=== PATIENT | female | born 1940 | race Caucasian/White ===

== ENCOUNTER → 2016-10-22 | Outpatient (CLI) | payer OTHER ==
[~2016-10-22] MED LIST: AMLO10TA2 PO; ASPI-231 PO; CALC600T10 OR; CIPR-173 PO; CLON0.5T PO; CYAN500T25 PO; DICY10CA55 PO; EST0625T PO; FLUO40CA PO; FLUT250A IN; LACT10CA2 OR; LANS15CA21 PO; LEVO75TA50 PO; LOP2C PO; MELO-61 PO; MES400T PO; METO-462 PO; MULTTAB OR; NOR10T PO; OXCA600T3 PO; POTATAB17 PO; PRA1C PO; SIMV40TA96 PO; TRAZ50T PO; [UNRECOGNIZED DRUG - CODE] OR
[2016-10-22 13:17] LABS: Basophils # (auto) 0 uL; Basophils % (auto) 0.4 % (0.0-2.0); Eosinophils # (auto) 0 uL; Eosinophils % (auto) 0.1 % (0.0-7.0); Hematocrit 35.9 % (36.0-46.0); Hemoglobin 12.1 g/dL (12.2-16.2); Lymphocytes # (auto) 0.8 uL; Lymphocytes % (auto) 16.1 % (10.0-50.0); Mean Corpuscular Hemoglobin 30.2 pg (28.0-32.0); Mean Corpuscular Hgb Conc. 33.8 g/dL (32.0-36.0); Mean Corpuscular Volume 89.6 fL (80.0-100.0); Mean Platelet Volume 7.8 fL (7.4-10.4); Monocytes # (auto) 0.4 uL; Monocytes % (auto) 7.9 % (0.0-12.0); Neutrophils # (auto) 3.8 uL; Neutrophils % (auto) 75.5 % (37.0-80.0); Platelet Count (auto) 224 10^3/uL (140-450); Red Cell Distribution Width 14.5 % (11.6-16.0)
[2016-10-22 14:04] LABS: Urine Bilirubin Negative (Negative); Urine Blood Negative /uL (Negative); Urine Color Yellow (Yellow); Urine Glucose Normal (Normal); Urine Ketone Negative (Negative); Urine Mucus FEW (None Seen); Urine RBC 1 /hpf (0 - 4); Urine Squamous Epithelial Cell FEW /hpf (<5); Urine Urobilinogen Normal (Negative); Urine pH 6.5 (5.0-8.0)
[2016-10-22 14:05] LABS: Urine Nitrite POSITIVE (Negative)
[2016-10-22 15:24] LABS: Albumin 3.8 g/dL (3.4-5.0); BUN/Creatinine Ratio 25.6; Bilirubin, Total 0.5 mg/dL (0.2-1.0); Calcium 9.3 mg/dL (8.5-10.1); Potassium 4.4 mmol/L (3.5-5.1); Total Protein 7.3 g/dL (6.4-8.2)
== END | disposition home or self-care (01) ==
LOC: LAB 11:29
PROVIDERS: ATTEND Family Medicine
DX: E03.9 Hypothyroidism, unspecified (principal); I10 Essential (primary) hypertension; M12.9 Arthropathy, unspecified
CPT/HCPCS: 36415; 80053; 80061; 81001; 82306; 82607; 84443; 85025

== ENCOUNTER 2017-06-29 10:42 | Emergency (ER) | payer OTHER ==
[~2017-06-29] VITALS: Ht 165.1 cm; Wt 61.2 kg
[2017-06-29 13:17] VITALS: BP 113/65
== END 2017-06-29 13:20 | disposition home or self-care (01) ==
LOC: ER 10:42
DX: M79.604 Pain in right leg (principal); E78.5 Hyperlipidemia, unspecified; I10 Essential (primary) hypertension; E07.89 Other specified disorders of thyroid; Z90.710 Acquired absence of both cervix and uterus; Z90.89 Acquired absence of other organs; Z79.899 Other long term (current) drug therapy; Z88.6 Allergy status to analgesic agent; Z88.2 Allergy status to sulfonamides
CPT/HCPCS: 93971

== ENCOUNTER 2017-10-29 16:15 | Emergency (ER) | payer OTHER ==
[~2017-10-29] VITALS: Ht 152.4 cm; Wt 59.0 kg
[2017-10-29 16:44] VITALS: BP 106/56
[2017-10-29] MEDS ORDERED: KETOROLAC TROMETH 60MG/2ML VIAL IM ONE (20:00)
[2017-10-29] MEDS ORDERED: TRIAMCINOLONE 40MG/ML 1ML VIAL IM ONE (20:15)
== END 2017-10-29 20:33 | disposition home or self-care (01) ==
LOC: ER 16:23
DX: S39.92XA Unspecified injury of lower back, initial encounter (principal); M62.838 Other muscle spasm; I10 Essential (primary) hypertension; E07.89 Other specified disorders of thyroid; E78.5 Hyperlipidemia, unspecified; Z90.710 Acquired absence of both cervix and uterus; Z90.89 Acquired absence of other organs; Z79.899 Other long term (current) drug therapy; Z88.2 Allergy status to sulfonamides; Z88.6 Allergy status to analgesic agent; Z88.8 Allergy status to other drugs, medicaments and biological substances; W19.XXXA Unspecified fall, initial encounter; Y93.89 Activity, other specified; Y99.8 Other external cause status; Y92.89 Other specified places as the place of occurrence of the external cause
CPT/HCPCS: 70486; 72131; 73120; 96372; 99284; J1885; J3301

== ENCOUNTER → 2017-11-17 | Outpatient (CLI) | payer OTHER ==
[2017-11-17 12:38] LABS: Basophils # (auto) 0.1 uL; Basophils % (auto) 1.1 % (0.0-2.0); Eosinophils # (auto) 0 uL; Hematocrit 38.2 % (36.0-46.0); Hemoglobin 12.8 g/dL (12.2-16.2); Lymphocytes # (auto) 0.9 uL; Lymphocytes % (auto) 18.7 % (10.0-50.0); Mean Corpuscular Hemoglobin 30.1 pg (28.0-32.0); Mean Corpuscular Hgb Conc. 33.4 g/dL (32.0-36.0); Mean Corpuscular Volume 90.1 fL (80.0-100.0); Monocytes # (auto) 0.3 uL; Monocytes % (auto) 6.3 % (0.0-12.0); Neutrophils # (auto) 3.7 uL; Neutrophils % (auto) 72.9 % (37.0-80.0); Nucleated Red Blood Cells % 0.2 %; Platelet Count (auto) 215 10^3/uL (140-450); Red Blood Cells 4.24 10^6/uL (4.0-5.20); Red Cell Distribution Width 14.7 % (11.8-14.3); White Blood Cell 5.1 10^3/uL (4.4-10.8)
[2017-11-17 12:49] LABS: INR 0.92 (0.9-1.15); Partial Thromboplastin Time 23.5 sec (22.64-33.71)
[2017-11-17 12:53] LABS: Urine Bacteria MOD /hpf (None Seen); Urine Blood Negative /uL (Negative); Urine Hyaline Cast FEW /lpf (0 - 2); Urine Mucus FEW (None Seen); Urine Specific Gravity 1.034 (1.001-1.035); Urine WBC 24 /hpf (0 - 5)
[2017-11-17 13:30] LABS: Bilirubin, Total 0.5 mg/dL (0.2-1.0); Calcium 9.1 mg/dL (8.5-10.1); Potassium 3.8 mmol/L (3.5-5.1); Total Protein 7.4 g/dL (6.4-8.2)
== END | disposition home or self-care (01) ==
LOC: LAB 12:20
PROVIDERS: ATTEND Family Medicine
DX: Z01.811 Encounter for preprocedural respiratory examination (principal); H33.20 Serous retinal detachment, unspecified eye; I10 Essential (primary) hypertension; E78.5 Hyperlipidemia, unspecified; Z79.899 Other long term (current) drug therapy
CPT/HCPCS: 36415; 80053; 81001; 85025; 85610; 85730

== ENCOUNTER 2018-03-10 09:11 | Inpatient (IN) | payer OTHER ==
[~2018-03-10] VITALS: Ht 152.4 cm; Wt 62.0 kg
[2018-03-10 09:57] LABS: Basophils # (auto) 0.1 uL; Basophils % (auto) 0.8 % (0.0-2.0); Eosinophils # (auto) 0 uL; Eosinophils % (auto) 0.4 % (0.0-7.0); Hematocrit 35.3 % (36.0-46.0); Hemoglobin 12.5 g/dL (12.2-16.2); Lymphocytes # (auto) 1.2 uL; Lymphocytes % (auto) 19.7 % (10.0-50.0); Mean Corpuscular Hemoglobin 31.4 pg (28.0-32.0); Mean Corpuscular Hgb Conc. 35.3 g/dL (32.0-36.0); Mean Corpuscular Volume 88.9 fL (80.0-100.0); Monocytes # (auto) 0.4 uL; Neutrophils # (auto) 4.6 uL; Neutrophils % (auto) 73.1 % (37.0-80.0); Nucleated Red Blood Cells % 0.3 %; Platelet Count (auto) 222 10^3/uL (140-450); Red Blood Cells 3.98 10^6/uL (4.0-5.20); Red Cell Distribution Width 14.7 % (11.8-14.3); White Blood Cell 6.3 10^3/uL (4.4-10.8)
[2018-03-10 10:14] LABS: Albumin 3.8 g/dL (3.4-5.0); BUN/Creatinine Ratio 14.5; Bilirubin, Total 0.6 mg/dL (0.2-1.0); Calcium 8.8 mg/dL (8.5-10.1); Potassium 3.7 mmol/L (3.5-5.1); Total Protein 6.9 g/dL (6.4-8.2)
[2018-03-10] MEDS ORDERED: SODIUM CHLORIDE 0.9% 1,000 ML IVB ONE (11:11)
[2018-03-10] MEDS ORDERED: NALBUPHINE HCL 10 MG/1ml INJECTION IV ONE (11:15)
[2018-03-10] MEDS ORDERED: PROMETHAZINE HCL 25 MG/ML 1ML IV PRN (11:15)
[2018-03-10 11:50] LABS: Magnesium 1.8 mg/dL (1.6-2.6)
[2018-03-10 14:12] LABS: Urine Bacteria NONE SEEN /hpf (None Seen); Urine Blood Negative /uL (Negative); Urine Specific Gravity 1.021 (1.001-1.035); Urine WBC 1 /hpf (0 - 5)
[2018-03-10] MEDS ORDERED: NITROGLYCERIN 0.4 MG SL TAB SL PRN (15:15)
[2018-03-10] MEDS ORDERED: MORPHINE SULF INJ 2 MG/ML SYRINGE 1ML IV PRN (15:15)
[2018-03-10] MEDS ORDERED: ACETAMINOPHEN 500 MG TAB PO PRN (15:15)
[2018-03-10] MEDS: SODIUM CHLORIDE 0.9% 1,000 ML IV SCH ×2 (15:19→15:26)
[2018-03-10] MEDS: PANTOPRAZOLE 40 MG/10 ML VIAL IV ONE ×2 (15:19→15:27)
[2018-03-10] MEDS ORDERED: GASTROGRAFIN 30 ML SOL ONE (15:24)
[2018-03-10] MEDS: PROMETHAZINE HCL 25 MG/ML 1ML IV PRN (15:32)
[2018-03-10 15:41] LABS: CRP High Sensitivity 0.3 mg/dL (< 0.3)
[2018-03-10] MEDS ORDERED: IOHEXOL 300 MG/ML 100ML BOTTLE IJ ONE (17:58)
[2018-03-10] MEDS: prednisoLONE ACETATE 1% OPTH SUSP 5ML RIGHTEYE SCH ×2 (18:15→22:00)
[2018-03-10 18:28] VITALS: BP 119/66
[2018-03-10 20:00] VITALS: BP 119/66
[2018-03-10 20:55] VITALS: BP 119/66
[2018-03-10] MEDS: PANTOPRAZOLE 40 MG/10 ML VIAL IV SCH (23:00)
[2018-03-10] MEDS ORDERED: FLUO20CA19 PO (23:15)
[2018-03-10] MEDS ORDERED: TEMAZEPAM 15 MG CAP PO ONE (23:15)
[2018-03-10] MEDS ORDERED: DICY10CA55 PO (23:15)
[2018-03-10] MEDS ORDERED: ASPI81TA27 PO (23:15)
[2018-03-10] MEDS ORDERED: METO-158 PO (23:15)
[2018-03-10] MEDS ORDERED: MELO-61 PO (23:15)
[2018-03-10] MEDS ORDERED: SIMV40TA96 PO (23:15)
[2018-03-10] MEDS ORDERED: TRAZ150T79 PO (23:15)
[2018-03-10] MEDS ORDERED: LEVO75TA50 PO (23:15)
[2018-03-10] MEDS ORDERED: TRAM50TA2 PO (23:19)
[2018-03-10] MEDS ORDERED: MULT-228 PO (23:19)
[2018-03-10] MEDS ORDERED: CHOL400C12 PO (23:19)
[2018-03-10] MEDS ORDERED: PRA1C PO (23:19)
[2018-03-10] MEDS ORDERED: OXCA150T3 PO (23:19)
[2018-03-10] MEDS: MORPHINE SULFATE 4 MG/ML SYR/VIAL IV PRN (23:40)
[2018-03-11] MEDS: SODIUM CHLORIDE 0.9% 1,000 ML IV SCH ×2 (01:15→11:31)
[2018-03-11] MEDS: prednisoLONE ACETATE 1% OPTH SUSP 5ML RIGHTEYE SCH ×6 (02:00→21:27)
[2018-03-11 05:00] VITALS: BP 132/94
[2018-03-11 07:33] LABS: BUN/Creatinine Ratio 11.3; Bilirubin, Total 0.6 mg/dL (0.2-1.0); Calcium 7.9 mg/dL (8.5-10.1); Potassium 4.7 mmol/L (3.5-5.1); Total Protein 5.6 g/dL (6.4-8.2)
[2018-03-11 08:22] VITALS: BP 132/65
[2018-03-11] MEDS ORDERED: PANTOPRAZOLE 40 MG/10 ML VIAL IV SCH (10:00)
[2018-03-11] MEDS: MORPHINE SULFATE 4 MG/ML SYR/VIAL IV PRN ×4 (10:15→23:58)
[2018-03-11] MEDS: ASPirin-EC 81 mg tab PO SCH (10:39)
[2018-03-11] MEDS: PANTOPRAZOLE 40 MG/10 ML VIAL IV SCH ×2 (10:39→21:27)
[2018-03-11] MEDS: LACTULOSE 20Gm/30ML SOLN PO PRN (11:31)
[2018-03-11 12:56] VITALS: BP 128/71
[2018-03-11] MEDS: PROMETHAZINE HCL 25 MG/ML 1ML IV PRN ×2 (14:22→19:32)
[2018-03-11 22:17] VITALS: BP 132/62
[2018-03-12] MEDS: prednisoLONE ACETATE 1% OPTH SUSP 5ML RIGHTEYE SCH ×6 (02:16→21:20)
[2018-03-12] MEDS: SODIUM CHLORIDE 0.9% 1,000 ML IV SCH ×3 (02:16→17:15)
[2018-03-12 05:20] VITALS: BP 160/82
[2018-03-12 06:09] LABS: Basophils # (auto) 0.1 uL; Basophils % (auto) 1.1 % (0.0-2.0); Eosinophils # (auto) 0.1 uL; Eosinophils % (auto) 2.1 % (0.0-7.0); Hematocrit 30.2 % (36.0-46.0); Hemoglobin 10.8 g/dL (12.2-16.2); Lymphocytes # (auto) 1.7 uL; Lymphocytes % (auto) 33.9 % (10.0-50.0); Mean Corpuscular Hemoglobin 32.1 pg (28.0-32.0); Mean Corpuscular Hgb Conc. 35.7 g/dL (32.0-36.0); Mean Corpuscular Volume 89.9 fL (80.0-100.0); Monocytes # (auto) 0.4 uL; Monocytes % (auto) 8.1 % (0.0-12.0); Neutrophils # (auto) 2.7 uL; Neutrophils % (auto) 54.8 % (37.0-80.0); Nucleated Red Blood Cells % 0.1 %; Platelet Count (auto) 172 10^3/uL (140-450); Red Blood Cells 3.36 10^6/uL (4.0-5.20); Red Cell Distribution Width 14.2 % (11.8-14.3); White Blood Cell 4.9 10^3/uL (4.4-10.8)
[2018-03-12 06:38] LABS: BUN/Creatinine Ratio 5.6; Calcium 8.3 mg/dL (8.5-10.1); Potassium 4.2 mmol/L (3.5-5.1)
[2018-03-12 08:46] VITALS: BP 140/75
[2018-03-12] MEDS: LACTULOSE 20Gm/30ML SOLN PO PRN (09:00)
[2018-03-12] MEDS: PANTOPRAZOLE 40 MG/10 ML VIAL IV SCH ×2 (11:46→21:20)
[2018-03-12] MEDS: ASPirin-EC 81 mg tab PO SCH (11:47)
[2018-03-12] MEDS ORDERED: hydrALAZINE HCL 20 MG/ML VL IV PRN (12:00)
[2018-03-12 13:00] VITALS: BP 150/81
[2018-03-12] MEDS: MORPHINE SULFATE 4 MG/ML SYR/VIAL IV PRN ×4 (13:26→23:23)
[2018-03-12] MEDS: PROMETHAZINE HCL 25 MG/ML 1ML IV PRN ×2 (13:26→18:14)
[2018-03-12 17:04] VITALS: BP 152/101
[2018-03-12 21:59] VITALS: BP 135/70
[2018-03-13] MEDS: prednisoLONE ACETATE 1% OPTH SUSP 5ML RIGHTEYE SCH ×6 (01:57→21:09)
[2018-03-13] MEDS: SODIUM CHLORIDE 0.9% 1,000 ML IV SCH ×3 (04:27→17:18)
[2018-03-13 05:00] VITALS: BP 128/74
[2018-03-13 07:03] LABS: Basophils # (auto) 0.1 uL; Basophils % (auto) 1.2 % (0.0-2.0); Eosinophils # (auto) 0.1 uL; Eosinophils % (auto) 1.7 % (0.0-7.0); Hematocrit 35.5 % (36.0-46.0); Hemoglobin 12.4 g/dL (12.2-16.2); Lymphocytes # (auto) 1.4 uL; Lymphocytes % (auto) 24.5 % (10.0-50.0); Mean Corpuscular Hemoglobin 31.8 pg (28.0-32.0); Mean Corpuscular Hgb Conc. 34.9 g/dL (32.0-36.0); Mean Corpuscular Volume 91.1 fL (80.0-100.0); Monocytes # (auto) 0.5 uL; Monocytes % (auto) 7.8 % (0.0-12.0); Neutrophils # (auto) 3.7 uL; Neutrophils % (auto) 64.8 % (37.0-80.0); Nucleated Red Blood Cells % 0.2 %; Platelet Count (auto) 205 10^3/uL (140-450); Red Cell Distribution Width 14.1 % (11.8-14.3); White Blood Cell 5.8 10^3/uL (4.4-10.8)
[2018-03-13 07:23] LABS: BUN/Creatinine Ratio 3.4; Calcium 8.6 mg/dL (8.5-10.1)
[2018-03-13 09:25] VITALS: BP 138/85
[2018-03-13] MEDS: PANTOPRAZOLE 40 MG/10 ML VIAL IV SCH ×2 (10:22→21:09)
[2018-03-13] MEDS: ASPirin-EC 81 mg tab PO SCH (10:23)
[2018-03-13] MEDS: MORPHINE SULFATE 4 MG/ML SYR/VIAL IV PRN (12:18)
[2018-03-13 13:00] VITALS: BP 140/72
[2018-03-13 17:03] VITALS: BP 127/86
[2018-03-13] MEDS: ENSURE CLEAR Mixed Berry 8oz Carton PO SCH (18:00)
[2018-03-13] MEDS: MORPHINE SULF INJ 2 MG/ML SYRINGE 1ML IV PRN (21:09)
[2018-03-13 22:00] VITALS: BP 135/78
[2018-03-13] MEDS: LORazepam 0.5 MG TAB PO PRN (22:14)
[2018-03-14] MEDS: prednisoLONE ACETATE 1% OPTH SUSP 5ML RIGHTEYE SCH ×6 (01:57→22:43)
[2018-03-14 05:00] VITALS: BP 135/73
[2018-03-14 06:10] LABS: Basophils # (auto) 0.1 uL; Basophils % (auto) 1.2 % (0.0-2.0); Eosinophils # (auto) 0.1 uL; Eosinophils % (auto) 3.1 % (0.0-7.0); Hematocrit 31.9 % (36.0-46.0); Hemoglobin 11.4 g/dL (12.2-16.2); Lymphocytes # (auto) 1.2 uL; Lymphocytes % (auto) 26.4 % (10.0-50.0); Mean Corpuscular Hemoglobin 32.5 pg (28.0-32.0); Mean Corpuscular Hgb Conc. 35.7 g/dL (32.0-36.0); Mean Corpuscular Volume 91.1 fL (80.0-100.0); Monocytes # (auto) 0.4 uL; Monocytes % (auto) 8.2 % (0.0-12.0); Neutrophils # (auto) 2.8 uL; Neutrophils % (auto) 61.1 % (37.0-80.0); Nucleated Red Blood Cells % 0.1 %; Platelet Count (auto) 173 10^3/uL (140-450); Red Cell Distribution Width 14.1 % (11.8-14.3); White Blood Cell 4.5 10^3/uL (4.4-10.8)
[2018-03-14 06:30] LABS: Calcium 8.6 mg/dL (8.5-10.1)
[2018-03-14 06:32] LABS: BUN/Creatinine Ratio 3.9
[2018-03-14 09:00] VITALS: BP 128/77
[2018-03-14] MEDS: ASPirin-EC 81 mg tab PO SCH (09:37)
[2018-03-14] MEDS: PANTOPRAZOLE 40 MG/10 ML VIAL IV SCH ×2 (09:37→21:20)
[2018-03-14] MEDS: ENSURE CLEAR Mixed Berry 8oz Carton PO SCH ×2 (09:37→17:40)
[2018-03-14] MEDS: SODIUM CHLORIDE 0.9% 1,000 ML IV SCH (09:37)
[2018-03-14 10:44] LABS: INR 0.96 (0.9-1.15); Partial Thromboplastin Time 24.2 sec (23.78-33.04); Prothrombin Time 10.3 sec (9.27-12.13)
[2018-03-14] MEDS ORDERED: GOLYTELY 4L KIT PO ONE (12:00)
[2018-03-14] MEDS: MORPHINE SULF INJ 2 MG/ML SYRINGE 1ML IV PRN (12:26)
[2018-03-14 13:00] VITALS: BP 127/75
[2018-03-14] MEDS: LORazepam 0.5 MG TAB PO PRN ×2 (15:22→23:31)
[2018-03-14 17:00] VITALS: BP 144/61
[2018-03-14] MEDS ORDERED: MORPHINE SULF INJ 2 MG/ML SYRINGE 1ML IV PRN (17:45)
[2018-03-14] MEDS: MORPHINE SULFATE 4 MG/ML SYR/VIAL IV PRN (21:20)
[2018-03-14 22:00] VITALS: BP 171/97
[2018-03-15] MEDS ORDERED: METOPROLOL TARTRATE 1MG/1ML-5ML VIAL IV ONE (01:45)
[2018-03-15] MEDS: prednisoLONE ACETATE 1% OPTH SUSP 5ML RIGHTEYE SCH ×6 (01:48→22:11)
[2018-03-15] MEDS: TEMAZEPAM 15 MG CAP PO PRN ×2 (02:11→22:12)
[2018-03-15] MEDS: SODIUM CHLORIDE 0.9% 1,000 ML IV SCH ×2 (02:20→19:00)
[2018-03-15] MEDS ORDERED: GOLYTELY 4L KIT PO ONE (05:00)
[2018-03-15 05:41] VITALS: BP 117/53
[2018-03-15 07:38] LABS: Basophils # (auto) 0.1 uL; Basophils % (auto) 1.4 % (0.0-2.0); Eosinophils # (auto) 0.2 uL; Eosinophils % (auto) 3.2 % (0.0-7.0); Hematocrit 28.8 % (36.0-46.0); Hemoglobin 9.9 g/dL (12.2-16.2); Lymphocytes # (auto) 1.7 uL; Lymphocytes % (auto) 34.7 % (10.0-50.0); Mean Corpuscular Hemoglobin 31.4 pg (28.0-32.0); Mean Corpuscular Hgb Conc. 34.4 g/dL (32.0-36.0); Mean Corpuscular Volume 91.3 fL (80.0-100.0); Monocytes # (auto) 0.4 uL; Monocytes % (auto) 7.3 % (0.0-12.0); Neutrophils # (auto) 2.6 uL; Neutrophils % (auto) 53.4 % (37.0-80.0); Nucleated Red Blood Cells % 0.1 %; Platelet Count (auto) 158 10^3/uL (140-450); Red Blood Cells 3.16 10^6/uL (4.0-5.20); Red Cell Distribution Width 14.5 % (11.8-14.3); White Blood Cell 4.9 10^3/uL (4.4-10.8)
[2018-03-15 07:56] LABS: BUN/Creatinine Ratio 2.9; Calcium 8.2 mg/dL (8.5-10.1); Potassium 3.7 mmol/L (3.5-5.1)
[2018-03-15] MEDS: ENSURE CLEAR Mixed Berry 8oz Carton PO SCH ×2 (08:00→18:00)
[2018-03-15] MEDS ORDERED: SODIUM CHLORIDE LOCK 10 ML ONE (08:11)
[2018-03-15] MEDS ORDERED: LIDOCAINE VISCOUS 2% 15ML UD ONE (08:12)
[2018-03-15] MEDS ORDERED: diphenhdrAMINE HCL 50 MG/1 ML VL ONE (08:12)
[2018-03-15 08:15] VITALS: BP 140/66
[2018-03-15] MEDS: MORPHINE SULFATE 4 MG/ML SYR/VIAL IV PRN ×3 (09:28→20:35)
[2018-03-15] MEDS ORDERED: D5W/SOD CHL 0.45%/KCL 40MEQ 1,000 ML IV ONE (09:45)
[2018-03-15] MEDS: MIDAZOLAM HCL 5 MG/ML-1ML VIAL ONE ×2 (10:09→10:12)
[2018-03-15] MEDS: fentaNYL CITRATE 100 MCG/2 ML VL ONE ×2 (10:09→10:12)
[2018-03-15] MEDS: ASPirin-EC 81 mg tab PO SCH (12:59)
[2018-03-15] MEDS: METOPROLOL TARTRATE 50 MG TAB PO SCH ×2 (13:00→22:10)
[2018-03-15 17:00] VITALS: BP 137/61
[2018-03-15 22:00] VITALS: BP 133/71
[2018-03-15] MEDS: PANTOPRAZOLE 40 MG TAB PO SCH (22:11)
[2018-03-16] MEDS: prednisoLONE ACETATE 1% OPTH SUSP 5ML RIGHTEYE SCH ×6 (02:00→22:13)
[2018-03-16 05:39] VITALS: BP 139/79
[2018-03-16 06:24] LABS: Basophils # (auto) 0.1 uL; Basophils % (auto) 1.2 % (0.0-2.0); Eosinophils # (auto) 0.2 uL; Eosinophils % (auto) 3.2 % (0.0-7.0); Hematocrit 30.2 % (36.0-46.0); Hemoglobin 10.6 g/dL (12.2-16.2); Lymphocytes # (auto) 1.5 uL; Lymphocytes % (auto) 28.7 % (10.0-50.0); Mean Corpuscular Hemoglobin 32.2 pg (28.0-32.0); Mean Corpuscular Hgb Conc. 35.1 g/dL (32.0-36.0); Mean Corpuscular Volume 91.7 fL (80.0-100.0); Monocytes # (auto) 0.4 uL; Monocytes % (auto) 7.9 % (0.0-12.0); Nucleated Red Blood Cells % 0.1 %; Platelet Count (auto) 159 10^3/uL (140-450); Red Cell Distribution Width 14.4 % (11.8-14.3); White Blood Cell 5.2 10^3/uL (4.4-10.8)
[2018-03-16 06:43] LABS: Potassium 4.3 mmol/L (3.5-5.1)
[2018-03-16 06:47] LABS: BUN/Creatinine Ratio 7.8; Calcium 8.3 mg/dL (8.5-10.1)
[2018-03-16 08:00] VITALS: BP 143/86
[2018-03-16] MEDS: ENSURE CLEAR Mixed Berry 8oz Carton PO SCH ×2 (08:00→18:00)
[2018-03-16 08:55] VITALS: BP 143/86
[2018-03-16] MEDS ORDERED: GOLYTELY 4L KIT PO ONE (10:30)
[2018-03-16] MEDS: PANTOPRAZOLE 40 MG TAB PO SCH ×2 (11:45→22:13)
[2018-03-16] MEDS: ASPirin-EC 81 mg tab PO SCH (11:45)
[2018-03-16] MEDS: METOPROLOL TARTRATE 50 MG TAB PO SCH ×2 (11:45→22:14)
[2018-03-16 11:54] VITALS: BP 154/74
[2018-03-16] MEDS: MORPHINE SULFATE 4 MG/ML SYR/VIAL IV PRN ×3 (11:55→22:24)
[2018-03-16] MEDS: SODIUM CHLORIDE 0.9% 1,000 ML IV SCH (16:07)
[2018-03-16 17:46] VITALS: BP 131/76
[2018-03-16 21:40] VITALS: BP 142/98
[2018-03-17] MEDS: prednisoLONE ACETATE 1% OPTH SUSP 5ML RIGHTEYE SCH ×4 (02:34→14:00)
[2018-03-17] MEDS: MORPHINE SULFATE 4 MG/ML SYR/VIAL IV PRN ×2 (02:34→06:34)
[2018-03-17] MEDS: SODIUM CHLORIDE 0.9% 1,000 ML IV SCH (04:20)
[2018-03-17 05:08] VITALS: BP 112/73
[2018-03-17] MEDS ORDERED: GOLYTELY 4L KIT PO ONE (06:00)
[2018-03-17] MEDS ORDERED: D5W/SOD CHL 0.45%/KCL 20MEQ 1,000 ML IV ONE (06:00)
[2018-03-17 06:06] LABS: Basophils # (auto) 0 uL; Basophils % (auto) 0.8 % (0.0-2.0); Eosinophils # (auto) 0.1 uL; Eosinophils % (auto) 1.7 % (0.0-7.0); Hemoglobin 10.6 g/dL (12.2-16.2); Lymphocytes # (auto) 1.3 uL; Lymphocytes % (auto) 21.5 % (10.0-50.0); Mean Corpuscular Hemoglobin 32.6 pg (28.0-32.0); Mean Corpuscular Hgb Conc. 35.4 g/dL (32.0-36.0); Mean Corpuscular Volume 92.1 fL (80.0-100.0); Monocytes # (auto) 0.5 uL; Monocytes % (auto) 8.6 % (0.0-12.0); Neutrophils % (auto) 67.4 % (37.0-80.0); Platelet Count (auto) 163 10^3/uL (140-450); Red Blood Cells 3.25 10^6/uL (4.0-5.20); Red Cell Distribution Width 14.2 % (11.8-14.3)
[2018-03-17 06:25] LABS: Potassium 4.4 mmol/L (3.5-5.1)
[2018-03-17 06:32] LABS: BUN/Creatinine Ratio 7.6; Calcium 8.3 mg/dL (8.5-10.1)
[2018-03-17 08:00] VITALS: BP 126/75
[2018-03-17] MEDS: ENSURE CLEAR Mixed Berry 8oz Carton PO SCH (08:00)
[2018-03-17] MEDS ORDERED: diphenhdrAMINE HCL 50 MG/1 ML VL ONE (08:31)
[2018-03-17] MEDS ORDERED: SODIUM CHLORIDE LOCK 10 ML ONE (08:31)
[2018-03-17 09:00] VITALS: BP 126/65
[2018-03-17] MEDS: ASPirin-EC 81 mg tab PO SCH (09:48)
[2018-03-17] MEDS: PANTOPRAZOLE 40 MG TAB PO SCH (10:00)
[2018-03-17] MEDS: METOPROLOL TARTRATE 50 MG TAB PO SCH (10:00)
[2018-03-17] MEDS: fentaNYL CITRATE 100 MCG/2 ML VL ONE ×3 (12:36→12:45)
[2018-03-17] MEDS: MIDAZOLAM HCL 5 MG/ML-1ML VIAL ONE ×3 (12:36→12:45)
[2018-03-17 13:00] VITALS: BP 137/82
[2018-03-17 13:29] VITALS: BP 123/51
[2018-03-17] MEDS ORDERED: SODIUM CHLORIDE 0.9% 1,000 ML IV SCH (16:00)
== END 2018-03-17 15:00 | disposition home or self-care (01) | DRG 392 ==
LOC: ER 09:11 → TELE 09:12 → MERGE 09:12 → TELE-CENTR 18:28
PROVIDERS: ADMIT Internal Medicine; ATTEND Internal Medicine
PROC: 0DB68ZX Excision of Stomach, Via Natural or Artificial Opening Endoscopic, Diagnostic (ICD-10-PCS; principal; 2018-03-10)
PROC: 0DBL8ZX Excision of Transverse Colon, Via Natural or Artificial Opening Endoscopic, Diagnostic (ICD-10-PCS; 2018-03-10)
DX: K29.70 Gastritis, unspecified, without bleeding (principal); E87.1 Hypo-osmolality and hyponatremia; E44.0 Moderate protein-calorie malnutrition; R64 Cachexia; D64.9 Anemia, unspecified; E78.5 Hyperlipidemia, unspecified; F03.90 Unspecified dementia, unspecified severity, without behavioral disturbance, psychotic disturbance, mood disturbance, and anxiety; G89.29 Other chronic pain; I10 Essential (primary) hypertension; I25.10 Atherosclerotic heart disease of native coronary artery without angina pectoris; G25.0 Essential tremor; K52.9 Noninfective gastroenteritis and colitis, unspecified; F41.9 Anxiety disorder, unspecified; M54.9 Dorsalgia, unspecified; M19.90 Unspecified osteoarthritis, unspecified site; I70.90 Unspecified atherosclerosis; M47.9 Spondylosis, unspecified; K63.5 Polyp of colon; Z90.710 Acquired absence of both cervix and uterus; Z98.1 Arthrodesis status; Z68.26 Body mass index [BMI] 26.0-26.9, adult; Z88.5 Allergy status to narcotic agent; Z88.2 Allergy status to sulfonamides; Z88.8 Allergy status to other drugs, medicaments and biological substances
CPT/HCPCS: 36415; 43239; 45380; 71046; 74176; 74177; 80048; 80053; 81001; 82150; 82378; 82550; 83690; 83735; 83880; 84443; 84484; 85025; 85610; 85652; 85730; 86141; 93005; 93306; 96361; 96374; 96375; A6257; C9113; J2250

== ENCOUNTER 2018-03-18 20:33 | Inpatient (IN) | payer OTHER ==
[~2018-03-18] VITALS: Ht 152.4 cm; Wt 57.8 kg
[~2018-03-18 20:33] MED LIST changes: +ASPI81TA27 PO; +CHOL400C12 PO; +FLUO20CA19 PO; +METO-158 PO; +MULT-228 PO; +OXCA150T3 PO; +TRAM50TA2 PO; +TRAZ150T79 PO
[2018-03-18 21:56] LABS: Basophils # (auto) 0.1 uL; Basophils % (auto) 1.4 % (0.0-2.0); Eosinophils # (auto) 0 uL; Eosinophils % (auto) 0.7 % (0.0-7.0); Hematocrit 33.4 % (36.0-46.0); Hemoglobin 11.5 g/dL (12.2-16.2); Lymphocytes # (auto) 1.3 uL; Lymphocytes % (auto) 18.9 % (10.0-50.0); Mean Corpuscular Hemoglobin 31.5 pg (28.0-32.0); Mean Corpuscular Hgb Conc. 34.3 g/dL (32.0-36.0); Mean Corpuscular Volume 91.7 fL (80.0-100.0); Monocytes # (auto) 0.3 uL; Monocytes % (auto) 4.4 % (0.0-12.0); Neutrophils # (auto) 5.1 uL; Neutrophils % (auto) 74.6 % (37.0-80.0); Nucleated Red Blood Cells % 0.3 %; Platelet Count (auto) 214 10^3/uL (140-450); Red Blood Cells 3.65 10^6/uL (4.0-5.20); Red Cell Distribution Width 14.4 % (11.8-14.3); White Blood Cell 6.9 10^3/uL (4.4-10.8)
[2018-03-18 22:10] LABS: INR 0.97 (0.9-1.15); Partial Thromboplastin Time 24.5 sec (23.78-33.04); Prothrombin Time 10.4 sec (9.27-12.13)
[2018-03-18 22:17] LABS: Albumin 3.2 g/dL (3.4-5.0); BUN/Creatinine Ratio 7.8; Bilirubin, Total 0.6 mg/dL (0.2-1.0); Calcium 8.3 mg/dL (8.5-10.1); Magnesium 1.8 mg/dL (1.6-2.6); Potassium 3.4 mmol/L (3.5-5.1); Total Protein 6.3 g/dL (6.4-8.2)
[2018-03-18] MEDS ORDERED: LORazepam 2MG/ML-1ML VIAL IV ONE (23:30)
[2018-03-18 23:52] LABS: Urine Bacteria NONE SEEN /hpf (None Seen); Urine Blood Negative /uL (Negative); Urine Hyaline Cast FEW /lpf (0 - 2); Urine Mucus FEW (None Seen); Urine Specific Gravity 1.025 (1.001-1.035); Urine WBC 7 /hpf (0 - 5)
[2018-03-19] MEDS ORDERED: DOCUSATE SOD 100 MG CAP PO PRN (03:15)
[2018-03-19] MEDS ORDERED: NITROGLYCERIN 0.4 MG SL TAB SL PRN (03:15)
[2018-03-19] MEDS ORDERED: MORPHINE SULF INJ 2 MG/ML SYRINGE 1ML IV PRN (03:15)
[2018-03-19] MEDS ORDERED: POTASSIUM CHL 20 Meq TABLET PO ONE (04:30)
[2018-03-19] MEDS ORDERED: IOHEXOL 350 MG/ML 100ML IJ ONE (05:24)
[2018-03-19] MEDS: MESALAMINE 400mg Delayed Release Cap PO SCH ×3 (06:14→21:43)
[2018-03-19] MEDS: LEVOTHYROXINE SODIUM 25 MCG TAB PO SCH (06:21)
[2018-03-19] MEDS ORDERED: LORazepam 2MG/ML-1ML VIAL IV PRN ×2 (09:00)
[2018-03-19] MEDS ORDERED: cefTRIAXone 1GM/10ml IVPUSH 10 ML IV SCH (09:00)
[2018-03-19] MEDS: ENOXAPARIN SOD 40 MG/0.4 ML SYRINGE SC SCH (09:50)
[2018-03-19] MEDS: FLUoxetine HCL 20 MG CAP PO SCH (09:50)
[2018-03-19] MEDS: amLODIPine BESYLATE 5 MG TAB PO SCH (09:51)
[2018-03-19] MEDS: METOPROLOL TARTRATE 50 MG TAB PO SCH ×2 (09:52→21:48)
[2018-03-19] MEDS ORDERED: FAMOTIDINE 20 MG TAB PO SCH (10:00)
[2018-03-19] MEDS ORDERED: OXcarbazepine 300 MG TAB PO SCH (10:00)
[2018-03-19] MEDS ORDERED: clonazePAM 0.5 MG TAB PO SCH (10:00)
[2018-03-19] MEDS: ACETAMINOPHEN 325 MG TAB PO PRN (13:07)
[2018-03-19] MEDS ORDERED: OXCA600T3 PO (13:56)
[2018-03-19] MEDS ORDERED: clonazePAM 0.5 MG TAB PO PRN (15:45)
[2018-03-19 19:17] VITALS: BP 141/81
[2018-03-19 19:31] VITALS: BP 141/81
[2018-03-19 20:00] VITALS: BP 143/71
[2018-03-19] MEDS: OXcarbazepine 300 MG TAB PO SCH (21:43)
[2018-03-19] MEDS: PANTOPRAZOLE 40 MG TAB PO SCH (21:43)
[2018-03-19] MEDS: TEMAZEPAM 15 MG CAP PO PRN (21:44)
[2018-03-19] MEDS: HYDROcodone-ACET 5/325MG TAB PO PRN (21:44)
[2018-03-19 21:52] VITALS: BP 143/71
[2018-03-20 04:45] VITALS: BP 155/73
[2018-03-20 05:00] LABS: Basophils # (auto) 0.1 uL; Basophils % (auto) 2.4 % (0.0-2.0); Eosinophils # (auto) 0.1 uL; Eosinophils % (auto) 1.9 % (0.0-7.0); Hematocrit 29.9 % (36.0-46.0); Hemoglobin 10.5 g/dL (12.2-16.2); Lymphocytes # (auto) 1.5 uL; Lymphocytes % (auto) 34.2 % (10.0-50.0); Mean Corpuscular Hemoglobin 31.7 pg (28.0-32.0); Mean Corpuscular Hgb Conc. 35.1 g/dL (32.0-36.0); Mean Corpuscular Volume 90.4 fL (80.0-100.0); Monocytes # (auto) 0.3 uL; Monocytes % (auto) 7.7 % (0.0-12.0); Neutrophils # (auto) 2.4 uL; Neutrophils % (auto) 53.8 % (37.0-80.0); Nucleated Red Blood Cells % 0.2 %; Platelet Count (auto) 176 10^3/uL (140-450); Red Cell Distribution Width 14.1 % (11.8-14.3); White Blood Cell 4.5 10^3/uL (4.4-10.8)
[2018-03-20 05:18] LABS: Albumin 2.8 g/dL (3.4-5.0); BUN/Creatinine Ratio 8.4; Calcium 7.9 mg/dL (8.5-10.1); Potassium 3.3 mmol/L (3.5-5.1)
[2018-03-20 05:20] LABS: Bilirubin, Total 0.4 mg/dL (0.2-1.0); Total Protein 5.6 g/dL (6.4-8.2)
[2018-03-20] MEDS: LEVOTHYROXINE SODIUM 25 MCG TAB PO SCH (05:55)
[2018-03-20] MEDS: MESALAMINE 400mg Delayed Release Cap PO SCH ×3 (05:56→22:30)
[2018-03-20 08:22] VITALS: BP 122/69
[2018-03-20] MEDS: ENOXAPARIN SOD 40 MG/0.4 ML SYRINGE SC SCH (10:29)
[2018-03-20] MEDS: amLODIPine BESYLATE 5 MG TAB PO SCH (10:30)
[2018-03-20] MEDS: ACETAMINOPHEN 325 MG TAB PO PRN (10:30)
[2018-03-20] MEDS: METOPROLOL TARTRATE 50 MG TAB PO SCH ×2 (10:31→22:31)
[2018-03-20] MEDS: PANTOPRAZOLE 40 MG TAB PO SCH ×2 (10:31→22:31)
[2018-03-20] MEDS: FLUoxetine HCL 20 MG CAP PO SCH (10:31)
[2018-03-20] MEDS: OXcarbazepine 300 MG TAB PO SCH ×2 (10:32→22:31)
[2018-03-20 12:05] VITALS: BP 136/62
[2018-03-20] MEDS ORDERED: POTASSIUM CHL 20 Meq TABLET PO ONE (14:45)
[2018-03-20 16:43] VITALS: BP 129/63
[2018-03-20] MEDS ORDERED: VANCOMYCIN HCL 125MG/5ML ORAL SOL GT SCH (18:00)
[2018-03-20] MEDS: HYDROcodone-ACET 5/325MG TAB PO PRN (20:26)
[2018-03-20 22:00] VITALS: BP 114/79
[2018-03-20] MEDS: TEMAZEPAM 15 MG CAP PO PRN (22:31)
[2018-03-20] MEDS: VANCOMYCIN HCL 125MG/5ML ORAL SOL PO ONE ×2 (22:31→22:37)
[2018-03-21] MEDS: HYDROcodone-ACET 5/325MG TAB PO PRN ×3 (03:36→20:16)
[2018-03-21 04:57] VITALS: BP 131/75
[2018-03-21] MEDS: LEVOTHYROXINE SODIUM 25 MCG TAB PO SCH (06:27)
[2018-03-21] MEDS: MESALAMINE 400mg Delayed Release Cap PO SCH ×3 (06:27→21:30)
[2018-03-21] MEDS: VANCOMYCIN HCL 125MG/5ML ORAL SOL PO SCH ×4 (06:27→21:30)
[2018-03-21 08:00] VITALS: BP 134/79
[2018-03-21 08:15] VITALS: BP 134/79
[2018-03-21] MEDS: METOPROLOL TARTRATE 50 MG TAB PO SCH ×2 (10:00→21:31)
[2018-03-21] MEDS: PANTOPRAZOLE 40 MG TAB PO SCH ×2 (10:46→21:31)
[2018-03-21] MEDS: OXcarbazepine 300 MG TAB PO SCH ×2 (10:46→21:31)
[2018-03-21] MEDS: FLUoxetine HCL 20 MG CAP PO SCH (10:46)
[2018-03-21] MEDS: amLODIPine BESYLATE 5 MG TAB PO SCH (10:46)
[2018-03-21] MEDS: ENOXAPARIN SOD 40 MG/0.4 ML SYRINGE SC SCH (10:47)
[2018-03-21 12:09] VITALS: BP 149/77
[2018-03-21 17:22] VITALS: BP 111/70
[2018-03-21 21:29] VITALS: BP 136/76
[2018-03-21] MEDS: TEMAZEPAM 15 MG CAP PO PRN (21:33)
[2018-03-22 04:58] VITALS: BP 147/80
[2018-03-22] MEDS: MESALAMINE 400mg Delayed Release Cap PO SCH ×3 (06:30→22:55)
[2018-03-22] MEDS: VANCOMYCIN HCL 125MG/5ML ORAL SOL PO SCH ×3 (06:30→20:27)
[2018-03-22] MEDS: LEVOTHYROXINE SODIUM 25 MCG TAB PO SCH (06:31)
[2018-03-22 08:00] VITALS: BP 147/80
[2018-03-22 09:00] VITALS: BP 155/86
[2018-03-22] MEDS: METOPROLOL TARTRATE 50 MG TAB PO SCH ×2 (10:05→22:56)
[2018-03-22] MEDS: OXcarbazepine 300 MG TAB PO SCH ×2 (10:06→22:57)
[2018-03-22] MEDS: amLODIPine BESYLATE 5 MG TAB PO SCH (10:06)
[2018-03-22] MEDS: FLUoxetine HCL 20 MG CAP PO SCH (10:06)
[2018-03-22] MEDS: PANTOPRAZOLE 40 MG TAB PO SCH (10:06)
[2018-03-22] MEDS: ENOXAPARIN SOD 40 MG/0.4 ML SYRINGE SC SCH (10:06)
[2018-03-22] MEDS: HYDROcodone-ACET 5/325MG TAB PO PRN (10:07)
[2018-03-22] MEDS ORDERED: MORPHINE SULF INJ 2 MG/ML SYRINGE 1ML IV PRN (12:00)
[2018-03-22] MEDS: MORPHINE SULF INJ 2 MG/ML SYRINGE 1ML IV PRN ×3 (12:10→22:55)
[2018-03-22 12:45] VITALS: BP 136/71
[2018-03-22 17:00] VITALS: BP 143/65
[2018-03-22] MEDS: metroNIDAZOLE 500MG/100ML 100 ML IV SCH ×2 (17:07→22:55)
[2018-03-22 22:00] VITALS: BP 155/86
[2018-03-23] MEDS: TEMAZEPAM 15 MG CAP PO PRN (01:15)
[2018-03-23 05:00] VITALS: BP 146/76
[2018-03-23] MEDS: MESALAMINE 400mg Delayed Release Cap PO SCH ×3 (06:04→22:54)
[2018-03-23] MEDS: VANCOMYCIN HCL 125MG/5ML ORAL SOL PO SCH ×5 (06:04→22:53)
[2018-03-23] MEDS: LEVOTHYROXINE SODIUM 25 MCG TAB PO SCH (06:04)
[2018-03-23] MEDS: metroNIDAZOLE 500MG/100ML 100 ML IV SCH ×3 (06:04→22:52)
[2018-03-23 06:33] LABS: Basophils # (auto) 0 uL; Basophils % (auto) 0.7 % (0.0-2.0); Eosinophils # (auto) 0 uL; Eosinophils % (auto) 1.1 % (0.0-7.0); Hematocrit 32.8 % (36.0-46.0); Hemoglobin 11.5 g/dL (12.2-16.2); Lymphocytes # (auto) 1.3 uL; Lymphocytes % (auto) 28.8 % (10.0-50.0); Mean Corpuscular Hemoglobin 31.7 pg (28.0-32.0); Mean Corpuscular Volume 90.5 fL (80.0-100.0); Monocytes # (auto) 0.3 uL; Monocytes % (auto) 7.7 % (0.0-12.0); Neutrophils # (auto) 2.7 uL; Neutrophils % (auto) 61.7 % (37.0-80.0); Nucleated Red Blood Cells % 0.1 %; Platelet Count (auto) 225 10^3/uL (140-450); Red Blood Cells 3.62 10^6/uL (4.0-5.20); Red Cell Distribution Width 14.3 % (11.8-14.3); White Blood Cell 4.4 10^3/uL (4.4-10.8)
[2018-03-23 06:54] LABS: BUN/Creatinine Ratio 16.2; Calcium 8.3 mg/dL (8.5-10.1); Potassium 3.4 mmol/L (3.5-5.1)
[2018-03-23 07:50] VITALS: BP 169/92
[2018-03-23 08:00] VITALS: BP 144/77
[2018-03-23] MEDS ORDERED: SODIUM CHLORIDE 0.9% 1,000 ML IV ONE (09:15)
[2018-03-23] MEDS ORDERED: clonazePAM 0.5 MG TAB PO PRN (09:15)
[2018-03-23] MEDS: MORPHINE SULF INJ 2 MG/ML SYRINGE 1ML IV PRN ×2 (10:06→22:51)
[2018-03-23] MEDS: METOPROLOL TARTRATE 50 MG TAB PO SCH ×2 (10:07→22:55)
[2018-03-23] MEDS: OXcarbazepine 300 MG TAB PO SCH ×2 (10:07→22:56)
[2018-03-23] MEDS: amLODIPine BESYLATE 5 MG TAB PO SCH (10:07)
[2018-03-23] MEDS: ENOXAPARIN SOD 40 MG/0.4 ML SYRINGE SC SCH (10:08)
[2018-03-23] MEDS: FLUoxetine HCL 20 MG CAP PO SCH (10:08)
[2018-03-23] MEDS: PROMETHAZINE HCL 25 MG/ML 1ML IV PRN ×2 (11:41→22:49)
[2018-03-23] MEDS: HYDROcodone-ACET 5/325MG TAB PO PRN (14:34)
[2018-03-23 17:00] VITALS: BP 127/68
[2018-03-23 22:00] VITALS: BP 124/71
[2018-03-24] MEDS: TEMAZEPAM 15 MG CAP PO PRN (01:23)
[2018-03-24 05:00] VITALS: BP 137/70
[2018-03-24] MEDS: MESALAMINE 400mg Delayed Release Cap PO SCH ×3 (05:40→21:56)
[2018-03-24] MEDS: metroNIDAZOLE 500MG/100ML 100 ML IV SCH (05:40)
[2018-03-24] MEDS: VANCOMYCIN HCL 125MG/5ML ORAL SOL PO SCH (05:41)
[2018-03-24] MEDS: LEVOTHYROXINE SODIUM 25 MCG TAB PO SCH (07:00)
[2018-03-24 09:00] VITALS: BP 144/81
[2018-03-24] MEDS: MORPHINE SULF INJ 2 MG/ML SYRINGE 1ML IV PRN ×3 (11:29→21:57)
[2018-03-24] MEDS: PROMETHAZINE HCL 25 MG/ML 1ML IV PRN ×3 (11:30→21:57)
[2018-03-24] MEDS: FLUoxetine HCL 20 MG CAP PO SCH (11:30)
[2018-03-24] MEDS: OXcarbazepine 300 MG TAB PO SCH ×2 (11:30→21:57)
[2018-03-24] MEDS: ENOXAPARIN SOD 40 MG/0.4 ML SYRINGE SC SCH (11:31)
[2018-03-24] MEDS: METOPROLOL TARTRATE 50 MG TAB PO SCH ×2 (11:31→21:57)
[2018-03-24] MEDS: amLODIPine BESYLATE 5 MG TAB PO SCH (11:31)
[2018-03-24 13:00] VITALS: BP 138/68
[2018-03-24] MEDS: HYDROcodone-ACET 5/325MG TAB PO PRN ×2 (14:38→20:00)
[2018-03-24 17:00] VITALS: BP 141/62
[2018-03-24] MEDS: PANTOPRAZOLE 40 MG TAB PO SCH (21:56)
[2018-03-24 22:11] VITALS: BP 144/78
[2018-03-25] MEDS: PROMETHAZINE HCL 25 MG/ML 1ML IV PRN ×3 (04:28→18:10)
[2018-03-25] MEDS: MORPHINE SULF INJ 2 MG/ML SYRINGE 1ML IV PRN ×3 (04:29→18:10)
[2018-03-25 05:05] VITALS: BP 143/74
[2018-03-25] MEDS: MESALAMINE 400mg Delayed Release Cap PO SCH ×3 (06:06→22:22)
[2018-03-25] MEDS: LEVOTHYROXINE SODIUM 25 MCG TAB PO SCH (06:07)
[2018-03-25 09:00] VITALS: BP 149/78
[2018-03-25] MEDS: PANTOPRAZOLE 40 MG TAB PO SCH (09:37)
[2018-03-25] MEDS: OXcarbazepine 300 MG TAB PO SCH ×2 (09:38→22:22)
[2018-03-25] MEDS: FLUoxetine HCL 20 MG CAP PO SCH (09:38)
[2018-03-25] MEDS: amLODIPine BESYLATE 5 MG TAB PO SCH (09:38)
[2018-03-25] MEDS: ENOXAPARIN SOD 40 MG/0.4 ML SYRINGE SC SCH (09:39)
[2018-03-25] MEDS: METOPROLOL TARTRATE 50 MG TAB PO SCH ×2 (09:43→22:22)
[2018-03-25] MEDS ORDERED: FECAL MICROBIOTA TRANSPLANTATION 30mL SUSPENSION NG ONE (10:00)
[2018-03-25 13:00] VITALS: BP 154/75
[2018-03-25 17:00] VITALS: BP 144/76
[2018-03-25] MEDS: HYDROcodone-ACET 5/325MG TAB PO PRN (20:32)
[2018-03-25 21:44] VITALS: BP 122/71
[2018-03-26] VITALS (7 sets, daily range): BP systolic 105–130; BP diastolic 55–83
[2018-03-26] MEDS: MORPHINE SULF INJ 2 MG/ML SYRINGE 1ML IV PRN (01:30)
[2018-03-26] MEDS: PROMETHAZINE HCL 25 MG/ML 1ML IV PRN (01:30)
[2018-03-26] MEDS: HYDROcodone-ACET 5/325MG TAB PO PRN ×4 (06:05→22:10)
[2018-03-26] MEDS: MESALAMINE 400mg Delayed Release Cap PO SCH ×3 (06:05→22:10)
[2018-03-26] MEDS: LEVOTHYROXINE SODIUM 25 MCG TAB PO SCH (06:05)
[2018-03-26 06:34] LABS: Basophils # (auto) 0 uL; Basophils % (auto) 0.9 % (0.0-2.0); Eosinophils # (auto) 0 uL; Eosinophils % (auto) 1.2 % (0.0-7.0); Hematocrit 30.2 % (36.0-46.0); Hemoglobin 10.5 g/dL (12.2-16.2); Lymphocytes # (auto) 1.3 uL; Lymphocytes % (auto) 36.6 % (10.0-50.0); Mean Corpuscular Hemoglobin 30.8 pg (28.0-32.0); Mean Corpuscular Hgb Conc. 34.8 g/dL (32.0-36.0); Mean Corpuscular Volume 88.4 fL (80.0-100.0); Monocytes # (auto) 0.3 uL; Monocytes % (auto) 7.9 % (0.0-12.0); Neutrophils # (auto) 1.9 uL; Neutrophils % (auto) 53.4 % (37.0-80.0); Nucleated Red Blood Cells % 0.4 %; Platelet Count (auto) 231 10^3/uL (140-450); Red Blood Cells 3.42 10^6/uL (4.0-5.20); Red Cell Distribution Width 14.5 % (11.8-14.3); White Blood Cell 3.5 10^3/uL (4.4-10.8)
[2018-03-26 06:36] LABS: BUN/Creatinine Ratio 8.8; Calcium 7.8 mg/dL (8.5-10.1); Potassium 3.3 mmol/L (3.5-5.1)
[2018-03-26] MEDS ORDERED: clonazePAM 0.5 MG TAB PO PRN (09:15)
[2018-03-26] MEDS ORDERED: SODIUM CHLORIDE 0.9% 1,000 ML IV ONE (09:15)
[2018-03-26] MEDS: POTASSIUM CHL 20MEQ/100ML 100 ML IV SCH ×2 (10:01→12:20)
[2018-03-26] MEDS: OXcarbazepine 300 MG TAB PO SCH ×2 (10:02→22:10)
[2018-03-26] MEDS: amLODIPine BESYLATE 5 MG TAB PO SCH (10:02)
[2018-03-26] MEDS: METOPROLOL TARTRATE 50 MG TAB PO SCH ×2 (10:02→22:11)
[2018-03-26] MEDS: ENOXAPARIN SOD 40 MG/0.4 ML SYRINGE SC SCH (10:03)
[2018-03-26] MEDS: FLUoxetine HCL 20 MG CAP PO SCH (10:03)
[2018-03-26] MEDS ORDERED: OXcarbazepine 300 MG TAB PO ONE (17:45)
[2018-03-26] MEDS: TEMAZEPAM 15 MG CAP PO PRN (23:58)
[2018-03-27] VITALS (7 sets, daily range): BP systolic 112–137; BP diastolic 52–75
[2018-03-27 06:05] LABS: BUN/Creatinine Ratio 7.3; Calcium 7.6 mg/dL (8.5-10.1); Potassium 3.3 mmol/L (3.5-5.1)
[2018-03-27] MEDS: MESALAMINE 400mg Delayed Release Cap PO SCH ×3 (06:16→22:03)
[2018-03-27] MEDS: OXcarbazepine 300 MG TAB PO SCH ×3 (06:16→22:04)
[2018-03-27] MEDS: HYDROcodone-ACET 5/325MG TAB PO PRN (06:17)
[2018-03-27] MEDS: LEVOTHYROXINE SODIUM 25 MCG TAB PO SCH (06:37)
[2018-03-27] MEDS: FLUoxetine HCL 20 MG CAP PO SCH (10:09)
[2018-03-27] MEDS: ENOXAPARIN SOD 40 MG/0.4 ML SYRINGE SC SCH (10:09)
[2018-03-27] MEDS: amLODIPine BESYLATE 5 MG TAB PO SCH (10:09)
[2018-03-27] MEDS: METOPROLOL TARTRATE 50 MG TAB PO SCH ×2 (10:10→22:04)
[2018-03-27] MEDS: HYOSCYAMINE SULF 0.125 MG TAB PO PRN ×3 (12:27→22:42)
[2018-03-27] MEDS: ACETAMINOPHEN 325 MG TAB PO PRN (22:03)
[2018-03-27] MEDS: TEMAZEPAM 15 MG CAP PO PRN (22:04)
[2018-03-28] VITALS (7 sets, daily range): BP systolic 88–135; BP diastolic 41–93
[2018-03-28 05:21] LABS: Basophils # (auto) 0 uL; Basophils % (auto) 0.8 % (0.0-2.0); Eosinophils # (auto) 0.1 uL; Eosinophils % (auto) 2.1 % (0.0-7.0); Hematocrit 30.4 % (36.0-46.0); Hemoglobin 10.9 g/dL (12.2-16.2); Lymphocytes # (auto) 1.3 uL; Lymphocytes % (auto) 37.4 % (10.0-50.0); Mean Corpuscular Hemoglobin 31.4 pg (28.0-32.0); Mean Corpuscular Hgb Conc. 35.8 g/dL (32.0-36.0); Mean Corpuscular Volume 87.8 fL (80.0-100.0); Monocytes # (auto) 0.3 uL; Monocytes % (auto) 10.3 % (0.0-12.0); Neutrophils # (auto) 1.7 uL; Neutrophils % (auto) 49.4 % (37.0-80.0); Nucleated Red Blood Cells % 0.3 %; Platelet Count (auto) 234 10^3/uL (140-450); Red Blood Cells 3.46 10^6/uL (4.0-5.20); Red Cell Distribution Width 14.1 % (11.8-14.3); White Blood Cell 3.4 10^3/uL (4.4-10.8)
[2018-03-28 05:35] LABS: BUN/Creatinine Ratio 5.3; Potassium 3.2 mmol/L (3.5-5.1)
[2018-03-28] MEDS: OXcarbazepine 300 MG TAB PO SCH ×3 (06:45→22:22)
[2018-03-28] MEDS: LEVOTHYROXINE SODIUM 25 MCG TAB PO SCH (06:45)
[2018-03-28] MEDS: HYOSCYAMINE SULF 0.125 MG TAB PO PRN ×3 (06:45→20:44)
[2018-03-28] MEDS: MESALAMINE 400mg Delayed Release Cap PO SCH ×3 (06:46→22:21)
[2018-03-28] MEDS: ENOXAPARIN SOD 40 MG/0.4 ML SYRINGE SC SCH (09:39)
[2018-03-28] MEDS: FLUoxetine HCL 20 MG CAP PO SCH ×2 (09:40→09:44)
[2018-03-28] MEDS: METOPROLOL TARTRATE 50 MG TAB PO SCH ×2 (09:41→22:22)
[2018-03-28] MEDS: amLODIPine BESYLATE 5 MG TAB PO SCH (09:41)
[2018-03-28] MEDS ORDERED: FLUoxetine HCL 20 MG CAP PO ONE (10:00)
[2018-03-28] MEDS ORDERED: POTASSIUM CHL 20 Meq TABLET PO ONE (10:45)
[2018-03-28] MEDS: VANCOMYCIN HCL 125MG/5ML ORAL SOL PO SCH ×3 (13:40→22:24)
[2018-03-28] MEDS: metroNIDAZOLE 500MG/100ML 100 ML IV SCH ×2 (13:40→22:21)
[2018-03-28] MEDS: HYDROcodone-ACET 5/325MG TAB PO PRN (20:44)
[2018-03-28] MEDS: PROMETHAZINE HCL 25 MG/ML 1ML IV PRN (22:37)
[2018-03-28] MEDS: MORPHINE SULF INJ 2 MG/ML SYRINGE 1ML IV PRN (22:37)
[2018-03-28] MEDS: TEMAZEPAM 15 MG CAP PO PRN (23:33)
[2018-03-29] VITALS (7 sets, daily range): BP systolic 111–131; BP diastolic 54–69
[2018-03-29] MEDS: HYDROcodone-ACET 5/325MG TAB PO PRN (01:01)
[2018-03-29] MEDS: MORPHINE SULF INJ 2 MG/ML SYRINGE 1ML IV PRN ×2 (03:53→21:18)
[2018-03-29] MEDS: PROMETHAZINE HCL 25 MG/ML 1ML IV PRN ×2 (03:53→21:17)
[2018-03-29] MEDS: MESALAMINE 400mg Delayed Release Cap PO SCH ×3 (06:01→21:16)
[2018-03-29] MEDS: metroNIDAZOLE 500MG/100ML 100 ML IV SCH ×3 (06:02→21:16)
[2018-03-29] MEDS: LEVOTHYROXINE SODIUM 25 MCG TAB PO SCH (06:02)
[2018-03-29] MEDS: OXcarbazepine 300 MG TAB PO SCH ×3 (06:02→21:16)
[2018-03-29] MEDS: VANCOMYCIN HCL 125MG/5ML ORAL SOL PO SCH ×4 (06:04→21:17)
[2018-03-29 08:51] LABS: Basophils # (auto) 0 uL; Basophils % (auto) 1.3 % (0.0-2.0); Eosinophils # (auto) 0.1 uL; Eosinophils % (auto) 2.5 % (0.0-7.0); Hematocrit 30.7 % (36.0-46.0); Lymphocytes # (auto) 1.4 uL; Lymphocytes % (auto) 40.7 % (10.0-50.0); Mean Corpuscular Hemoglobin 31.8 pg (28.0-32.0); Mean Corpuscular Hgb Conc. 35.8 g/dL (32.0-36.0); Mean Corpuscular Volume 88.8 fL (80.0-100.0); Monocytes # (auto) 0.3 uL; Monocytes % (auto) 9.3 % (0.0-12.0); Neutrophils # (auto) 1.6 uL; Neutrophils % (auto) 46.2 % (37.0-80.0); Nucleated Red Blood Cells % 0.3 %; Platelet Count (auto) 277 10^3/uL (140-450); Red Blood Cells 3.46 10^6/uL (4.0-5.20); Red Cell Distribution Width 14.1 % (11.8-14.3); White Blood Cell 3.4 10^3/uL (4.4-10.8)
[2018-03-29 09:09] LABS: BUN/Creatinine Ratio 4.7; Calcium 8.1 mg/dL (8.5-10.1); Potassium 3.2 mmol/L (3.5-5.1)
[2018-03-29] MEDS ORDERED: LORazepam 2MG/ML-1ML VIAL IV PRN (09:30)
[2018-03-29] MEDS ORDERED: clonazePAM 0.5 MG TAB PO PRN (09:30)
[2018-03-29] MEDS: POTASSIUM CHL 20MEQ/100ML 100 ML IV SCH ×2 (09:46→13:36)
[2018-03-29] MEDS: amLODIPine BESYLATE 5 MG TAB PO SCH (09:46)
[2018-03-29] MEDS: FLUoxetine HCL 20 MG CAP PO SCH (09:46)
[2018-03-29] MEDS: ENOXAPARIN SOD 40 MG/0.4 ML SYRINGE SC SCH (09:47)
[2018-03-29] MEDS: SODIUM CHLORIDE 0.9% 1,000 ML IV SCH ×2 (09:47→22:50)
[2018-03-29] MEDS: METOPROLOL TARTRATE 50 MG TAB PO SCH ×2 (09:47→21:17)
[2018-03-29] MEDS: HYOSCYAMINE SULF 0.125 MG TAB PO PRN (14:59)
[2018-03-29] MEDS: TEMAZEPAM 15 MG CAP PO PRN (21:16)
[2018-03-30 05:00] VITALS: BP 114/62
[2018-03-30] MEDS: metroNIDAZOLE 500MG/100ML 100 ML IV SCH ×3 (06:23→22:29)
[2018-03-30] MEDS: LEVOTHYROXINE SODIUM 25 MCG TAB PO SCH (06:24)
[2018-03-30] MEDS: OXcarbazepine 300 MG TAB PO SCH ×2 (06:24→14:00)
[2018-03-30] MEDS: MESALAMINE 400mg Delayed Release Cap PO SCH ×3 (06:24→22:27)
[2018-03-30] MEDS: MORPHINE SULF INJ 2 MG/ML SYRINGE 1ML IV PRN (06:24)
[2018-03-30] MEDS: VANCOMYCIN HCL 125MG/5ML ORAL SOL PO SCH ×4 (06:25→23:40)
[2018-03-30] MEDS: PROMETHAZINE HCL 25 MG/ML 1ML IV PRN (06:25)
[2018-03-30 07:23] LABS: Basophils # (auto) 0.1 uL; Basophils % (auto) 1.1 % (0.0-2.0); Eosinophils # (auto) 0.1 uL; Eosinophils % (auto) 1.4 % (0.0-7.0); Hematocrit 32.1 % (36.0-46.0); Hemoglobin 11.5 g/dL (12.2-16.2); Lymphocytes # (auto) 1.2 uL; Lymphocytes % (auto) 25.3 % (10.0-50.0); Mean Corpuscular Hgb Conc. 35.8 g/dL (32.0-36.0); Mean Corpuscular Volume 89.5 fL (80.0-100.0); Monocytes # (auto) 0.4 uL; Monocytes % (auto) 8.1 % (0.0-12.0); Neutrophils % (auto) 64.1 % (37.0-80.0); Nucleated Red Blood Cells % 0.3 %; Platelet Count (auto) 281 10^3/uL (140-450); Red Blood Cells 3.59 10^6/uL (4.0-5.20); Red Cell Distribution Width 14.6 % (11.8-14.3); White Blood Cell 4.7 10^3/uL (4.4-10.8)
[2018-03-30 07:39] LABS: Calcium 7.9 mg/dL (8.5-10.1); Potassium 4.4 mmol/L (3.5-5.1)
[2018-03-30 08:15] VITALS: BP 111/59
[2018-03-30] MEDS: HYDROcodone-ACET 5/325MG TAB PO PRN ×3 (08:46→20:21)
[2018-03-30] MEDS: METOPROLOL TARTRATE 50 MG TAB PO SCH ×2 (09:40→22:28)
[2018-03-30] MEDS: ENOXAPARIN SOD 40 MG/0.4 ML SYRINGE SC SCH (09:41)
[2018-03-30] MEDS: amLODIPine BESYLATE 5 MG TAB PO SCH (09:41)
[2018-03-30] MEDS: FLUoxetine HCL 20 MG CAP PO SCH (09:41)
[2018-03-30 12:21] VITALS: BP 109/58
[2018-03-30] MEDS ORDERED: LOPERAMIDE HCL 2 MG CAP PO PRN (14:30)
[2018-03-30 16:51] VITALS: BP 127/74
[2018-03-30 22:00] VITALS: BP 100/62
[2018-03-30] MEDS: TEMAZEPAM 15 MG CAP PO PRN (22:28)
[2018-03-30] MEDS: ACETAMINOPHEN 325 MG TAB PO PRN (22:37)
[2018-03-31 05:00] VITALS: BP 150/81
[2018-03-31] MEDS: MESALAMINE 400mg Delayed Release Cap PO SCH ×2 (06:02→13:24)
[2018-03-31] MEDS: HYDROcodone-ACET 5/325MG TAB PO PRN (06:02)
[2018-03-31] MEDS: LEVOTHYROXINE SODIUM 25 MCG TAB PO SCH (06:02)
[2018-03-31] MEDS: metroNIDAZOLE 500MG/100ML 100 ML IV SCH ×2 (06:03→13:24)
[2018-03-31] MEDS: VANCOMYCIN HCL 125MG/5ML ORAL SOL PO SCH ×2 (06:03→12:29)
[2018-03-31 08:21] VITALS: BP 121/59
[2018-03-31] MEDS ORDERED: VANC125PO PO (09:37)
[2018-03-31] MEDS: METOPROLOL TARTRATE 50 MG TAB PO SCH (09:59)
[2018-03-31] MEDS: amLODIPine BESYLATE 5 MG TAB PO SCH (09:59)
[2018-03-31] MEDS ORDERED: OXcarbazepine 300 MG TAB PO SCH (10:00)
[2018-03-31] MEDS: FLUoxetine HCL 20 MG CAP PO SCH (10:00)
[2018-03-31] MEDS: ENOXAPARIN SOD 40 MG/0.4 ML SYRINGE SC SCH (10:01)
[2018-03-31 13:00] VITALS: BP 133/65
== END 2018-03-31 16:15 | disposition home or self-care (01) | DRG 372 ==
LOC: ER 20:40 → TELE 20:41 → TELE-CENTR 03-19 18:16 → CENTRAL 03-22 11:55
PROVIDERS: ADMIT Nurse Practitioner; ATTEND Internal Medicine
PROC: 3E0H7GC Introduction of Other Therapeutic Substance into Lower GI, Via Natural or Artificial Opening (ICD-10-PCS; principal; 2018-03-25)
DX: A04.72 Enterocolitis due to Clostridium difficile, not specified as recurrent (principal); E87.1 Hypo-osmolality and hyponatremia; N39.0 Urinary tract infection, site not specified; K50.90 Crohn's disease, unspecified, without complications; D64.9 Anemia, unspecified; E03.9 Hypothyroidism, unspecified; E78.5 Hyperlipidemia, unspecified; G20 Parkinson's disease; F32.9 Major depressive disorder, single episode, unspecified; F41.9 Anxiety disorder, unspecified; G25.0 Essential tremor; G62.9 Polyneuropathy, unspecified; G89.29 Other chronic pain; I10 Essential (primary) hypertension; I25.10 Atherosclerotic heart disease of native coronary artery without angina pectoris; M19.90 Unspecified osteoarthritis, unspecified site; K90.0 Celiac disease; F02.80 Dementia in other diseases classified elsewhere, unspecified severity, without behavioral disturbance, psychotic disturbance, mood disturbance, and anxiety; M54.5 Low back pain; R07.9 Chest pain, unspecified; Z88.5 Allergy status to narcotic agent; Z88.2 Allergy status to sulfonamides; Z79.899 Other long term (current) drug therapy; Z79.82 Long term (current) use of aspirin; Z88.8 Allergy status to other drugs, medicaments and biological substances; Z90.710 Acquired absence of both cervix and uterus; Z90.49 Acquired absence of other specified parts of digestive tract; Z68.24 Body mass index [BMI] 24.0-24.9, adult
CPT/HCPCS: 36415; 70450; 71045; 71275; 74176; 80048; 80053; 81001; 82962; 83735; 83880; 84132; 84295; 84484; 85025; 85379; 85610; 85730; 87493; 93005; 95819; 96374; 96375; 97110; 97116; 97530; J0696; J3480; J3490

== ENCOUNTER → 2018-10-05 | Outpatient (CLI) | payer OTHER ==
[~2018-10-05] MED LIST changes: -AMLO10TA2 PO; -ASPI81TA27 PO; -CALC600T10 OR; -CIPR-173 PO; -CLON0.5T PO; -CYAN500T25 PO; -EST0625T PO; -FLUO40CA PO; -FLUT250A IN; -LACT10CA2 OR; -LANS15CA21 PO; -LOP2C PO; -MELO-61 PO; -MES400T PO; -METO-158 PO; -MULTTAB OR; -NOR10T PO; -OXCA150T3 PO; -OXCA600T3 PO; -POTATAB17 PO; -PRA1C PO; -TRAZ150T79 PO; +VANC125PO PO; -[UNRECOGNIZED DRUG - CODE] OR
[2018-10-05 10:27] LABS: Basophils # (auto) 0.1 uL; Basophils % (auto) 1.2 % (0.0-2.0); Eosinophils # (auto) 0.1 uL; Eosinophils % (auto) 2.9 % (0.0-7.0); Hemoglobin 12.5 g/dL (12.2-16.2); Lymphocytes # (auto) 1.2 uL; Lymphocytes % (auto) 25.7 % (10.0-50.0); Mean Corpuscular Hemoglobin 30.5 pg (28.0-32.0); Mean Corpuscular Hgb Conc. 33.8 g/dL (32.0-36.0); Mean Corpuscular Volume 90.2 fL (80.0-100.0); Monocytes # (auto) 0.3 uL; Monocytes % (auto) 5.5 % (0.0-12.0); Neutrophils % (auto) 64.7 % (37.0-80.0); Nucleated Red Blood Cells % 0.2 %; Platelet Count (auto) 156 10^3/uL (140-450); Red Cell Distribution Width 14.4 % (11.8-14.3); White Blood Cell 4.6 10^3/uL (4.4-10.8)
[2018-10-05 10:30] LABS: Urine Bacteria FEW /hpf (None Seen); Urine Blood Negative /uL (Negative); Urine Hyaline Cast FEW /lpf (0 - 2); Urine Mucus FEW (None Seen); Urine Specific Gravity 1.026 (1.001-1.035); Urine WBC 28 /hpf (0 - 5)
[2018-10-05 10:56] LABS: Albumin 3.5 g/dL (3.4-5.0); BUN/Creatinine Ratio 16.9; Potassium 4.2 mmol/L (3.5-5.1)
[2018-10-05 11:01] LABS: Bilirubin, Total 0.4 mg/dL (0.2-1.0); Total Protein 6.7 g/dL (6.4-8.2)
== END | disposition home or self-care (01) ==
LOC: LAB 09:56
PROVIDERS: ATTEND Family Medicine
DX: I10 Essential (primary) hypertension (principal); E78.49 Other hyperlipidemia; M54.5 Low back pain; R25.1 Tremor, unspecified; F33.1 Major depressive disorder, recurrent, moderate
CPT/HCPCS: 36415; 80053; 80061; 81001; 82306; 82607; 84443; 85025

== ENCOUNTER 2019-01-12 05:08 | Emergency (ER) | payer OTHER ==
[~2019-01-12] VITALS: Ht 152.4 cm; Wt 54.9 kg
[2019-01-12] MEDS ORDERED: MORPHINE SULFATE 4 MG/ML SYR/VIAL IV ONE (05:20)
[2019-01-12] MEDS ORDERED: ONDANSETRON HCL 4 MG/2 ML VIAL IV ONE (05:20)
[2019-01-12] MEDS ORDERED: ASPirin 325 MG TAB ONE (05:31)
[2019-01-12] MEDS ORDERED: MORPHINE SULFATE 4 MG/ML SYR/VIAL ONE (05:31)
[2019-01-12] MEDS ORDERED: ONDANSETRON HCL 4 MG/2 ML VIAL ONE (05:31)
[2019-01-12] MEDS ORDERED: SODIUM CHLORIDE 0.9% 1,000 ML IV ONE (06:47)
[2019-01-12 06:52] LABS: Basophils # (auto) 0.1 uL; Basophils % (auto) 0.6 % (0.0-2.0); Eosinophils # (auto) 0.1 uL; Eosinophils % (auto) 0.8 % (0.0-7.0); Hematocrit 37.1 % (36.0-46.0); Hemoglobin 12.9 g/dL (12.2-16.2); Lymphocytes # (auto) 1.5 uL; Mean Corpuscular Hgb Conc. 34.8 g/dL (32.0-36.0); Mean Corpuscular Volume 89.1 fL (80.0-100.0); Monocytes # (auto) 0.6 uL; Monocytes % (auto) 6.6 % (0.0-12.0); Neutrophils # (auto) 7.3 uL; Nucleated Red Blood Cells % 0.1 %; Platelet Count (auto) 200 10^3/uL (140-450); Red Blood Cells 4.16 10^6/uL (4.0-5.20); White Blood Cell 9.5 10^3/uL (4.4-10.8)
[2019-01-12] MEDS ORDERED: METOCLOPRAMIDE HCL 5MG/ml INJ 2ml VIAL IV ONE (07:00)
[2019-01-12] MEDS ORDERED: KETOROLAC TROMETH 30 MG/ML 1ML VIAL IV ONE (07:00)
[2019-01-12] MEDS ORDERED: ALUM & MAG HYDROX-SIMETH LIQ(MAALOX) 30 ML PO ONE (07:00)
[2019-01-12] MEDS ORDERED: FAMOTIDINE 20 MG TAB PO ONE (07:00)
[2019-01-12] MEDS ORDERED: DONNATAL 5ml ORAL Elix (BELLADONNA ALK-PHENOBARB) PO ONE (07:00)
[2019-01-12 07:10] LABS: Magnesium 1.9 mg/dL (1.6-2.6)
[2019-01-12 07:11] LABS: Albumin 3.9 g/dL (3.4-5.0); BUN/Creatinine Ratio 21.3; Calcium 8.8 mg/dL (8.5-10.1); Potassium 3.9 mmol/L (3.5-5.1)
[2019-01-12 07:13] LABS: Bilirubin, Total 0.7 mg/dL (0.2-1.0); Total Protein 6.8 g/dL (6.4-8.2)
[2019-01-12 07:27] LABS: INR < 0.93 (0.9-1.15); Partial Thromboplastin Time 22.8 sec (23.64-32.05)
[2019-01-12] MEDS ORDERED: KETOROLAC TROMETH 60MG/2ML VIAL ONE (07:32)
[2019-01-12] MEDS ORDERED: IOHEXOL 350 MG/ML 100ML IJ ONE (09:33)
[2019-01-12 10:34] VITALS: BP 96/55
[2019-01-12 12:40] LABS: Urine Bacteria MANY /hpf (None Seen); Urine Blood Negative /uL (Negative); Urine Mucus FEW (None Seen); Urine Specific Gravity 1.047 (1.001-1.035); Urine WBC 4 /hpf (0 - 5)
== END 2019-01-12 10:42 | disposition home or self-care (01) ==
LOC: ER 06:07
DX: M94.0 Chondrocostal junction syndrome [Tietze] (principal); I12.9 Hypertensive chronic kidney disease with stage 1 through stage 4 chronic kidney disease, or unspecified chronic kidney disease; N18.3 Chronic kidney disease, stage 3 (moderate); E03.9 Hypothyroidism, unspecified; I48.2 Chronic atrial fibrillation; N39.0 Urinary tract infection, site not specified; E78.5 Hyperlipidemia, unspecified; Z79.82 Long term (current) use of aspirin; Z79.899 Other long term (current) drug therapy; Z88.5 Allergy status to narcotic agent; Z88.8 Allergy status to other drugs, medicaments and biological substances; Z88.2 Allergy status to sulfonamides; Z91.011 Allergy to milk products
CPT/HCPCS: 36415; 71045; 71275; 80053; 81001; 83690; 83735; 84443; 84484; 85025; 85379; 85610; 85730; 93005; 94761; 96374; 96375; 99284; J1885; J2270; J2405; J2765; J7030; Q9967

== ENCOUNTER → 2019-03-22 | Outpatient (CLI) | payer OTHER ==
[2019-03-22 10:40] LABS: Urine Bacteria FEW /hpf (None Seen); Urine Blood Negative /uL (Negative); Urine Specific Gravity 1.026 (1.001-1.035); Urine WBC 41 /hpf (0 - 5)
== END | disposition home or self-care (01) ==
LOC: LAB 10:11
PROVIDERS: ATTEND Internal Medicine Nephrology
DX: N39.0 Urinary tract infection, site not specified (principal); I12.9 Hypertensive chronic kidney disease with stage 1 through stage 4 chronic kidney disease, or unspecified chronic kidney disease; N18.3 Chronic kidney disease, stage 3 (moderate)
CPT/HCPCS: 81001

== ENCOUNTER → 2019-04-19 | Outpatient (CLI) | payer OTHER ==
[2019-04-19 11:15] LABS: Basophils # (auto) 0.1 uL; Basophils % (auto) 2.3 % (0.0-2.0); Eosinophils # (auto) 0 uL; Eosinophils % (auto) 0.1 % (0.0-7.0); Hematocrit 35.4 % (36.0-46.0); Hemoglobin 12.1 g/dL (12.2-16.2); Lymphocytes # (auto) 0.8 uL; Lymphocytes % (auto) 18.3 % (10.0-50.0); Mean Corpuscular Hemoglobin 30.5 pg (28.0-32.0); Mean Corpuscular Hgb Conc. 34.1 g/dL (32.0-36.0); Mean Corpuscular Volume 89.4 fL (80.0-100.0); Monocytes # (auto) 0.3 uL; Neutrophils % (auto) 71.3 % (37.0-80.0); Nucleated Red Blood Cells % 0.4 %; Platelet Count (auto) 171 10^3/uL (140-450); Red Blood Cells 3.96 10^6/uL (4.0-5.20); Red Cell Distribution Width 14.6 % (11.8-14.3); White Blood Cell 4.2 10^3/uL (4.4-10.8)
[2019-04-19 11:17] LABS: Albumin 3.5 g/dL (3.4-5.0); Potassium 4.2 mmol/L (3.5-5.1)
[2019-04-19 11:30] LABS: BUN/Creatinine Ratio 13.1; Bilirubin, Total 0.5 mg/dL (0.2-1.0); Calcium 8.9 mg/dL (8.5-10.1); Total Protein 6.7 g/dL (6.4-8.2)
== END | disposition home or self-care (01) ==
LOC: LAB 10:19
PROVIDERS: ATTEND Internal Medicine Nephrology
DX: I12.0 Hypertensive chronic kidney disease with stage 5 chronic kidney disease or end stage renal disease (principal); N18.6 End stage renal disease
CPT/HCPCS: 36415; 80053; 80061; 84439; 84443; 85025

== ENCOUNTER 2019-09-08 05:01 | Emergency (ER) | payer OTHER ==
[~2019-09-08] VITALS: Ht 152.4 cm; Wt 59.0 kg
[2019-09-08 07:02] LABS: Basophils # (auto) 0 uL; Basophils % (auto) 0.9 % (0.0-2.0); Eosinophils # (auto) 0 uL; Hematocrit 39.2 % (36.0-46.0); Hemoglobin 13.5 g/dL (12.2-16.2); Lymphocytes # (auto) 0.8 uL; Lymphocytes % (auto) 15.9 % (10.0-50.0); Mean Corpuscular Hemoglobin 30.5 pg (28.0-32.0); Mean Corpuscular Hgb Conc. 34.5 g/dL (32.0-36.0); Mean Corpuscular Volume 88.3 fL (80.0-100.0); Monocytes # (auto) 0.5 uL; Monocytes % (auto) 10.9 % (0.0-12.0); Neutrophils # (auto) 3.4 uL; Neutrophils % (auto) 72.3 % (37.0-80.0); Nucleated Red Blood Cells % 0.3 %; Platelet Count (auto) 138 10^3/uL (140-450); Red Blood Cells 4.44 10^6/uL (4.0-5.20); Red Cell Distribution Width 14.5 % (11.8-14.3); White Blood Cell 4.7 10^3/uL (4.4-10.8)
[2019-09-08 07:19] LABS: Albumin 3.8 g/dL (3.4-5.0); Calcium 8.5 mg/dL (8.5-10.1); Potassium 3.7 mmol/L (3.5-5.1)
[2019-09-08 07:23] LABS: BUN/Creatinine Ratio 14.8; Bilirubin, Total 0.5 mg/dL (0.2-1.0); Total Protein 7.6 g/dL (6.4-8.2)
[2019-09-08 11:39] VITALS: BP 136/64
== END 2019-09-08 12:08 | disposition home or self-care (01) ==
LOC: ER 05:01
DX: R55 Syncope and collapse (principal); I10 Essential (primary) hypertension; I11.0 Hypertensive heart disease with heart failure; I50.9 Heart failure, unspecified; E78.5 Hyperlipidemia, unspecified; Z97.10 Presence of artificial limb (complete) (partial), unspecified; Z90.89 Acquired absence of other organs
CPT/HCPCS: 36415; 70450; 71045; 72192; 80053; 85025; 93005

== ENCOUNTER → 2019-10-07 | Outpatient (CLI) | payer OTHER | END | disposition home or self-care (01) | LOC: XYW 09:17 | PROVIDERS: ATTEND Internal Medicine | DX: I35.1 Nonrheumatic aortic (valve) insufficiency (principal); R00.1 Bradycardia, unspecified; R07.9 Chest pain, unspecified | CPT/HCPCS: 93306 ==

== ENCOUNTER 2020-04-19 06:07 | Inpatient (IN) | payer OTHER ==
[~2020-04-19] VITALS: Ht 154.9 cm; Wt 70.0 kg
[2020-04-19 07:20] LABS: INR 0.97 (0.9-1.15); Partial Thromboplastin Time 23.7 sec (23.0-31.2)
[2020-04-19 07:25] LABS: Basophils # (auto) 0.1 10 ^3/uL (0-0.2); Basophils % (auto) 0.6 % (0.0-2.0); Eosinophils # (auto) 0 10 ^3/uL (0-0.8); Hematocrit 41.9 % (36.0-46.0); Hemoglobin 13.8 g/dL (12.2-16.2); Lymphocytes # (auto) 1.3 10 ^3/uL (0.4-5.4); Lymphocytes % (auto) 15.1 % (10.0-50.0); Mean Corpuscular Hemoglobin 29.3 pg (28.0-32.0); Mean Corpuscular Hgb Conc. 32.9 g/dL (32.0-36.0); Mean Corpuscular Volume 89.2 fL (80.0-100.0); Monocytes # (auto) 0.5 10 ^3/uL (0-1.3); Monocytes % (auto) 5.7 % (0.0-12.0); Neutrophils % (auto) 78.6 % (37.0-80.0); Nucleated Red Blood Cells % 1.5 %; Platelet Count (auto) 207 10^3/uL (140-450); Red Cell Distribution Width 14.5 % (11.8-14.3); White Blood Cell 8.9 10^3/uL (4.4-10.8)
[2020-04-19 07:44] LABS: Calcium 9.1 mg/dL (8.5-10.1)
[2020-04-19 07:47] LABS: Magnesium 1.7 mg/dL (1.6-2.6)
[2020-04-19 08:02] LABS: BUN/Creatinine Ratio 12.4
[2020-04-19 08:03] LABS: Bilirubin, Total 0.8 mg/dL (0.2-1.0); Potassium 2.9 mmol/L (3.5-5.1); Total Protein 7.1 g/dL (6.4-8.2)
[2020-04-19] MEDS ORDERED: POTASSIUM EFFERVESENT TAB 25 MEQ PO ONE (09:15)
[2020-04-19] MEDS ORDERED: ENOXAPARIN SOD 80 MG/0.8ML SYRINGE SC ONE (09:15)
[2020-04-19] MEDS ORDERED: ONDANSETRON HCL 4 MG/2 ML VIAL IV ONE (09:15)
[2020-04-19] MEDS ORDERED: ASPirin 81 mg TAB PO ONE (09:15)
[2020-04-19] MEDS ORDERED: NITROGLYCERIN 0.4 MG SL TAB SL PRN (10:00)
[2020-04-19] MEDS: MORPHINE SULF INJ 2 MG/ML SYRINGE 1ML IV PRN ×3 (10:42→21:28)
[2020-04-19 10:59] LABS: Amylase 57 U/L (25-115); Lipase 82 U/L (73-393)
[2020-04-19] MEDS ORDERED: PRA1C PO (10:59)
[2020-04-19] MEDS ORDERED: OXCA600T3 PO (10:59)
[2020-04-19] MEDS ORDERED: DICY10CA12 PO (10:59)
[2020-04-19] MEDS ORDERED: TRAM-297 PO (10:59)
[2020-04-19 11:13] LABS: Albumin 3.4 g/dL (3.4-5.0)
[2020-04-19] MEDS ORDERED: MORPHINE SULF INJ 2 MG/ML SYRINGE 1ML IV PRN (11:15)
[2020-04-19] MEDS ORDERED: LACTULOSE 20Gm/30ML SOLN PO PRN (11:15)
[2020-04-19] MEDS ORDERED: ACETAMINOPHEN 500 MG TAB PO PRN (11:15)
[2020-04-19] MEDS ORDERED: CLOPIDOGREL 300 MG TAB PO ONE (12:45)
[2020-04-19] MEDS ORDERED: POTASSIUM EFFERVESENT TAB 25 MEQ GT ONE (12:45)
[2020-04-19] MEDS ORDERED: MAGNESIUM SULFATE 1GM/100ML 100 ML IV ONE (12:45)
[2020-04-19] MEDS: SODIUM CHLOR 0.9% PF (SALINE LOCK) 10ML VIAL/SYR IV SCH ×2 (14:08→22:20)
[2020-04-19] MEDS: ONDANSETRON HCL 4 MG/2 ML VIAL IV PRN (21:28)
[2020-04-19] MEDS: ENOXAPARIN SOD 60 MG/0.6 ML SYRINGE SC SCH (22:20)
[2020-04-19] MEDS: FAMOTIDINE 20 MG TAB PO SCH (22:20)
[2020-04-19] MEDS: ATORVASTATIN 20 MG TAB PO SCH (22:20)
[2020-04-20 02:33] LABS: Urine Amorphous Crystal MOD /hpf (None Seen); Urine Bacteria FEW /hpf (None Seen); Urine Blood Negative /uL (Negative); Urine Specific Gravity 1.009 (1.001-1.035); Urine WBC 87 /hpf (0 - 5)
[2020-04-20] MEDS: ONDANSETRON HCL 4 MG/2 ML VIAL IV PRN (05:49)
[2020-04-20] MEDS: SODIUM CHLOR 0.9% PF (SALINE LOCK) 10ML VIAL/SYR IV SCH ×3 (05:50→17:10)
[2020-04-20 08:26] LABS: Basophils # (auto) 0 10 ^3/uL (0-0.2); Basophils % (auto) 0.9 % (0.0-2.0); Eosinophils # (auto) 0 10 ^3/uL (0-0.8); Hematocrit 36.4 % (36.0-46.0); Hemoglobin 12.4 g/dL (12.2-16.2); Lymphocytes # (auto) 1.2 10 ^3/uL (0.4-5.4); Lymphocytes % (auto) 23.5 % (10.0-50.0); Mean Corpuscular Hemoglobin 30.3 pg (28.0-32.0); Mean Corpuscular Hgb Conc. 34.1 g/dL (32.0-36.0); Mean Corpuscular Volume 88.7 fL (80.0-100.0); Monocytes # (auto) 0.4 10 ^3/uL (0-1.3); Neutrophils # (auto) 3.6 10 ^3/uL (1.6-8.6); Neutrophils % (auto) 68.6 % (37.0-80.0); Nucleated Red Blood Cells % 0.1 %; Platelet Count (auto) 175 10^3/uL (140-450); Red Blood Cells 4.11 10^6/uL (4.0-5.20); Red Cell Distribution Width 14.2 % (11.8-14.3); White Blood Cell 5.2 10^3/uL (4.4-10.8)
[2020-04-20 08:45] LABS: Calcium 8.5 mg/dL (8.5-10.1); Potassium 3.6 mmol/L (3.5-5.1)
[2020-04-20 08:47] LABS: BUN/Creatinine Ratio 15.7
[2020-04-20] MEDS ORDERED: fentaNYL CITRATE 100 MCG/2 ML VL ONE (08:54)
[2020-04-20] MEDS ORDERED: HEPARIN SODIUM (PORCINE) 5000 UNITS/ML 1ML VIAL ONE (08:54)
[2020-04-20] MEDS ORDERED: MIDAZOLAM HCL 1MG/1ML-2 ML VIAL ONE (08:54)
[2020-04-20] MEDS ORDERED: ANGIOMAX 250 MG VIAL IV ONE (08:54)
[2020-04-20] MEDS ORDERED: VERAPAMIL 2.5MG/ML INJ 2ML VIAL IV ONE (08:54)
[2020-04-20] MEDS ORDERED: SODIUM CHL 0.9% 0 ML ONE (08:55)
[2020-04-20] MEDS ORDERED: LIDOCAINE 2%HCL (LOCAL ANESTH.) INJ 20ML MDV ONE (08:55)
[2020-04-20 08:58] LABS: INR 0.98 (0.9-1.15); Partial Thromboplastin Time 27.9 sec (23.0-31.2)
[2020-04-20] MEDS: ENOXAPARIN SOD 60 MG/0.6 ML SYRINGE SC SCH (10:00)
[2020-04-20] MEDS: FAMOTIDINE 20 MG TAB PO SCH (10:00)
[2020-04-20] MEDS ORDERED: CEFTRIAXONE SODIUM 2 GM in D5W 5% 50 ML IV ONE (10:30)
[2020-04-20] MEDS ORDERED: amLODIPine BESYLATE 5 MG TAB PO ONE (11:00)
[2020-04-20 13:00] VITALS: BP 138/57
[2020-04-20] MEDS ORDERED: POTASSIUM CHL 20 Meq TABLET PO ONE (14:15)
[2020-04-20] MEDS ORDERED: PRA1C PO (14:36)
[2020-04-20] MEDS ORDERED: MET50T GT (14:36)
[2020-04-20] MEDS: ASPirin 81 mg TAB PO SCH (15:05)
[2020-04-20] MEDS: NITROGLYCERIN 0.2MG/HR TOPICAL PATCH TD SCH (15:45)
[2020-04-20 17:00] VITALS: BP 161/87
[2020-04-20] MEDS: SUCRALFATE 1 GM/10 ML ORAL SUSP PO SCH (18:57)
[2020-04-20 22:00] VITALS: BP 119/93
[2020-04-20] MEDS: MAGNESIUM OXIDE 400 MG TAB PO SCH (22:19)
[2020-04-20] MEDS: ATORVASTATIN 20 MG TAB PO SCH (22:19)
[2020-04-20] MEDS: LORazepam 0.5 MG TAB PO PRN (22:30)
[2020-04-21] MEDS: traMADol HCL 50 MG TAB PO PRN (04:19)
[2020-04-21 05:00] VITALS: BP 119/73
[2020-04-21] MEDS: SUCRALFATE 1 GM/10 ML ORAL SUSP PO SCH ×2 (06:52→18:54)
[2020-04-21] MEDS: SODIUM CHLOR 0.9% PF (SALINE LOCK) 10ML VIAL/SYR IV SCH ×3 (06:52→22:29)
[2020-04-21 09:24] VITALS: BP 135/99
[2020-04-21] MEDS ORDERED: FAMOTIDINE 20 MG TAB PO SCH (10:00)
[2020-04-21] MEDS ORDERED: amLODIPine BESYLATE 5 MG TAB PO SCH (10:00)
[2020-04-21] MEDS: MAGNESIUM OXIDE 400 MG TAB PO SCH ×2 (11:10→22:29)
[2020-04-21] MEDS: ASPirin 81 mg TAB PO SCH (11:10)
[2020-04-21] MEDS: cefTRIAXone 1GM/50ML D5W 50 ML IV SCH (11:10)
[2020-04-21] MEDS: ENOXAPARIN SOD 40 MG/0.4 ML SYRINGE SC SCH (11:11)
[2020-04-21] MEDS: NITROGLYCERIN 0.2MG/HR TOPICAL PATCH TD SCH (11:12)
[2020-04-21] MEDS: SODIUM CHLORIDE 0.9% 1,000 ML IV SCH ×2 (11:12→22:29)
[2020-04-21 13:00] VITALS: BP 106/55
[2020-04-21] MEDS ORDERED: LORazepam 2MG/ML-1ML VIAL ONE (16:04)
[2020-04-21 16:40] VITALS: BP 138/81
[2020-04-21 21:45] VITALS: BP 124/88
[2020-04-21] MEDS: ATORVASTATIN 20 MG TAB PO SCH (22:29)
[2020-04-21] MEDS: FLORASTOR (S. BOULARDII) 250 MG CAP PO SCH (22:29)
[2020-04-22] VITALS (7 sets, daily range): BP systolic 126–150; BP diastolic 70–79
[2020-04-22] MEDS: traMADol HCL 50 MG TAB PO PRN ×3 (04:40→20:55)
[2020-04-22] MEDS: SODIUM CHLOR 0.9% PF (SALINE LOCK) 10ML VIAL/SYR IV SCH ×3 (06:34→22:26)
[2020-04-22] MEDS: SUCRALFATE 1 GM/10 ML ORAL SUSP PO SCH ×2 (06:34→19:48)
[2020-04-22] MEDS: PANTOPRAZOLE 40 MG/10 ML VIAL INJ IV SCH (09:04)
[2020-04-22] MEDS: cefTRIAXone 1GM/50ML D5W 50 ML IV SCH (09:04)
[2020-04-22] MEDS: FLORASTOR (S. BOULARDII) 250 MG CAP PO SCH ×2 (09:05→22:27)
[2020-04-22] MEDS: MAGNESIUM OXIDE 400 MG TAB PO SCH ×2 (09:05→22:27)
[2020-04-22] MEDS: ASPirin 81 mg TAB PO SCH (09:05)
[2020-04-22] MEDS: ENOXAPARIN SOD 40 MG/0.4 ML SYRINGE SC SCH (09:05)
[2020-04-22] MEDS: NITROGLYCERIN 0.2MG/HR TOPICAL PATCH TD SCH (09:06)
[2020-04-22 09:14] LABS: Basophils # (auto) 0 10 ^3/uL (0-0.2); Basophils % (auto) 0.5 % (0.0-2.0); Eosinophils # (auto) 0 10 ^3/uL (0-0.8); Hematocrit 37.3 % (36.0-46.0); Hemoglobin 12.5 g/dL (12.2-16.2); Lymphocytes # (auto) 1.2 10 ^3/uL (0.4-5.4); Lymphocytes % (auto) 18.7 % (10.0-50.0); Mean Corpuscular Hemoglobin 29.9 pg (28.0-32.0); Mean Corpuscular Hgb Conc. 33.5 g/dL (32.0-36.0); Mean Corpuscular Volume 89.2 fL (80.0-100.0); Monocytes # (auto) 0.5 10 ^3/uL (0-1.3); Monocytes % (auto) 7.6 % (0.0-12.0); Neutrophils # (auto) 4.6 10 ^3/uL (1.6-8.6); Neutrophils % (auto) 73.2 % (37.0-80.0); Nucleated Red Blood Cells % 0.2 %; Platelet Count (auto) 204 10^3/uL (140-450); Red Blood Cells 4.18 10^6/uL (4.0-5.20); Red Cell Distribution Width 13.8 % (11.8-14.3); White Blood Cell 6.3 10^3/uL (4.4-10.8)
[2020-04-22 09:49] LABS: Albumin 3.7 g/dL (3.4-5.0); Calcium 8.9 mg/dL (8.5-10.1); Magnesium 2.2 mg/dL (1.6-2.6); Potassium 4.4 mmol/L (3.5-5.1)
[2020-04-22 09:52] LABS: BUN/Creatinine Ratio 15.3; Bilirubin, Total 0.6 mg/dL (0.2-1.0); Phosphorus 2.1 mg/dL (2.5-4.90); Total Protein 6.8 g/dL (6.4-8.2)
[2020-04-22] MEDS: ONDANSETRON HCL 4 MG/2 ML VIAL IV PRN ×2 (15:17→19:47)
[2020-04-22] MEDS: LORazepam 0.5 MG TAB PO PRN ×2 (15:18→22:27)
[2020-04-22] MEDS: SODIUM CHLORIDE 0.9% 1,000 ML IV SCH (19:44)
[2020-04-22] MEDS: ATORVASTATIN 20 MG TAB PO SCH (22:27)
[2020-04-23] MEDS: SODIUM CHLORIDE 0.9% 1,000 ML IV SCH (03:06)
[2020-04-23 05:00] VITALS: BP 135/73
[2020-04-23] MEDS: SUCRALFATE 1 GM/10 ML ORAL SUSP PO SCH ×2 (05:55→19:01)
[2020-04-23] MEDS: SODIUM CHLOR 0.9% PF (SALINE LOCK) 10ML VIAL/SYR IV SCH ×3 (05:55→22:00)
[2020-04-23] MEDS: traMADol HCL 50 MG TAB PO PRN ×2 (06:21→21:29)
[2020-04-23 09:00] VITALS: BP 125/69
[2020-04-23] MEDS: PANTOPRAZOLE 40 MG/10 ML VIAL INJ IV SCH (09:32)
[2020-04-23] MEDS: FLORASTOR (S. BOULARDII) 250 MG CAP PO SCH ×2 (09:32→21:29)
[2020-04-23] MEDS: ASPirin 81 mg TAB PO SCH (09:32)
[2020-04-23] MEDS: cefTRIAXone 1GM/50ML D5W 50 ML IV SCH (09:32)
[2020-04-23] MEDS: MAGNESIUM OXIDE 400 MG TAB PO SCH ×2 (09:33→21:28)
[2020-04-23] MEDS: ENOXAPARIN SOD 40 MG/0.4 ML SYRINGE SC SCH (09:33)
[2020-04-23] MEDS ORDERED: OXcarbazepine 300 MG TAB PO ONE (11:00)
[2020-04-23] MEDS ORDERED: LEVOTHYROXINE SODIUM 100 MCG TAB PO ONE (11:00)
[2020-04-23 13:00] VITALS: BP 157/93
[2020-04-23] MEDS: NITROGLYCERIN 0.2MG/HR TOPICAL PATCH TD SCH (13:41)
[2020-04-23 17:00] VITALS: BP 138/64
[2020-04-23 20:00] VITALS: BP 166/90
[2020-04-23] MEDS: ATORVASTATIN 20 MG TAB PO SCH (21:29)
[2020-04-23 22:00] VITALS: BP 166/90
[2020-04-23] MEDS ORDERED: traZODone HCL 50 MG TAB PO SCH ×2 (22:00)
[2020-04-23] MEDS ORDERED: DONEPEZIL HYDROCHLORIDE 5 MG TAB PO SCH (22:00)
[2020-04-23] MEDS ORDERED: OXcarbazepine 300 MG TAB PO SCH (22:00)
[2020-04-24 05:00] VITALS: BP 140/77
[2020-04-24] MEDS: SODIUM CHLOR 0.9% PF (SALINE LOCK) 10ML VIAL/SYR IV SCH ×2 (06:00→13:55)
[2020-04-24] MEDS: SUCRALFATE 1 GM/10 ML ORAL SUSP PO SCH (06:16)
[2020-04-24] MEDS ORDERED: LEVOTHYROXINE SODIUM 100 MCG TAB PO SCH (07:00)
[2020-04-24 09:00] VITALS: BP 147/79
[2020-04-24] MEDS: cefTRIAXone 1GM/50ML D5W 50 ML IV SCH (09:00)
[2020-04-24] MEDS: FLORASTOR (S. BOULARDII) 250 MG CAP PO SCH (09:30)
[2020-04-24] MEDS: NITROGLYCERIN 0.2MG/HR TOPICAL PATCH TD SCH (09:30)
[2020-04-24] MEDS: ENOXAPARIN SOD 40 MG/0.4 ML SYRINGE SC SCH (09:30)
[2020-04-24] MEDS: ASPirin 81 mg TAB PO SCH (09:30)
[2020-04-24] MEDS: MAGNESIUM OXIDE 400 MG TAB PO SCH (09:30)
[2020-04-24] MEDS: traMADol HCL 50 MG TAB PO PRN ×2 (09:44→13:56)
[2020-04-24] MEDS ORDERED: OXcarbazepine 300 MG TAB PO SCH (10:00)
[2020-04-24] MEDS: PANTOPRAZOLE 40 MG/10 ML VIAL INJ IV SCH (10:00)
[2020-04-24] MEDS ORDERED: FLUoxetine HCL 20 MG CAP PO SCH (10:00)
[2020-04-24] MEDS ORDERED: DONE5TAB31 PO (12:31)
[2020-04-24 13:09] VITALS: BP 108/70
[2020-04-24 14:51] VITALS: BP 147/79
[2020-04-24 15:50] VITALS: BP 138/80
== END 2020-04-24 16:26 | disposition home or self-care (01) | DRG 281 ==
LOC: ER 06:07 → OVERFLOW 06:08 → TELE-CENTR 04-20 10:50
PROVIDERS: ADMIT Internal Medicine; ATTEND Internal Medicine Nephrology
PROC: 4A023N7 Measurement of Cardiac Sampling and Pressure, Left Heart, Percutaneous Approach (ICD-10-PCS; principal; 2020-04-20)
PROC: B2111ZZ Fluoroscopy of Multiple Coronary Arteries using Low Osmolar Contrast (ICD-10-PCS; 2020-04-20)
PROC: B2151ZZ Fluoroscopy of Left Heart using Low Osmolar Contrast (ICD-10-PCS; 2020-04-20)
DX: I21.A1 Myocardial infarction type 2 (principal); G93.40 Encephalopathy, unspecified; N39.0 Urinary tract infection, site not specified; I11.0 Hypertensive heart disease with heart failure; E03.9 Hypothyroidism, unspecified; E78.5 Hyperlipidemia, unspecified; E87.6 Hypokalemia; F02.80 Dementia in other diseases classified elsewhere, unspecified severity, without behavioral disturbance, psychotic disturbance, mood disturbance, and anxiety; H57.02 Anisocoria; I50.9 Heart failure, unspecified; I95.1 Orthostatic hypotension; K90.0 Celiac disease; Z79.899 Other long term (current) drug therapy; I25.2 Old myocardial infarction; Z82.49 Family history of ischemic heart disease and other diseases of the circulatory system; Z86.73 Personal history of transient ischemic attack (TIA), and cerebral infarction without residual deficits; Z90.710 Acquired absence of both cervix and uterus
CPT/HCPCS: 36415; 36600; 70450; 71045; 80048; 80053; 81001; 82150; 82533; 82805; 82962; 83690; 83735; 83880; 84100; 84443; 84484; 85025; 85379; 85610; 85730; 87040; 87086; 87426; 93005; 93306; 93886; 93970; 95819; 99152; 99153; 99291; C9113; G0378; J0696; J2250; J2405; J7060

== ENCOUNTER 2021-01-17 15:27 | Inpatient (IN) | payer OTHER ==
[~2021-01-17] VITALS: Ht 152.4 cm; Wt 63.8 kg
[~2021-01-17 15:27] MED LIST changes: +DICY10CA12 PO; -DICY10CA55 PO; +DONE5TAB80 PO; +LEV75T PO; -LEVO75TA50 PO; +MET50T GT; -METO-462 PO; +OXCA600T3 PO; +PRA1C PO; +SIMV40TA2 PO; -SIMV40TA96 PO; +TRAM-297 PO; -TRAM50TA2 PO
[2021-01-17] MEDS ORDERED: MORPHINE SULFATE 4 MG/ML SYR/VIAL IV ONE (16:00)
[2021-01-17] MEDS ORDERED: ONDANSETRON HCL 4 MG/2 ML VIAL IV ONE (16:00)
[2021-01-17] MEDS ORDERED: SODIUM CHLORIDE 0.9% 500 ML IVB ONE (16:00)
[2021-01-17 16:18] LABS: Basophils # (auto) 0.1 10 ^3/uL (0-0.2); Basophils % (auto) 1.3 % (0.0-2.0); Eosinophils # (auto) 0 10 ^3/uL (0-0.8); Hematocrit 37.5 % (36.0-46.0); Hemoglobin 13.3 g/dL (12.2-16.2); Lymphocytes # (auto) 1.4 10 ^3/uL (0.4-5.4); Lymphocytes % (auto) 22.5 % (10.0-50.0); Mean Corpuscular Hemoglobin 30.8 pg (28.0-32.0); Mean Corpuscular Hgb Conc. 35.4 g/dL (32.0-36.0); Mean Corpuscular Volume 86.8 fL (80.0-100.0); Monocytes # (auto) 0.4 10 ^3/uL (0-1.3); Monocytes % (auto) 6.2 % (0.0-12.0); Neutrophils # (auto) 4.2 10 ^3/uL (1.6-8.6); Nucleated Red Blood Cells % 0.2 %; Platelet Count (auto) 202 10^3/uL (140-450); Red Blood Cells 4.32 10^6/uL (4.0-5.20); Red Cell Distribution Width 14.8 % (11.8-14.3)
[2021-01-17 16:34] LABS: Potassium 4.2 mmol/L (3.5-5.1)
[2021-01-17 16:40] LABS: Albumin 3.8 g/dL (3.4-5.0); BUN/Creatinine Ratio 26.7; Bilirubin, Total 0.5 mg/dL (0.2-1.0); Calcium 8.7 mg/dL (8.5-10.1); Total Protein 7.3 g/dL (6.4-8.2)
[2021-01-17 18:36] LABS: Urine Bacteria MOD /hpf (None Seen); Urine Blood Negative /uL (Negative); Urine Specific Gravity 1.023 (1.001-1.035); Urine WBC 63 /hpf (0 - 5)
[2021-01-17] MEDS ORDERED: cefTRIAXone 1GM/50ML D5W 50 ML IV ONE (18:45)
[2021-01-18] VITALS (8 sets, daily range): BP systolic 139–156; BP diastolic 60–74
[2021-01-18] MEDS ORDERED: ONDANSETRON HCL 4 MG/2 ML VIAL IV PRN (01:45)
[2021-01-18] MEDS ORDERED: MORPHINE SULFATE 4 MG/ML SYR/VIAL IV PRN (01:45)
[2021-01-18] MEDS ORDERED: ACETAMINOPHEN 325 MG TAB PO PRN (01:45)
[2021-01-18] MEDS ORDERED: MORPHINE SULF INJ 2 MG/ML SYRINGE 1ML IV PRN (01:45)
[2021-01-18] MEDS ORDERED: NITROGLYCERIN 0.4 MG SL TAB SL PRN (01:45)
[2021-01-18] MEDS ORDERED: DOCUSATE SOD 100 MG CAP PO PRN (01:45)
[2021-01-18] MEDS ORDERED: hydrALAZINE HCL 20 MG/ML VL IV PRN (02:00)
[2021-01-18] MEDS: HYDROcodone-ACET 5/325MG TAB PO PRN ×3 (04:16→22:47)
[2021-01-18] MEDS: SODIUM CHLOR 0.9% PF (SALINE LOCK) 10ML VIAL/SYR IV SCH ×3 (06:17→22:46)
[2021-01-18] MEDS: MULTIPLE VITAMIN TAB PO SCH (09:32)
[2021-01-18] MEDS: ZINC SULFATE 220mg CAP or TAB PO SCH (09:33)
[2021-01-18] MEDS: FAMOTIDINE 20 MG TAB PO SCH (09:33)
[2021-01-18] MEDS: ASCORBIC ACID 500 MG TAB PO SCH ×2 (09:33→22:47)
[2021-01-18] MEDS: ENOXAPARIN SOD 40 MG/0.4 ML SYRINGE SC SCH (09:34)
[2021-01-18] MEDS: cefTRIAXone 1GM/50ML D5W 50 ML IV SCH (09:34)
[2021-01-18 10:39] LABS: Basophils # (auto) 0.1 10 ^3/uL (0-0.2); Basophils % (auto) 1.2 % (0.0-2.0); Eosinophils # (auto) 0 10 ^3/uL (0-0.8); Eosinophils % (auto) 0.2 % (0.0-7.0); Hematocrit 36.1 % (36.0-46.0); Hemoglobin 12.6 g/dL (12.2-16.2); Lymphocytes # (auto) 1.2 10 ^3/uL (0.4-5.4); Lymphocytes % (auto) 24.4 % (10.0-50.0); Mean Corpuscular Hemoglobin 30.4 pg (28.0-32.0); Mean Corpuscular Hgb Conc. 34.9 g/dL (32.0-36.0); Mean Corpuscular Volume 87.1 fL (80.0-100.0); Monocytes # (auto) 0.3 10 ^3/uL (0-1.3); Neutrophils # (auto) 3.4 10 ^3/uL (1.6-8.6); Neutrophils % (auto) 68.2 % (37.0-80.0); Nucleated Red Blood Cells % 0.2 %; Platelet Count (auto) 183 10^3/uL (140-450); Red Blood Cells 4.15 10^6/uL (4.0-5.20); Red Cell Distribution Width 14.8 % (11.8-14.3)
[2021-01-18 13:32] LABS: Potassium 3.9 mmol/L (3.5-5.1)
[2021-01-18 13:38] LABS: Albumin 3.4 g/dL (3.4-5.0); BUN/Creatinine Ratio 19.2; Bilirubin, Total 0.5 mg/dL (0.2-1.0); Calcium 8.7 mg/dL (8.5-10.1); Total Protein 6.6 g/dL (6.4-8.2)
[2021-01-19] VITALS (7 sets, daily range): BP systolic 126–194; BP diastolic 61–80
[2021-01-19] MEDS: HYDROcodone-ACET 5/325MG TAB PO PRN ×2 (04:45→09:25)
[2021-01-19 05:56] LABS: Basophils # (auto) 0.1 10 ^3/uL (0-0.2); Eosinophils # (auto) 0 10 ^3/uL (0-0.8); Eosinophils % (auto) 0.1 % (0.0-7.0); Hematocrit 40.9 % (36.0-46.0); Hemoglobin 14.6 g/dL (12.2-16.2); Lymphocytes # (auto) 1.8 10 ^3/uL (0.4-5.4); Lymphocytes % (auto) 28.6 % (10.0-50.0); Mean Corpuscular Hemoglobin 30.8 pg (28.0-32.0); Mean Corpuscular Hgb Conc. 35.6 g/dL (32.0-36.0); Mean Corpuscular Volume 86.7 fL (80.0-100.0); Monocytes # (auto) 0.5 10 ^3/uL (0-1.3); Monocytes % (auto) 7.1 % (0.0-12.0); Neutrophils % (auto) 63.2 % (37.0-80.0); Platelet Count (auto) 213 10^3/uL (140-450); Red Blood Cells 4.72 10^6/uL (4.0-5.20); Red Cell Distribution Width 14.3 % (11.8-14.3); White Blood Cell 6.4 10^3/uL (4.4-10.8)
[2021-01-19 05:57] LABS: Calcium 9.1 mg/dL (8.5-10.1); Potassium 3.6 mmol/L (3.5-5.1)
[2021-01-19 06:02] LABS: BUN/Creatinine Ratio 18.9; Bilirubin, Total 0.6 mg/dL (0.2-1.0); Total Protein 7.8 g/dL (6.4-8.2)
[2021-01-19] MEDS: SODIUM CHLOR 0.9% PF (SALINE LOCK) 10ML VIAL/SYR IV SCH ×3 (06:30→22:03)
[2021-01-19] MEDS: LEVOTHYROXINE SODIUM 25 MCG TAB PO SCH (06:30)
[2021-01-19] MEDS: FAMOTIDINE 20 MG TAB PO SCH (09:25)
[2021-01-19] MEDS: PHENAZOPYRIDINE HCL 100 MG TAB PO SCH ×2 (09:25→22:04)
[2021-01-19] MEDS: cefTRIAXone 1GM/50ML D5W 50 ML IV SCH (09:25)
[2021-01-19] MEDS: ZINC SULFATE 220mg CAP or TAB PO SCH (09:25)
[2021-01-19] MEDS: ASCORBIC ACID 500 MG TAB PO SCH ×2 (09:25→22:04)
[2021-01-19] MEDS: DOCUSATE SOD 100 MG CAP PO SCH ×2 (09:25→22:04)
[2021-01-19] MEDS: MULTIPLE VITAMIN TAB PO SCH (09:26)
[2021-01-19] MEDS: METOPROLOL TARTRATE 25 MG TAB PO SCH ×2 (09:26→22:05)
[2021-01-19] MEDS: ENOXAPARIN SOD 40 MG/0.4 ML SYRINGE SC SCH (09:26)
[2021-01-19] MEDS ORDERED: FUROSEMIDE 40 MG TAB PO ONE (10:45)
[2021-01-19] MEDS ORDERED: cloNIDine HCL 0.1 MG TAB PO PRN (10:45)
[2021-01-19] MEDS ORDERED: POTASSIUM CHL 10 Meq TABLET PO ONE (10:45)
[2021-01-20] VITALS (7 sets, daily range): BP systolic 110–161; BP diastolic 70–109
[2021-01-20] MEDS: HYDROcodone-ACET 5/325MG TAB PO PRN ×3 (02:07→23:18)
[2021-01-20 06:05] LABS: Basophils # (auto) 0 10 ^3/uL (0-0.2); Basophils % (auto) 0.7 % (0.0-2.0); Eosinophils # (auto) 0 10 ^3/uL (0-0.8); Hematocrit 42.3 % (36.0-46.0); Hemoglobin 14.9 g/dL (12.2-16.2); Lymphocytes # (auto) 1.6 10 ^3/uL (0.4-5.4); Lymphocytes % (auto) 23.5 % (10.0-50.0); Mean Corpuscular Hemoglobin 30.5 pg (28.0-32.0); Mean Corpuscular Hgb Conc. 35.3 g/dL (32.0-36.0); Mean Corpuscular Volume 86.5 fL (80.0-100.0); Monocytes # (auto) 0.5 10 ^3/uL (0-1.3); Monocytes % (auto) 7.7 % (0.0-12.0); Neutrophils # (auto) 4.7 10 ^3/uL (1.6-8.6); Neutrophils % (auto) 68.1 % (37.0-80.0); Platelet Count (auto) 235 10^3/uL (140-450); Red Blood Cells 4.89 10^6/uL (4.0-5.20); Red Cell Distribution Width 14.7 % (11.8-14.3)
[2021-01-20] MEDS: LEVOTHYROXINE SODIUM 25 MCG TAB PO SCH (06:22)
[2021-01-20] MEDS: SODIUM CHLOR 0.9% PF (SALINE LOCK) 10ML VIAL/SYR IV SCH ×3 (06:22→23:16)
[2021-01-20 06:25] LABS: Calcium 9.1 mg/dL (8.5-10.1); Potassium 4.1 mmol/L (3.5-5.1)
[2021-01-20 06:30] LABS: Bilirubin, Total 0.6 mg/dL (0.2-1.0); Total Protein 7.8 g/dL (6.4-8.2)
[2021-01-20] MEDS ORDERED: LACTULOSE 20Gm/30ML SOLN PO PRN (08:30)
[2021-01-20] MEDS: ASCORBIC ACID 500 MG TAB PO SCH ×2 (09:49→23:19)
[2021-01-20] MEDS: PHENAZOPYRIDINE HCL 100 MG TAB PO SCH ×2 (09:49→23:19)
[2021-01-20] MEDS: cefTRIAXone 1GM/50ML D5W 50 ML IV SCH (09:49)
[2021-01-20] MEDS: ZINC SULFATE 220mg CAP or TAB PO SCH (09:50)
[2021-01-20] MEDS: FAMOTIDINE 20 MG TAB PO SCH (09:50)
[2021-01-20] MEDS: FUROSEMIDE 40 MG TAB PO SCH (09:50)
[2021-01-20] MEDS: DOCUSATE SOD 100 MG CAP PO SCH ×2 (09:50→23:16)
[2021-01-20] MEDS: MULTIPLE VITAMIN TAB PO SCH (09:50)
[2021-01-20] MEDS: METOPROLOL TARTRATE 25 MG TAB PO SCH ×2 (09:51→23:18)
[2021-01-20] MEDS: POTASSIUM CHL 10 Meq TABLET PO SCH (09:51)
[2021-01-20] MEDS: ENOXAPARIN SOD 40 MG/0.4 ML SYRINGE SC SCH (10:03)
[2021-01-21 05:40] VITALS: BP 166/98
[2021-01-21 05:55] LABS: Basophils # (auto) 0.1 10 ^3/uL (0-0.2); Basophils % (auto) 0.8 % (0.0-2.0); Eosinophils # (auto) 0 10 ^3/uL (0-0.8); Hematocrit 44.4 % (36.0-46.0); Hemoglobin 15.7 g/dL (12.2-16.2); Lymphocytes % (auto) 26.8 % (10.0-50.0); Mean Corpuscular Hgb Conc. 35.4 g/dL (32.0-36.0); Mean Corpuscular Volume 87.7 fL (80.0-100.0); Monocytes # (auto) 0.7 10 ^3/uL (0-1.3); Monocytes % (auto) 9.7 % (0.0-12.0); Neutrophils # (auto) 4.6 10 ^3/uL (1.6-8.6); Neutrophils % (auto) 62.7 % (37.0-80.0); Platelet Count (auto) 224 10^3/uL (140-450); Red Blood Cells 5.06 10^6/uL (4.0-5.20); Red Cell Distribution Width 15.1 % (11.8-14.3); White Blood Cell 7.4 10^3/uL (4.4-10.8)
[2021-01-21 06:02] LABS: Potassium 4.2 mmol/L (3.5-5.1)
[2021-01-21 06:05] LABS: BUN/Creatinine Ratio 23.7
[2021-01-21] MEDS: SODIUM CHLOR 0.9% PF (SALINE LOCK) 10ML VIAL/SYR IV SCH ×3 (06:07→22:00)
[2021-01-21] MEDS: LEVOTHYROXINE SODIUM 25 MCG TAB PO SCH (06:14)
[2021-01-21] MEDS: HYDROcodone-ACET 5/325MG TAB PO PRN ×3 (06:15→21:40)
[2021-01-21 06:19] LABS: Nucleated Red Blood Cells % 7.2 %
[2021-01-21 09:00] VITALS: BP 116/70
[2021-01-21] MEDS: ASCORBIC ACID 500 MG TAB PO SCH ×2 (10:00→22:00)
[2021-01-21] MEDS: DOCUSATE SOD 100 MG CAP PO SCH ×2 (10:26→22:00)
[2021-01-21] MEDS: FAMOTIDINE 20 MG TAB PO SCH (10:26)
[2021-01-21] MEDS: ZINC SULFATE 220mg CAP or TAB PO SCH (10:26)
[2021-01-21] MEDS: PHENAZOPYRIDINE HCL 100 MG TAB PO SCH (10:26)
[2021-01-21] MEDS: METOPROLOL TARTRATE 25 MG TAB PO SCH ×2 (10:29→22:00)
[2021-01-21] MEDS: FUROSEMIDE 40 MG TAB PO SCH (10:29)
[2021-01-21] MEDS: ENOXAPARIN SOD 40 MG/0.4 ML SYRINGE SC SCH (10:30)
[2021-01-21] MEDS: MULTIPLE VITAMIN TAB PO SCH (10:30)
[2021-01-21] MEDS: POTASSIUM CHL 10 Meq TABLET PO SCH (10:32)
[2021-01-21] MEDS: cefTRIAXone 1GM/50ML D5W 50 ML IV SCH (10:36)
[2021-01-21 13:00] VITALS: BP 130/74
[2021-01-21] MEDS: SODIUM CHLORIDE 0.9% 1,000 ML IV SCH (14:45)
[2021-01-21 17:00] VITALS: BP 109/72
[2021-01-21 20:00] VITALS: BP 117/79
[2021-01-21] MEDS: DONEPEZIL HYDROCHLORIDE 5 MG TAB PO SCH (22:00)
[2021-01-22 02:43] VITALS: BP 117/79
[2021-01-22] MEDS: HYDROcodone-ACET 5/325MG TAB PO PRN ×2 (03:40→11:30)
[2021-01-22] MEDS: SODIUM CHLOR 0.9% PF (SALINE LOCK) 10ML VIAL/SYR IV SCH ×3 (06:00→22:21)
[2021-01-22] MEDS: LEVOTHYROXINE SODIUM 25 MCG TAB PO SCH (06:39)
[2021-01-22 06:45] LABS: BUN/Creatinine Ratio 29.1; Calcium 8.5 mg/dL (8.5-10.1); Magnesium 2.4 mg/dL (1.6-2.6)
[2021-01-22 07:04] LABS: Cholesterol 240 mg/dL (< 200); HDL Cholesterol 78 mg/dL (40-59); LDL Cholesterol 146 mg/dL (< 100); Triglycerides 109 mg/dL (< 150)
[2021-01-22] MEDS: SODIUM CHLORIDE 0.9% 1,000 ML IV SCH (07:25)
[2021-01-22 09:00] VITALS: BP 143/79
[2021-01-22] MEDS: cefTRIAXone 1GM/50ML D5W 50 ML IV SCH (09:05)
[2021-01-22] MEDS: DOCUSATE SOD 100 MG CAP PO SCH ×2 (09:06→22:22)
[2021-01-22] MEDS: MULTIPLE VITAMIN TAB PO SCH (09:06)
[2021-01-22] MEDS: ZINC SULFATE 220mg CAP or TAB PO SCH (09:06)
[2021-01-22] MEDS: FLUoxetine HCL 20 MG CAP PO SCH (09:06)
[2021-01-22] MEDS: FAMOTIDINE 20 MG TAB PO SCH (09:06)
[2021-01-22] MEDS: ENOXAPARIN SOD 40 MG/0.4 ML SYRINGE SC SCH (09:07)
[2021-01-22] MEDS: METOPROLOL TARTRATE 25 MG TAB PO SCH ×2 (09:07→22:23)
[2021-01-22] MEDS: ASCORBIC ACID 500 MG TAB PO SCH ×2 (09:09→22:22)
[2021-01-22 13:00] VITALS: BP 147/73
[2021-01-22 17:00] VITALS: BP 132/69
[2021-01-22 22:00] VITALS: BP 128/77
[2021-01-22] MEDS: DONEPEZIL HYDROCHLORIDE 5 MG TAB PO SCH (22:22)
[2021-01-22] MEDS ORDERED: TEMAZEPAM 15 MG CAP PO ONE (22:30)
[2021-01-23] VITALS (8 sets, daily range): BP systolic 120–155; BP diastolic 60–81
[2021-01-23] MEDS: SODIUM CHLORIDE 0.9% 1,000 ML IV SCH (02:10)
[2021-01-23 05:35] LABS: BUN/Creatinine Ratio 34.2; Calcium 8.6 mg/dL (8.5-10.1)
[2021-01-23] MEDS: SODIUM CHLOR 0.9% PF (SALINE LOCK) 10ML VIAL/SYR IV SCH (06:11)
[2021-01-23] MEDS: LEVOTHYROXINE SODIUM 25 MCG TAB PO SCH (06:11)
[2021-01-23] MEDS: HYDROcodone-ACET 5/325MG TAB PO PRN (07:59)
[2021-01-23] MEDS: cefTRIAXone 1GM/50ML D5W 50 ML IV SCH (08:32)
[2021-01-23] MEDS ORDERED: MET25T PO (09:55)
[2021-01-23] MEDS ORDERED: LEVO500T31 PO (09:55)
[2021-01-23] MEDS ORDERED: DOCU-94 PO (10:18)
[2021-01-23] MEDS: ZINC SULFATE 220mg CAP or TAB PO SCH (10:42)
[2021-01-23] MEDS: DOCUSATE SOD 100 MG CAP PO SCH (10:43)
[2021-01-23] MEDS: ASCORBIC ACID 500 MG TAB PO SCH (10:44)
[2021-01-23] MEDS: FLUoxetine HCL 20 MG CAP PO SCH (10:44)
[2021-01-23] MEDS: ENOXAPARIN SOD 40 MG/0.4 ML SYRINGE SC SCH (10:44)
[2021-01-23] MEDS: MULTIPLE VITAMIN TAB PO SCH (10:44)
[2021-01-23] MEDS: FAMOTIDINE 20 MG TAB PO SCH (10:45)
[2021-01-23] MEDS: METOPROLOL TARTRATE 25 MG TAB PO SCH (11:07)
== END 2021-01-23 17:25 | disposition home health service (06) | DRG 689 ==
LOC: ER 15:27 → OVERFLOW 01-18 01:39 → WEST WING 01-18 02:38
PROVIDERS: ADMIT Nurse Practitioner Family; ATTEND Internal Medicine
DX: N30.00 Acute cystitis without hematuria (principal); N17.0 Acute kidney failure with tubular necrosis; E87.1 Hypo-osmolality and hyponatremia; I13.0 Hypertensive heart and chronic kidney disease with heart failure and stage 1 through stage 4 chronic kidney disease, or unspecified chronic kidney disease; Z20.822 Contact with and (suspected) exposure to COVID-19; K59.00 Constipation, unspecified; E03.9 Hypothyroidism, unspecified; E78.5 Hyperlipidemia, unspecified; N18.9 Chronic kidney disease, unspecified; M47.816 Spondylosis without myelopathy or radiculopathy, lumbar region; E86.0 Dehydration; G89.29 Other chronic pain; I25.2 Old myocardial infarction; Z82.49 Family history of ischemic heart disease and other diseases of the circulatory system; Z90.710 Acquired absence of both cervix and uterus; Z79.899 Other long term (current) drug therapy; Z90.49 Acquired absence of other specified parts of digestive tract; Z91.013 Allergy to seafood; Z91.018 Allergy to other foods; Z88.2 Allergy status to sulfonamides; Z88.5 Allergy status to narcotic agent; Z88.8 Allergy status to other drugs, medicaments and biological substances; Z91.011 Allergy to milk products
CPT/HCPCS: 36415; 36600; 71045; 72131; 74176; 76775; 80048; 80053; 80061; 81001; 82805; 83690; 83735; 84443; 85025; 85379; 87086; 87426; 96365; 96375; 97110; 97116; 97530; G0378; J0696; J2405

== ENCOUNTER → 2021-05-17 | Outpatient (CLI) | payer OTHER ==
[~2021-05-17] MED LIST changes: -ASPI-231 PO; +ASPI1TAB20 PO; +DOCU-94 PO; +LEVO500T31 PO; +MET25T PO; -MET50T GT
[2021-05-17 13:32] LABS: Albumin 3.8 g/dL (3.4-5.0); Calcium 9.2 mg/dL (8.5-10.1); Potassium 4.5 mmol/L (3.5-5.1)
[2021-05-17 13:37] LABS: BUN/Creatinine Ratio 15.7; Bilirubin, Total 0.8 mg/dL (0.2-1.0)
== END | disposition home or self-care (01) ==
LOC: LAB 12:52
PROVIDERS: ATTEND Internal Medicine Nephrology
DX: I10 Essential (primary) hypertension (principal); E03.9 Hypothyroidism, unspecified
CPT/HCPCS: 36415; 80053; 84439; 84443

== ENCOUNTER 2021-07-11 15:14 | Emergency (ER) | payer OTHER ==
[~2021-07-11] VITALS: Ht 162.6 cm; Wt 59.0 kg
[2021-07-11 16:38] VITALS: BP 144/70
[2021-07-11] MEDS ORDERED: cefTRIAXone SOD 1,000 MG VL IM ONE (16:45)
[2021-07-11] MEDS ORDERED: IPRATROPIUM BROM 0.5 MG/2.5ML INH SOL NEB ONE (16:45)
[2021-07-11] MEDS ORDERED: ALBUTEROL SULF 2.5 MG/0.5ML(0.5%) NEB SOLN NEB ONE (16:45)
== END 2021-07-11 17:31 | disposition home or self-care (01) ==
LOC: ER 15:14
DX: J20.9 Acute bronchitis, unspecified (principal); J03.90 Acute tonsillitis, unspecified; Z20.822 Contact with and (suspected) exposure to COVID-19
CPT/HCPCS: 36415; 71045; 87426; 94640; 96372; 99284; J0696; J7644

== ENCOUNTER 2022-01-01 12:00 | Inpatient (IN) | payer OTHER ==
[~2022-01-01] VITALS: Ht 154.9 cm; Wt 58.0 kg
[2022-01-01 15:52] LABS: Basophils # (auto) 0.1 10 ^3/uL (0-0.2); Basophils % (auto) 1.1 % (0.0-2.0); Eosinophils # (auto) 0 10 ^3/uL (0-0.8); Hematocrit 34.1 % (36.0-46.0); Hemoglobin 11.8 g/dL (12.2-16.2); Lymphocytes # (auto) 1.1 10 ^3/uL (0.4-5.4); Mean Corpuscular Hemoglobin 30.4 pg (28.0-32.0); Mean Corpuscular Hgb Conc. 34.5 g/dL (32.0-36.0); Mean Corpuscular Volume 87.9 fL (80.0-100.0); Monocytes # (auto) 0.3 10 ^3/uL (0-1.3); Neutrophils # (auto) 3.2 10 ^3/uL (1.6-8.6); Neutrophils % (auto) 69.9 % (37.0-80.0); Nucleated Red Blood Cells % 0.5 %; Red Blood Cells 3.88 10^6/uL (4.0-5.20); White Blood Cell 4.6 10^3/uL (4.4-10.8)
[2022-01-01 16:06] LABS: INR 0.99 (0.9-1.15)
[2022-01-01 16:12] LABS: Albumin 3.9 g/dL (3.4-5.0); BUN/Creatinine Ratio 19.5; Calcium 9.3 mg/dL (8.5-10.1); Potassium 3.6 mmol/L (3.5-5.1)
[2022-01-01 16:15] LABS: Bilirubin, Total 0.6 mg/dL (0.2-1.0); Total Protein 7.2 g/dL (6.4-8.2)
[2022-01-01] MEDS ORDERED: IOHEXOL 350 MG/ML 100ML IJ ONE (17:39)
[2022-01-02] VITALS (7 sets, daily range): BP systolic 101–164; BP diastolic 58–82
[2022-01-02] MEDS ORDERED: KETOROLAC TROMETH 30 MG/ML 1ML VIAL IV ONE ×2 (01:30→17:15)
[2022-01-02] MEDS ORDERED: MORPHINE SULFATE INJ 2 MG/ml SYRG IV PRN ×2 (02:00)
[2022-01-02] MEDS ORDERED: NITROGLYCERIN 0.4 MG SL TAB SL PRN (02:00)
[2022-01-02] MEDS ORDERED: TEMAZEPAM 15 MG CAP PO PRN (02:00)
[2022-01-02] MEDS ORDERED: HYDROcodone-ACET 5/325MG TAB PO PRN (02:00)
[2022-01-02] MEDS ORDERED: ONDANSETRON HCL 4 MG/2 ML VIAL IV PRN (02:00)
[2022-01-02] MEDS ORDERED: ACETAMINOPHEN 325 MG TAB PO PRN (02:00)
[2022-01-02] MEDS ORDERED: LEVOTHYROXINE SODIUM 25 MCG TAB PO SCH (07:00)
[2022-01-02 08:32] LABS: BUN/Creatinine Ratio 18.2; Calcium 8.9 mg/dL (8.5-10.1); Potassium 3.4 mmol/L (3.5-5.1)
[2022-01-02] MEDS ORDERED: ASPirin 81 mg TAB PO SCH (10:00)
[2022-01-02] MEDS ORDERED: ENOXAPARIN SOD 40 MG/0.4 ML SYRINGE SC SCH (10:00)
[2022-01-02] MEDS ORDERED: METOPROLOL TARTRATE 25 MG TAB PO SCH (10:00)
[2022-01-02] MEDS ORDERED: PANTOPRAZOLE 40 MG TAB PO SCH (10:00)
[2022-01-02 11:45] LABS: Urine Bacteria MANY /hpf (None Seen); Urine Blood Negative /uL (Negative); Urine Mucus MODERATE (None Seen); Urine WBC 55 /hpf (0 - 5)
[2022-01-02 11:48] LABS: Urine Specific Gravity 1.032 (1.001-1.035)
[2022-01-02] MEDS ORDERED: traMADol HCL 50 MG TAB PO PRN (12:30)
[2022-01-02] MEDS ORDERED: POTASSIUM EFFERVESENT TAB 25 MEQ PO ONE (13:15)
[2022-01-02] MEDS ORDERED: DONEPEZIL HYDROCHLORIDE 5 MG TAB PO SCH (22:00)
[2022-01-02] MEDS ORDERED: ATORVASTATIN 20 MG TAB PO SCH (22:00)
[2022-01-02] MEDS ORDERED: LISINOPRIL 20 MG TAB PO SCH (22:00)
== END 2022-01-02 18:39 | disposition home or self-care (01) | DRG 312 ==
LOC: ER 12:00 → TELE 01-02 01:56 → TELE-WESTW 01-02 04:07
PROVIDERS: ADMIT Nurse Practitioner; ATTEND Internal Medicine
DX: R55 Syncope and collapse (principal); Z20.822 Contact with and (suspected) exposure to COVID-19; D64.9 Anemia, unspecified; E03.9 Hypothyroidism, unspecified; E78.5 Hyperlipidemia, unspecified; E87.6 Hypokalemia; F32.A Depression, unspecified; I11.0 Hypertensive heart disease with heart failure; I48.0 Paroxysmal atrial fibrillation; I50.9 Heart failure, unspecified; W18.39XA Other fall on same level, initial encounter; Y93.89 Activity, other specified; Z91.013 Allergy to seafood; Z82.49 Family history of ischemic heart disease and other diseases of the circulatory system; Z90.710 Acquired absence of both cervix and uterus; Y92.89 Other specified places as the place of occurrence of the external cause; Y99.8 Other external cause status; Z90.49 Acquired absence of other specified parts of digestive tract; Z88.8 Allergy status to other drugs, medicaments and biological substances; Z88.2 Allergy status to sulfonamides; Z91.011 Allergy to milk products
CPT/HCPCS: 36415; 70450; 70496; 70498; 72131; 72192; 80048; 80053; 81001; 84439; 84443; 84484; 85025; 85610; 93306; 93886; 96374; G0378; J1885

== ENCOUNTER 2022-02-26 17:08 | Inpatient (IN) | payer OTHER ==
[~2022-02-26] VITALS: Ht 162.6 cm; Wt 55.0 kg
[~2022-02-26 17:08] MED LIST changes: -LEVO500T31 PO; -MET25T PO; -VANC125PO PO
[2022-02-26 18:18] LABS: BUN/Creatinine Ratio 16.5; Calcium 9.7 mg/dL (8.5-10.1); Potassium 3.7 mmol/L (3.5-5.1)
[2022-02-26 18:21] LABS: Bilirubin, Total 1.1 mg/dL (0.2-1.0); Total Protein 7.5 g/dL (6.4-8.2)
[2022-02-26 18:48] LABS: Basophils # (auto) 0.1 10 ^3/uL (0-0.2); Basophils % (auto) 0.8 % (0.0-2.0); Eosinophils # (auto) 0 10 ^3/uL (0-0.8); Hematocrit 35.5 % (36.0-46.0); Hemoglobin 11.8 g/dL (12.2-16.2); Lymphocytes # (auto) 1.3 10 ^3/uL (0.4-5.4); Lymphocytes % (auto) 17.7 % (10.0-50.0); Mean Corpuscular Hemoglobin 29.2 pg (28.0-32.0); Mean Corpuscular Hgb Conc. 33.3 g/dL (32.0-36.0); Mean Corpuscular Volume 87.7 fL (80.0-100.0); Monocytes # (auto) 0.4 10 ^3/uL (0-1.3); Monocytes % (auto) 5.2 % (0.0-12.0); Neutrophils # (auto) 5.5 10 ^3/uL (1.6-8.6); Neutrophils % (auto) 76.3 % (37.0-80.0); Nucleated Red Blood Cells % 0.3 %; Red Blood Cells 4.05 10^6/uL (4.0-5.20); Red Cell Distribution Width 15.6 % (11.8-14.3); White Blood Cell 7.2 10^3/uL (4.4-10.8)
[2022-02-26] MEDS ORDERED: ONDANSETRON HCL 4 MG/2 ML VIAL IV PRN (22:15)
[2022-02-26] MEDS ORDERED: NITROGLYCERIN 0.4 MG SL TAB SL PRN (22:15)
[2022-02-26] MEDS ORDERED: ASPirin 81 mg TAB PO ONE (22:15)
[2022-02-26] MEDS ORDERED: TEMAZEPAM 15 MG CAP PO PRN (22:15)
[2022-02-26] MEDS ORDERED: MORPHINE SULFATE INJ 2 MG/ml SYRG IV PRN (22:15)
[2022-02-26] MEDS ORDERED: ACETAMINOPHEN 325 MG TAB PO ONE (22:15)
[2022-02-27] VITALS (7 sets, daily range): BP systolic 134–147; BP diastolic 60–89
[2022-02-27] MEDS: ACETAMINOPHEN 325 MG TAB PO PRN (02:55)
[2022-02-27] MEDS ORDERED: FLUO-259 PO (03:31)
[2022-02-27] MEDS ORDERED: TRAZ50TA2 PO (03:31)
[2022-02-27] MEDS ORDERED: APIX5TAB PO (03:31)
[2022-02-27] MEDS ORDERED: LEVO100T8 PO (03:31)
[2022-02-27 05:07] LABS: Basophils # (auto) 0 10 ^3/uL (0-0.2); Basophils % (auto) 0.8 % (0.0-2.0); Eosinophils # (auto) 0 10 ^3/uL (0-0.8); Hematocrit 29.7 % (36.0-46.0); Hemoglobin 10.3 g/dL (12.2-16.2); Lymphocytes # (auto) 1.7 10 ^3/uL (0.4-5.4); Lymphocytes % (auto) 32.6 % (10.0-50.0); Mean Corpuscular Hemoglobin 29.7 pg (28.0-32.0); Mean Corpuscular Hgb Conc. 34.8 g/dL (32.0-36.0); Mean Corpuscular Volume 85.3 fL (80.0-100.0); Monocytes # (auto) 0.4 10 ^3/uL (0-1.3); Monocytes % (auto) 8.1 % (0.0-12.0); Neutrophils % (auto) 58.5 % (37.0-80.0); Nucleated Red Blood Cells % 0.1 %; Red Blood Cells 3.48 10^6/uL (4.0-5.20); Red Cell Distribution Width 15.4 % (11.8-14.3); White Blood Cell 5.1 10^3/uL (4.4-10.8)
[2022-02-27 05:18] LABS: Albumin 3.4 g/dL (3.4-5.0); Calcium 8.9 mg/dL (8.5-10.1); Potassium 3.7 mmol/L (3.5-5.1)
[2022-02-27 05:21] LABS: BUN/Creatinine Ratio 22.4
[2022-02-27 05:32] LABS: Urine Bacteria FEW /hpf (None Seen); Urine Blood Negative /uL (Negative); Urine Hyaline Cast FEW /lpf (0 - 2); Urine Mucus FEW (None Seen); Urine Specific Gravity 1.019 (1.001-1.035); Urine WBC 130 /hpf (0 - 5)
[2022-02-27 05:33] LABS: Total Protein 6.4 g/dL (6.4-8.2)
[2022-02-27] MEDS ORDERED: LEVOTHYROXINE SODIUM 25 MCG TAB PO SCH ×2 (07:00)
[2022-02-27] MEDS: APIXABAN 5 MG TAB PO SCH ×2 (08:34→21:24)
[2022-02-27] MEDS: LISINOPRIL 5 MG TAB PO SCH (08:35)
[2022-02-27 08:54] LABS: Free T4 (Free Thyroxine) 1.67 ng/dL (0.89-1.76); T3 Total 1.43 ng/mL (0.60-1.81)
[2022-02-27] MEDS ORDERED: ASPirin 81 mg TAB PO SCH (10:00)
[2022-02-27] MEDS ORDERED: PANTOPRAZOLE 40 MG TAB PO SCH (10:00)
[2022-02-27] MEDS ORDERED: LOPERAMIDE HCL 2 MG CAP/TAB PO PRN (10:45)
[2022-02-27] MEDS ORDERED: cefTRIAXone 1GM/50ML D5W 50 ML IV ONE (12:45)
[2022-02-27 12:55] LABS: % Iron Saturation 26.3 % (15-50)
[2022-02-27] MEDS ORDERED: ATORVASTATIN 20 MG TAB PO SCH (22:00)
[2022-02-27] MEDS ORDERED: DONEPEZIL HYDROCHLORIDE 5 MG TAB PO SCH (22:00)
[2022-02-28 05:00] VITALS: BP 113/50
[2022-02-28 05:55] LABS: Basophils # (auto) 0 10 ^3/uL (0-0.2); Basophils % (auto) 0.7 % (0.0-2.0); Eosinophils # (auto) 0 10 ^3/uL (0-0.8); Eosinophils % (auto) 0.1 % (0.0-7.0); Hematocrit 31.6 % (36.0-46.0); Hemoglobin 11.1 g/dL (12.2-16.2); Lymphocytes # (auto) 1.3 10 ^3/uL (0.4-5.4); Lymphocytes % (auto) 20.3 % (10.0-50.0); Mean Corpuscular Hemoglobin 29.8 pg (28.0-32.0); Mean Corpuscular Hgb Conc. 35.2 g/dL (32.0-36.0); Mean Corpuscular Volume 84.8 fL (80.0-100.0); Monocytes # (auto) 0.4 10 ^3/uL (0-1.3); Monocytes % (auto) 7.3 % (0.0-12.0); Neutrophils # (auto) 4.4 10 ^3/uL (1.6-8.6); Neutrophils % (auto) 71.6 % (37.0-80.0); Nucleated Red Blood Cells % 0.2 %; Red Blood Cells 3.73 10^6/uL (4.0-5.20); Red Cell Distribution Width 15.6 % (11.8-14.3); White Blood Cell 6.2 10^3/uL (4.4-10.8)
[2022-02-28] MEDS ORDERED: LEVOTHYROXINE SODIUM 25 MCG TAB PO SCH (07:00)
[2022-02-28 08:47] VITALS: BP 113/44
[2022-02-28] MEDS ORDERED: cefTRIAXone 1GM/50ML D5W 50 ML IV SCH (09:00)
[2022-02-28] MEDS: ACETAMINOPHEN 325 MG TAB PO PRN (09:58)
[2022-02-28] MEDS: APIXABAN 5 MG TAB PO SCH (09:58)
[2022-02-28] MEDS: LISINOPRIL 5 MG TAB PO SCH (09:59)
[2022-02-28 12:15] VITALS: BP 108/75
[2022-02-28] MEDS ORDERED: ADENOSINE 46 MG in GIVE UN-DILUTED 0 ML IV ONE (12:30)
[2022-02-28 13:27] LABS: Urine Bacteria NONE SEEN /hpf (None Seen); Urine Blood Negative /uL (Negative); Urine Specific Gravity 1.008 (1.001-1.035); Urine WBC 27 /hpf (0 - 5)
[2022-02-28] MEDS ORDERED: APIX5TAB PO (14:41)
[2022-02-28 15:41] VITALS: BP 108/75
[2022-02-28] MEDS ORDERED: AMIODARONE HCL 200 MG TAB PO ONE (16:15)
[2022-02-28] MEDS ORDERED: METOPROLOL SUCCINATE XL 50 MG TAB PO ONE (16:15)
[2022-02-28 16:45] VITALS: BP 102/63
[2022-02-28] MEDS ORDERED: traMADol HCL 50 MG TAB PO SCH (22:00)
== END 2022-02-28 17:37 | disposition home or self-care (01) | DRG 313 ==
LOC: ER 17:08 → TELE 22:08 → TELE-WESTW 02-27 02:32
PROVIDERS: ADMIT Nurse Practitioner; ATTEND Internal Medicine Nephrology
DX: R07.89 Other chest pain (principal); I08.0 Rheumatic disorders of both mitral and aortic valves; G89.29 Other chronic pain; E78.5 Hyperlipidemia, unspecified; E03.9 Hypothyroidism, unspecified; I11.0 Hypertensive heart disease with heart failure; I48.91 Unspecified atrial fibrillation; I50.9 Heart failure, unspecified; I95.1 Orthostatic hypotension; Z20.822 Contact with and (suspected) exposure to COVID-19; Z82.49 Family history of ischemic heart disease and other diseases of the circulatory system; I25.2 Old myocardial infarction; Z90.710 Acquired absence of both cervix and uterus; Z88.8 Allergy status to other drugs, medicaments and biological substances
CPT/HCPCS: 36415; 71045; 78452; 80053; 81001; 83540; 83550; 83735; 83880; 84439; 84443; 84480; 84484; 85025; 87040; 87086; 93005; 93017; 97163; G0378; J0153; J0696

== ENCOUNTER → 2022-05-22 | Outpatient (CLI) | payer OTHER ==
[~2022-05-22] VITALS: Ht 152.4 cm; Wt 59.0 kg
[~2022-05-22] MED LIST changes: +ADENOSINE 50 MG in GIVE UN-DILUTED 0 ML IV ONE; +ADENOSINE 90 MG/30 ML INJ IV ONE; +APIX5TAB PO; -ASPI1TAB20 PO; -LEV75T PO; -PRA1C PO; -TRAZ50T PO; +TRAZ50TA2 PO
== END | disposition home or self-care (01) ==
LOC: Rad HDHVI 09:19
PROVIDERS: ATTEND Internal Medicine Cardiovascular Disease
DX: R07.89 Other chest pain (principal); R00.2 Palpitations; R06.02 Shortness of breath; I25.2 Old myocardial infarction; I48.20 Chronic atrial fibrillation, unspecified; R42 Dizziness and giddiness; I10 Essential (primary) hypertension; E78.5 Hyperlipidemia, unspecified; Z82.49 Family history of ischemic heart disease and other diseases of the circulatory system
CPT/HCPCS: 78452; 93005; 96374; 96375; A9500; J0153

== ENCOUNTER 2022-08-28 23:29 | Inpatient (IN) | payer OTHER ==
[~2022-08-28] VITALS: Ht 152.4 cm; Wt 69.0 kg
[~2022-08-28 23:29] MED LIST changes: -ADENOSINE 50 MG in GIVE UN-DILUTED 0 ML IV ONE; -ADENOSINE 90 MG/30 ML INJ IV ONE
[2022-08-29 00:34] LABS: Basophils # (auto) 0 10 ^3/uL (0-0.2); Basophils % (auto) 0.5 % (0.0-2.0); Eosinophils # (auto) 0 10 ^3/uL (0-0.8); Eosinophils % (auto) 0.2 % (0.0-7.0); Hematocrit 36.4 % (36.0-46.0); Hemoglobin 12.3 g/dL (12.2-16.2); Lymphocytes # (auto) 1.3 10 ^3/uL (0.4-5.4); Lymphocytes % (auto) 15.3 % (10.0-50.0); Mean Corpuscular Hemoglobin 30.7 pg (28.0-32.0); Mean Corpuscular Hgb Conc. 33.6 g/dL (32.0-36.0); Mean Corpuscular Volume 91.1 fL (80.0-100.0); Monocytes # (auto) 0.5 10 ^3/uL (0-1.3); Monocytes % (auto) 5.6 % (0.0-12.0); Neutrophils # (auto) 6.6 10 ^3/uL (1.6-8.6); Neutrophils % (auto) 78.4 % (37.0-80.0); Nucleated Red Blood Cells % 0.1 %; Red Cell Distribution Width 14.7 % (11.8-14.3); White Blood Cell 8.4 10^3/uL (4.4-10.8)
[2022-08-29] MEDS ORDERED: ASPirin 325 MG TAB PO ONE (00:45)
[2022-08-29] MEDS ORDERED: MAGNESIUM SULFATE 1GM/100ML 100 ML IV ONE (00:45)
[2022-08-29 00:49] LABS: Albumin 3.6 g/dL (3.4-5.0); BUN/Creatinine Ratio 20.2; Calcium 9.3 mg/dL (8.5-10.1); Magnesium 2.1 mg/dL (1.6-2.6); Potassium 4.4 mmol/L (3.5-5.1)
[2022-08-29 00:52] LABS: Bilirubin, Total 0.6 mg/dL (0.2-1.0); INR 0.96 (0.9-1.15); Partial Thromboplastin Time 23.3 sec (24.6-33.4); Total Protein 6.5 g/dL (6.4-8.2)
[2022-08-29] MEDS ORDERED: HYDROcodone-ACET 5/325MG TAB PO ONE (01:00)
[2022-08-29] MEDS ORDERED: ONDANSETRON HCL 4 MG/2 ML VIAL IV ONE (02:00)
[2022-08-29] MEDS ORDERED: HYDROmorphone HCL 2 MG/ML VL/or syr IV ONE (02:00)
[2022-08-29] MEDS ORDERED: SODIUM CHLORIDE 0.9% 1,000 ML IV ONE (04:45)
[2022-08-29] MEDS ORDERED: MORPHINE SULFATE INJ 2 MG/ml SYRG IV PRN ×2 (06:30)
[2022-08-29] MEDS ORDERED: ONDANSETRON HCL 4 MG/2 ML VIAL IV PRN (06:30)
[2022-08-29] MEDS ORDERED: DOCUSATE SOD 100 MG CAP PO PRN (06:30)
[2022-08-29] MEDS ORDERED: SOD CHL 0.45% 1,000 ML IV SCH (06:45)
[2022-08-29 07:16] LABS: Basophils # (auto) 0.1 10 ^3/uL (0-0.2); Basophils % (auto) 0.8 % (0.0-2.0); Eosinophils # (auto) 0 10 ^3/uL (0-0.8); Eosinophils % (auto) 0.8 % (0.0-7.0); Hematocrit 34.6 % (36.0-46.0); Hemoglobin 11.9 g/dL (12.2-16.2); Lymphocytes # (auto) 1.9 10 ^3/uL (0.4-5.4); Lymphocytes % (auto) 30.6 % (10.0-50.0); Mean Corpuscular Hemoglobin 31.5 pg (28.0-32.0); Mean Corpuscular Hgb Conc. 34.5 g/dL (32.0-36.0); Mean Corpuscular Volume 91.4 fL (80.0-100.0); Monocytes # (auto) 0.4 10 ^3/uL (0-1.3); Monocytes % (auto) 6.2 % (0.0-12.0); Neutrophils # (auto) 3.9 10 ^3/uL (1.6-8.6); Neutrophils % (auto) 61.6 % (37.0-80.0); Nucleated Red Blood Cells % 0.2 %; Red Blood Cells 3.79 10^6/uL (4.0-5.20); Red Cell Distribution Width 15.1 % (11.8-14.3); White Blood Cell 6.3 10^3/uL (4.4-10.8)
[2022-08-29 07:30] LABS: Albumin 3.7 g/dL (3.4-5.0); Calcium 8.4 mg/dL (8.5-10.1); Potassium 4.3 mmol/L (3.5-5.1)
[2022-08-29 07:36] LABS: BUN/Creatinine Ratio 20.2; Bilirubin, Total 0.5 mg/dL (0.2-1.0); Total Protein 6.3 g/dL (6.4-8.2)
[2022-08-29 11:11] LABS: Urine Bacteria FEW /hpf (None Seen); Urine Blood Negative /uL (Negative); Urine Hyaline Cast FEW /lpf (0 - 2); Urine Mucus FEW (None Seen); Urine Specific Gravity 1.027 (1.001-1.035); Urine WBC 42 /hpf (0 - 5)
[2022-08-29] MEDS: ACETAMINOPHEN 325 MG TAB PO PRN ×3 (13:16→23:52)
[2022-08-29] MEDS: ASPirin 81 mg TAB PO SCH (13:16)
[2022-08-29] MEDS: ATORVASTATIN 20 MG TAB PO SCH (21:32)
[2022-08-30 06:22] LABS: Basophils # (auto) 0.1 10 ^3/uL (0-0.2); Basophils % (auto) 0.7 % (0.0-2.0); Eosinophils # (auto) 0.1 10 ^3/uL (0-0.8); Eosinophils % (auto) 1.1 % (0.0-7.0); Hematocrit 34.8 % (36.0-46.0); Hemoglobin 11.7 g/dL (12.2-16.2); Lymphocytes # (auto) 1.6 10 ^3/uL (0.4-5.4); Lymphocytes % (auto) 22.2 % (10.0-50.0); Mean Corpuscular Hemoglobin 31.1 pg (28.0-32.0); Mean Corpuscular Hgb Conc. 33.5 g/dL (32.0-36.0); Mean Corpuscular Volume 92.8 fL (80.0-100.0); Monocytes # (auto) 0.5 10 ^3/uL (0-1.3); Monocytes % (auto) 6.6 % (0.0-12.0); Neutrophils % (auto) 69.4 % (37.0-80.0); Nucleated Red Blood Cells % 0.1 %; Red Blood Cells 3.75 10^6/uL (4.0-5.20); White Blood Cell 7.3 10^3/uL (4.4-10.8)
[2022-08-30 06:52] LABS: Albumin 3.7 g/dL (3.4-5.0); Calcium 8.5 mg/dL (8.5-10.1); Potassium 4.5 mmol/L (3.5-5.1)
[2022-08-30 06:57] LABS: Bilirubin, Total 0.8 mg/dL (0.2-1.0); Total Protein 6.7 g/dL (6.4-8.2)
[2022-08-30] MEDS ORDERED: PANTOPRAZOLE 40 MG TAB PO ONE (09:00)
[2022-08-30] MEDS: ASPirin 81 mg TAB PO SCH (10:20)
[2022-08-30] MEDS: PANTOPRAZOLE 40 MG TAB PO SCH (10:23)
[2022-08-30] MEDS: NITROGLYCERIN 0.4 MG SL TAB SL PRN ×5 (10:46→14:10)
[2022-08-30 12:23] VITALS: BP 136/68
[2022-08-30] MEDS: ACETAMINOPHEN 325 MG TAB PO PRN ×2 (13:40→20:39)
[2022-08-30 16:26] VITALS: BP 121/59
[2022-08-30] MEDS ORDERED: KETOROLAC TROMETH 30 MG/ML 1ML VIAL IV PRN (19:15)
[2022-08-30] MEDS: ATORVASTATIN 20 MG TAB PO SCH (20:39)
[2022-08-31] VITALS (7 sets, daily range): BP systolic 129–147; BP diastolic 61–82
[2022-08-31] MEDS: ACETAMINOPHEN 325 MG TAB PO PRN ×3 (02:39→14:54)
[2022-08-31] MEDS: ASPirin 81 mg TAB PO SCH (10:29)
[2022-08-31] MEDS: PANTOPRAZOLE 40 MG TAB PO SCH (10:29)
[2022-08-31] MEDS ORDERED: HYDROcodone-ACET 5/325MG TAB PO ONE (18:30)
[2022-08-31] MEDS: BACITRACIN TOP OINT 1 UD PKG TOP SCH (21:50)
[2022-08-31] MEDS: ATORVASTATIN 20 MG TAB PO SCH (21:50)
[2022-09-01] VITALS (7 sets, daily range): BP systolic 102–151; BP diastolic 60–85
[2022-09-01] MEDS: BACITRACIN TOP OINT 1 UD PKG TOP SCH ×3 (05:44→21:23)
[2022-09-01] MEDS: PANTOPRAZOLE 40 MG TAB PO SCH (09:53)
[2022-09-01] MEDS: ASPirin 81 mg TAB PO SCH (10:44)
[2022-09-01] MEDS ORDERED: RANOLAZINE ER 500 MG TAB PO ONE (11:15)
[2022-09-01] MEDS ORDERED: cefTRIAXone 1GM/50ML D5W 50 ML IV ONE (11:15)
[2022-09-01] MEDS ORDERED: PRA1C PO (11:21)
[2022-09-01] MEDS ORDERED: AMIO200T33 PO (11:21)
[2022-09-01] MEDS ORDERED: METO-6 PO (11:21)
[2022-09-01] MEDS ORDERED: ENOXAPARIN SOD 30 MG/0.3 ML SYRINGE SC ONE (11:45)
[2022-09-01] MEDS ORDERED: ISOSORBIDE MONONITRATE ER 60 MG TAB PO ONE (11:45)
[2022-09-01] MEDS ORDERED: AMIODARONE HCL 200 MG TAB PO ONE (11:45)
[2022-09-01 12:41] LABS: Cholesterol 179 mg/dL (< 200); HDL Cholesterol 86 mg/dL (40-59); LDL Cholesterol 87 mg/dL (< 100); Triglycerides 100 mg/dL (< 150)
[2022-09-01] MEDS: ACETAMINOPHEN 325 MG TAB PO PRN (15:11)
[2022-09-01] MEDS: RANOLAZINE ER 500 MG TAB PO SCH (21:23)
[2022-09-01] MEDS: ATORVASTATIN 20 MG TAB PO SCH (21:23)
[2022-09-02] VITALS (10 sets, daily range): BP systolic 109–161; BP diastolic 56–85
[2022-09-02] MEDS: BACITRACIN TOP OINT 1 UD PKG TOP SCH ×3 (05:46→21:47)
[2022-09-02] MEDS: cefTRIAXone 1GM/50ML D5W 50 ML IV SCH (09:23)
[2022-09-02] MEDS: ENOXAPARIN SOD 30 MG/0.3 ML SYRINGE SC SCH (10:00)
[2022-09-02] MEDS: AMIODARONE HCL 200 MG TAB PO SCH (10:16)
[2022-09-02] MEDS: ASPirin 81 mg TAB PO SCH (10:16)
[2022-09-02] MEDS: RANOLAZINE ER 500 MG TAB PO SCH ×2 (10:17→21:47)
[2022-09-02] MEDS: ISOSORBIDE MONONITRATE ER 60 MG TAB PO SCH (10:17)
[2022-09-02] MEDS ORDERED: LIDOCAINE 2%HCL (LOCAL ANESTH.) INJ 20ML MDV ONE (13:27)
[2022-09-02] MEDS ORDERED: IODIXANOL 320MG/ML 100ML BTL IV ONE (13:28)
[2022-09-02] MEDS ORDERED: SODIUM CHL 0.9% 50 ML ONE (13:28)
[2022-09-02] MEDS ORDERED: MIDAZOLAM HCL 2MG/2ML 2ml VIAL (1mg/ml) ONE (13:28)
[2022-09-02] MEDS ORDERED: fentaNYL CITRATE 100 MCG/2 ML VL ONE (13:28)
[2022-09-02] MEDS ORDERED: ANGIOMAX 250 MG VIAL IV ONE (13:28)
[2022-09-02] MEDS: ACETAMINOPHEN 325 MG TAB PO PRN (20:33)
[2022-09-02] MEDS: ATORVASTATIN 20 MG TAB PO SCH (21:47)
[2022-09-02] MEDS ORDERED: ACETAMINOPHEN 325 MG TAB PO PRN (22:45)
[2022-09-03] MEDS ORDERED: ACETAMINOPHEN 325 MG TAB PO PRN (01:15)
[2022-09-03] MEDS: HYDROcodone-ACET 5/325MG TAB PO PRN ×2 (02:38→09:51)
[2022-09-03 04:43] VITALS: BP 111/70
[2022-09-03] MEDS: BACITRACIN TOP OINT 1 UD PKG TOP SCH ×2 (06:57→16:51)
[2022-09-03 09:00] VITALS: BP 145/83
[2022-09-03] MEDS: AMIODARONE HCL 200 MG TAB PO SCH (09:48)
[2022-09-03] MEDS: ASPirin 81 mg TAB PO SCH (09:48)
[2022-09-03] MEDS: RANOLAZINE ER 500 MG TAB PO SCH (09:50)
[2022-09-03] MEDS: ISOSORBIDE MONONITRATE ER 60 MG TAB PO SCH (09:50)
[2022-09-03] MEDS: ENOXAPARIN SOD 30 MG/0.3 ML SYRINGE SC SCH (09:53)
[2022-09-03] MEDS: cefTRIAXone 1GM/50ML D5W 50 ML IV SCH (09:54)
[2022-09-03 13:00] VITALS: BP 129/73
[2022-09-03] MEDS ORDERED: ASPI-325 PO (13:17)
[2022-09-03] MEDS ORDERED: RANO500T PO (13:17)
[2022-09-03 15:57] VITALS: BP 145/83
== END 2022-09-03 18:20 | disposition home or self-care (01) | DRG 287 ==
LOC: EDBD 23:29 → ER 23:29 → TELE 08-29 06:32 → TELE-E-ADS 08-30 12:11 → TELE-WESTW 08-30 14:15
PROVIDERS: ADMIT Nurse Practitioner Family; ATTEND Internal Medicine
PROC: 4A023N7 Measurement of Cardiac Sampling and Pressure, Left Heart, Percutaneous Approach (ICD-10-PCS; principal; 2022-08-29)
PROC: B211YZZ Fluoroscopy of Multiple Coronary Arteries using Other Contrast (ICD-10-PCS; 2022-08-29)
PROC: B215YZZ Fluoroscopy of Left Heart using Other Contrast (ICD-10-PCS; 2022-08-29)
PROC: B41CYZZ Fluoroscopy of Pelvic Arteries using Other Contrast (ICD-10-PCS; 2022-08-29)
DX: I20.0 Unstable angina (principal); N17.9 Acute kidney failure, unspecified; I48.0 Paroxysmal atrial fibrillation; E86.0 Dehydration; E78.5 Hyperlipidemia, unspecified; I11.0 Hypertensive heart disease with heart failure; I50.9 Heart failure, unspecified; E03.9 Hypothyroidism, unspecified; E07.9 Disorder of thyroid, unspecified; Z20.822 Contact with and (suspected) exposure to COVID-19; Z82.49 Family history of ischemic heart disease and other diseases of the circulatory system; Z90.710 Acquired absence of both cervix and uterus; Z80.49 Family history of malignant neoplasm of other genital organs; Z88.2 Allergy status to sulfonamides; Z88.8 Allergy status to other drugs, medicaments and biological substances; Z91.011 Allergy to milk products; Z88.5 Allergy status to narcotic agent; Z91.013 Allergy to seafood
CPT/HCPCS: 36415; 70450; 71046; 80053; 80061; 81001; 83036; 83735; 83880; 84439; 84443; 84484; 85025; 85610; 85730; 86850; 86900; 86901; 87426; 93005; 93306; 93971; 96365; 96375; 99152; G0378; J0696; J2250; J2405; Q9967

== ENCOUNTER → 2022-11-11 | Outpatient (CLI) | payer OTHER ==
[~2022-11-11] MED LIST changes: +AMIO200T33 PO; +ASPI-325 PO; +METO-6 PO; +PRA1C PO; +RANO500T PO
[2022-11-11 12:08] LABS: Basophils # (auto) 0.1 10 ^3/uL (0-0.2); Basophils % (auto) 0.9 % (0.0-2.0); Eosinophils # (auto) 0.1 10 ^3/uL (0-0.8); Eosinophils % (auto) 1.3 % (0.0-7.0); Hematocrit 35.7 % (36.0-46.0); Hemoglobin 12.2 g/dL (12.2-16.2); Lymphocytes # (auto) 1.1 10 ^3/uL (0.4-5.4); Lymphocytes % (auto) 16.8 % (10.0-50.0); Mean Corpuscular Hemoglobin 30.7 pg (28.0-32.0); Mean Corpuscular Hgb Conc. 34.3 g/dL (32.0-36.0); Mean Corpuscular Volume 89.6 fL (80.0-100.0); Monocytes # (auto) 0.4 10 ^3/uL (0-1.3); Monocytes % (auto) 5.9 % (0.0-12.0); Neutrophils # (auto) 4.9 10 ^3/uL (1.6-8.6); Neutrophils % (auto) 75.1 % (37.0-80.0); Nucleated Red Blood Cells % 0.1 %; Red Blood Cells 3.98 10^6/uL (4.0-5.20); Red Cell Distribution Width 14.8 % (11.8-14.3); White Blood Cell 6.5 10^3/uL (4.4-10.8)
[2022-11-11 13:43] LABS: Albumin 3.5 g/dL (3.4-5.0); Calcium 9.4 mg/dL (8.5-10.1); Potassium 4.5 mmol/L (3.5-5.1)
[2022-11-11 13:50] LABS: Bilirubin, Total 0.8 mg/dL (0.2-1.0); Total Protein 7.2 g/dL (6.4-8.2)
== END | disposition home or self-care (01) ==
LOC: LAB 11:51
PROVIDERS: ATTEND Nurse Practitioner Family
DX: Z00.00 Encounter for general adult medical examination without abnormal findings (principal); I10 Essential (primary) hypertension; E03.9 Hypothyroidism, unspecified
CPT/HCPCS: 36415; 80053; 80061; 84439; 84443; 85025

== ENCOUNTER 2023-03-02 12:15 | Inpatient (IN) | payer OTHER ==
[~2023-03-02] VITALS: Ht 154.9 cm; Wt 72.0 kg
[~2023-03-02 12:15] MED LIST changes: -SIMV40TA2 PO; +SIMV40TA42 PO; +TRAZ-227 PO; -TRAZ50TA2 PO
[2023-03-02 13:12] LABS: Basophils # (auto) 0 10 ^3/uL (0-0.2); Basophils % (auto) 0.8 % (0.0-2.0); Eosinophils # (auto) 0 10 ^3/uL (0-0.8); Eosinophils % (auto) 0.7 % (0.0-7.0); Hemoglobin 13.2 g/dL (12.2-16.2); Lymphocytes # (auto) 1.3 10 ^3/uL (0.4-5.4); Lymphocytes % (auto) 21.7 % (10.0-50.0); Mean Corpuscular Hemoglobin 30.6 pg (28.0-32.0); Mean Corpuscular Hgb Conc. 33.8 g/dL (32.0-36.0); Mean Corpuscular Volume 90.7 fL (80.0-100.0); Monocytes # (auto) 0.3 10 ^3/uL (0-1.3); Monocytes % (auto) 4.9 % (0.0-12.0); Neutrophils # (auto) 4.4 10 ^3/uL (1.6-8.6); Neutrophils % (auto) 71.9 % (37.0-80.0); White Blood Cell 6.1 10^3/uL (4.4-10.8)
[2023-03-02 13:31] VITALS: PULSE 72; RESP 18; O2SAT 98
[2023-03-02 13:31] LABS: INR 1.04 (0.9-1.15); Partial Thromboplastin Time 28.2 SEC (24.5-34.5)
[2023-03-02 13:36] LABS: Albumin 4.1 g/dL (3.4-5.0); Calcium 9.9 mg/dL (8.5-10.1); Magnesium 2.4 mg/dL (1.6-2.6); Potassium 4.4 mmol/L (3.5-5.1)
[2023-03-02 13:40] LABS: BUN/Creatinine Ratio 18.4 (10.0-20.0); Total Protein 7.3 g/dL (6.4-8.2)
[2023-03-02] MEDS ORDERED: IOHEXOL 350 MG/ML 100ML IJ ONE (14:47)
[2023-03-02 15:42] LABS: Urine Bacteria MOD /hpf (None Seen); Urine Blood Negative /uL (Negative); Urine Hyaline Cast FEW /lpf (0 - 2); Urine Specific Gravity 1.024 (1.001-1.035); Urine WBC 1 /hpf (0 - 5)
[2023-03-02] MEDS ORDERED: ACETAMINOPHEN 325 MG TAB PO PRN ×2 (16:45)
[2023-03-02] MEDS ORDERED: LEVO100T8 PO (17:15)
[2023-03-02] MEDS ORDERED: ALBUTEROL SULF 2.5 MG/0.5ML(0.5%) NEB SOLN NEB PRN (17:45)
[2023-03-02] MEDS ORDERED: IPRATROPIUM BROM 0.5 MG/2.5ML INH SOL NEB PRN (17:45)
[2023-03-02] MEDS ORDERED: ATORVASTATIN 20 MG TAB PO SCH ×2 (18:00)
[2023-03-02 18:04] VITALS: O2SAT 94
[2023-03-02] MEDS: HYDROcodone-ACET 5/325MG TAB PO PRN (18:15)
[2023-03-02 19:00] VITALS: BP 143/59; PULSE 72; RESP 21; O2SAT 94
[2023-03-02 19:40] VITALS: PULSE 82; RESP 25; O2SAT 95
[2023-03-02] MEDS ORDERED: MELATONIN 5 MG TAB PO SCH (22:00)
[2023-03-02] MEDS ORDERED: traZODone HCL 50 MG TAB PO SCH (22:00)
[2023-03-02] MEDS: APIXABAN 5 MG TAB PO SCH (22:08)
[2023-03-02] MEDS: PRAZOSIN HCL 1 MG CAP PO SCH (22:33)
[2023-03-03] MEDS: HYDROcodone-ACET 5/325MG TAB PO PRN (02:43)
[2023-03-03 06:00] LABS: Basophils # (auto) 0.1 10 ^3/uL (0-0.2); Eosinophils # (auto) 0.1 10 ^3/uL (0-0.8); Eosinophils % (auto) 1.2 % (0.0-7.0); Hematocrit 32.4 % (36.0-46.0); Hemoglobin 11.2 g/dL (12.2-16.2); Lymphocytes # (auto) 1.8 10 ^3/uL (0.4-5.4); Lymphocytes % (auto) 29.9 % (10.0-50.0); Mean Corpuscular Hemoglobin 30.9 pg (28.0-32.0); Mean Corpuscular Hgb Conc. 34.6 g/dL (32.0-36.0); Mean Corpuscular Volume 89.4 fL (80.0-100.0); Monocytes # (auto) 0.4 10 ^3/uL (0-1.3); Monocytes % (auto) 6.6 % (0.0-12.0); Neutrophils # (auto) 3.7 10 ^3/uL (1.6-8.6); Neutrophils % (auto) 61.3 % (37.0-80.0); Nucleated Red Blood Cells % 0.1 %; Red Blood Cells 3.63 10^6/uL (4.0-5.20); Red Cell Distribution Width 15.2 % (11.8-14.3); White Blood Cell 6.1 10^3/uL (4.4-10.8)
[2023-03-03 06:05] VITALS: O2SAT 94
[2023-03-03 06:18] LABS: Albumin 3.4 g/dL (3.4-5.0); Calcium 8.8 mg/dL (8.5-10.1); Potassium 3.7 mmol/L (3.5-5.1)
[2023-03-03 06:23] LABS: BUN/Creatinine Ratio 17.6 (10.0-20.0); Bilirubin, Total 0.8 mg/dL (0.2-1.0); Total Protein 6.4 g/dL (6.4-8.2)
[2023-03-03 08:00] VITALS: PULSE 60; RESP 16; TEMP 97.5; O2SAT 96
[2023-03-03] MEDS ORDERED: PANTOPRAZOLE 40 MG TAB PO SCH (10:00)
[2023-03-03] MEDS ORDERED: LEVOTHYROXINE SODIUM 100 MCG TAB PO SCH (10:00)
[2023-03-03] MEDS ORDERED: FLUoxetine HCL 20 MG CAP PO SCH (10:00)
[2023-03-03] MEDS ORDERED: METOPROLOL SUCCINATE XL 50 MG TAB PO SCH (10:00)
[2023-03-03] MEDS ORDERED: AMIODARONE HCL 200 MG TAB PO SCH (10:00)
[2023-03-03] MEDS: APIXABAN 5 MG TAB PO SCH (10:29)
[2023-03-03] MEDS: PRAZOSIN HCL 1 MG CAP PO SCH (10:53)
[2023-03-03 18:00] VITALS: BP 131/50; PULSE 61; RESP 14; O2SAT 94
== END 2023-03-03 18:26 | disposition home or self-care (01) | DRG 948 ==
LOC: ER 12:15 → OVERFLOW 17:03
PROVIDERS: ADMIT Internal Medicine; ATTEND Psychiatry & Neurology Neurology
DX: R53.1 Weakness (principal); I48.20 Chronic atrial fibrillation, unspecified; E78.5 Hyperlipidemia, unspecified; E03.9 Hypothyroidism, unspecified; I11.0 Hypertensive heart disease with heart failure; I50.9 Heart failure, unspecified; R60.9 Edema, unspecified; G89.29 Other chronic pain; M54.50 Low back pain, unspecified; I89.0 Lymphedema, not elsewhere classified; R79.89 Other specified abnormal findings of blood chemistry; F03.90 Unspecified dementia, unspecified severity, without behavioral disturbance, psychotic disturbance, mood disturbance, and anxiety; I65.23 Occlusion and stenosis of bilateral carotid arteries; J44.9 Chronic obstructive pulmonary disease, unspecified; Z79.899 Other long term (current) drug therapy; Z80.49 Family history of malignant neoplasm of other genital organs; I25.2 Old myocardial infarction; Z82.49 Family history of ischemic heart disease and other diseases of the circulatory system; Z90.710 Acquired absence of both cervix and uterus; Z88.5 Allergy status to narcotic agent; Z88.2 Allergy status to sulfonamides; Z88.8 Allergy status to other drugs, medicaments and biological substances; Z91.018 Allergy to other foods; Z90.49 Acquired absence of other specified parts of digestive tract; Z98.82 Breast implant status
CPT/HCPCS: 36415; 70450; 70496; 71046; 71275; 80053; 81001; 82962; 83735; 83880; 84484; 85025; 85379; 85610; 85730; 93005; 93306; 93886; 93971; 97163; G0378

== ENCOUNTER 2023-10-05 14:16 | Inpatient (IN) | payer OTHER ==
[~2023-10-05] VITALS: Ht 154.9 cm; Wt 71.5 kg
[~2023-10-05 14:16] MED LIST changes: +LEVO100T8 PO; +TRAM50TA2 PO
[2023-10-05 14:56] LABS: Basophils # (auto) 0.1 10 ^3/uL (0-0.2); Basophils % (auto) 1.2 % (0.0-2.0); Eosinophils # (auto) 0 10 ^3/uL (0-0.8); Hemoglobin 13.4 g/dL (12.2-16.2); Lymphocytes % (auto) 28.2 % (10.0-50.0); Mean Corpuscular Hemoglobin 28.7 pg (28.0-32.0); Mean Corpuscular Hgb Conc. 32.7 g/dL (32.0-36.0); Mean Corpuscular Volume 87.6 fL (80.0-100.0); Monocytes # (auto) 0.4 10 ^3/uL (0-1.3); Neutrophils # (auto) 4.6 10 ^3/uL (1.6-8.6); Neutrophils % (auto) 64.6 % (37.0-80.0); Nucleated Red Blood Cells % 0.1 %; Red Blood Cells 4.68 10^6/uL (4.0-5.20); Red Cell Distribution Width 15.3 % (11.8-14.3); White Blood Cell 7.1 10^3/uL (4.4-10.8)
[2023-10-05 15:11] LABS: INR 1.03 (0.9-1.15); Partial Thromboplastin Time 28.8 SEC (24.5-34.5); Prothrombin Time 10.8 sec (9.3-11.8)
[2023-10-05 15:15] LABS: Alanine Aminotransferase 31 U/L (7-40); Albumin 4.3 g/dL (3.2-4.8); Alkaline Phosphatase 89 U/L (46-116); Anion Gap 5 (5-15); Aspartate Aminotransferase 28 U/L (13-40); BUN/Creatinine Ratio 18.6 (10.0-20.0); Bilirubin, Total 0.9 mg/dL (0.2-1.0); Blood Urea Nitrogen 18 mg/dL (9-23); Calcium 10.2 mg/dL (8.7-10.4); Carbon Dioxide 28 mmol/L (20-30); Chloride 105 mmol/L (98-107); Glucose 105 mg/dL (74-106); Lipase 43 U/L (12-53); Sodium 138 mmol/L (136-145); Total Protein 7.3 g/dL (5.7-8.2)
[2023-10-05] MEDS ORDERED: NITROGLYCERIN 0.4 MG SL TAB SL PRN (18:30)
[2023-10-05] MEDS ORDERED: DOCUSATE SOD 100 MG CAP PO PRN (18:30)
[2023-10-05] MEDS ORDERED: ACETAMINOPHEN 325 MG TAB PO PRN (18:30)
[2023-10-05] MEDS ORDERED: MORPHINE SULFATE INJ 2 MG/ml SYRG IV PRN (18:30)
[2023-10-05 18:42] VITALS: O2SAT 98
[2023-10-05 19:22] VITALS: PULSE 82; RESP 13; O2SAT 90
[2023-10-05 19:46] LABS: Erythrocyte Sedimentation Rate 14 mm/hr (0-20)
[2023-10-05] MEDS: HYDROcodone-ACET 5/325MG TAB PO PRN (20:03)
[2023-10-05 21:14] LABS: Urine Bacteria MANY /hpf (None Seen); Urine Blood Negative /uL (Negative); Urine Clarity HAZY (Clear); Urine Color Yellow (Yellow); Urine Hyaline Cast FEW /lpf (0 - 2); Urine Mucus FEW (None Seen); Urine Protein, UAD 1+ (Negative); Urine Specific Gravity 1.024 (1.001-1.035); Urine Urobilinogen Normal (Negative); Urine WBC 30 /hpf (0 - 5)
[2023-10-05 21:15] LABS: Hematocrit 37.7 % (36.0-46.0); Hemoglobin 12.6 g/dL (12.2-16.2)
[2023-10-05] MEDS: PANTOPRAZOLE 40 MG/10 ML VIAL INJ IV SCH (21:54)
[2023-10-05] MEDS: traZODone HCL 50 MG TAB PO SCH (21:54)
[2023-10-05] MEDS: DONEPEZIL HYDROCHLORIDE 5 MG TAB PO SCH (21:54)
[2023-10-05] MEDS: ATORVASTATIN 20 MG TAB PO SCH (21:54)
[2023-10-05] MEDS: PRAZOSIN HCL 1 MG CAP PO SCH (22:22)
[2023-10-05] MEDS: cefTRIAXone 1GM/50ML D5W 50 ML IV ONE (22:24)
[2023-10-06] VITALS (9 sets, daily range): BP systolic 113–150; BP diastolic 58–77; PULSE 54–77; RESP 16–20; TEMP 97.6–98.1; O2SAT 93–98
[2023-10-06 06:00] LABS: Basophils # (auto) 0.1 10 ^3/uL (0-0.2); Basophils % (auto) 0.9 % (0.0-2.0); Eosinophils # (auto) 0 10 ^3/uL (0-0.8); Hematocrit 34.8 % (36.0-46.0); Hemoglobin 11.7 g/dL (12.2-16.2); Lymphocytes # (auto) 2.4 10 ^3/uL (0.4-5.4); Lymphocytes % (auto) 34.6 % (10.0-50.0); Mean Corpuscular Hemoglobin 29.5 pg (28.0-32.0); Mean Corpuscular Hgb Conc. 33.6 g/dL (32.0-36.0); Mean Corpuscular Volume 87.7 fL (80.0-100.0); Monocytes # (auto) 0.6 10 ^3/uL (0-1.3); Monocytes % (auto) 7.9 % (0.0-12.0); Neutrophils % (auto) 56.6 % (37.0-80.0); Nucleated Red Blood Cells % 0.1 %; Red Blood Cells 3.96 10^6/uL (4.0-5.20); Red Cell Distribution Width 15.1 % (11.8-14.3)
[2023-10-06 06:13] LABS: Alanine Aminotransferase 26 U/L (7-40); Albumin 3.7 g/dL (3.2-4.8); Alkaline Phosphatase 74 U/L (46-116); Anion Gap 5 (5-15); Aspartate Aminotransferase 26 U/L (13-40); BUN/Creatinine Ratio 18.7 (10.0-20.0); Blood Urea Nitrogen 17 mg/dL (9-23); Calcium 9.6 mg/dL (8.7-10.4); Carbon Dioxide 27 mmol/L (20-30); Chloride 108 mmol/L (98-107); Glucose 97 mg/dL (74-106); Potassium 4.3 mmol/L (3.5-5.1); Sodium 140 mmol/L (136-145)
[2023-10-06 06:14] LABS: Bilirubin, Total 0.6 mg/dL (0.2-1.0); Total Protein 6.1 g/dL (5.7-8.2)
[2023-10-06] MEDS: LEVOTHYROXINE SODIUM 100 MCG TAB PO SCH (06:38)
[2023-10-06] MEDS: cefTRIAXone 1GM/50ML D5W 50 ML IV SCH (08:49)
[2023-10-06] MEDS: METOPROLOL SUCCINATE XL 50 MG TAB PO SCH (09:13)
[2023-10-06] MEDS: AMIODARONE HCL 200 MG TAB PO SCH (09:14)
[2023-10-06] MEDS: FLUoxetine HCL 10 MG CAP PO SCH (09:14)
[2023-10-06] MEDS: MULTIPLE VITAMIN TAB PO SCH (09:14)
[2023-10-06] MEDS: GOLYTELY 4L KIT PO ONE (14:03)
[2023-10-06] MEDS: ONDANSETRON HCL 4 MG/2 ML VIAL IV PRN (21:11)
[2023-10-07] VITALS (8 sets, daily range): BP systolic 121–150; BP diastolic 65–76; PULSE 53–80; RESP 11–20; TEMP 97–98; O2SAT 93–97
[2023-10-07 05:10] LABS: Basophils # (auto) 0.1 10 ^3/uL (0-0.2); Basophils % (auto) 1.3 % (0.0-2.0); Eosinophils # (auto) 0 10 ^3/uL (0-0.8); Hematocrit 38.3 % (36.0-46.0); Hemoglobin 12.8 g/dL (12.2-16.2); Lymphocytes # (auto) 2.4 10 ^3/uL (0.4-5.4); Lymphocytes % (auto) 34.3 % (10.0-50.0); Mean Corpuscular Hemoglobin 29.4 pg (28.0-32.0); Mean Corpuscular Hgb Conc. 33.5 g/dL (32.0-36.0); Mean Corpuscular Volume 87.8 fL (80.0-100.0); Monocytes # (auto) 0.5 10 ^3/uL (0-1.3); Monocytes % (auto) 6.5 % (0.0-12.0); Neutrophils % (auto) 57.9 % (37.0-80.0); Nucleated Red Blood Cells % 0.1 %; Red Blood Cells 4.36 10^6/uL (4.0-5.20); Red Cell Distribution Width 15.1 % (11.8-14.3); White Blood Cell 6.9 10^3/uL (4.4-10.8)
[2023-10-07 05:18] LABS: Anion Gap 3 (5-15); Carbon Dioxide 30 mmol/L (20-30); Chloride 108 mmol/L (98-107); Sodium 141 mmol/L (136-145)
[2023-10-07 05:19] LABS: Calcium 9.6 mg/dL (8.7-10.4)
[2023-10-07 05:24] LABS: BUN/Creatinine Ratio 9.8 (10.0-20.0); Blood Urea Nitrogen 9 mg/dL (9-23); Glucose 98 mg/dL (74-106); Magnesium 1.7 mg/dL (1.6-2.6)
[2023-10-07] MEDS: MAGNESIUM CITRATE SOLUTION 300 ML BTL PO ONE (06:45)
[2023-10-07] MEDS: GOLYTELY 4L KIT PO ONE (06:46)
[2023-10-07] MEDS ORDERED: SODIUM CHLORIDE LOCK 10 ML ONE (08:27)
[2023-10-07] MEDS ORDERED: fentaNYL CITRATE 100 MCG/2 ML VL ONE (08:27)
[2023-10-07] MEDS ORDERED: diphenhdrAMINE HCL 50 MG/1 ML VL ONE (08:27)
[2023-10-07] MEDS ORDERED: MIDAZOLAM HCL 5 MG/ML-1ML VIAL ONE (08:27)
[2023-10-07] MEDS ORDERED: DICY10CA12 PO (09:19)
[2023-10-07] MEDS ORDERED: HYDR12.59 PO (09:24)
[2023-10-07] MEDS ORDERED: HYDR50TA69 PO (09:24)
[2023-10-07] MEDS ORDERED: PROPOFOL 10 MG/ML 20 ML IV ONE (14:51)
[2023-10-07] MEDS ORDERED: MIDAZOLAM HCL 2MG/2ML 2ml VIAL (1mg/ml) ONE (14:51)
[2023-10-07] MEDS ORDERED: ONDANSETRON HCL 4 MG/2 ML VIAL ONE (14:51)
[2023-10-07] MEDS ORDERED: GLYCOPYRROLATE 0.2 MG/ML 1ML VIAL ONE (14:51)
[2023-10-07] MEDS ORDERED: CEPH250C PO (17:08)
[2023-10-07] MEDS ORDERED: PANTOPRAZOLE 40 MG/10 ML VIAL INJ IV ONE (18:30)
[2023-10-07] MEDS ORDERED: LORazepam 2MG/ML-1ML VIAL IV PRN (18:30)
[2023-10-08 05:00] VITALS: BP 131/65; PULSE 59; RESP 17; TEMP 98.4; O2SAT 98
[2023-10-08 05:58] LABS: Basophils # (auto) 0 10 ^3/uL (0-0.2); Basophils % (auto) 0.2 % (0.0-2.0); Eosinophils # (auto) 0 10 ^3/uL (0-0.8); Hematocrit 34.4 % (36.0-46.0); Hemoglobin 11.6 g/dL (12.2-16.2); Lymphocytes # (auto) 0.7 10 ^3/uL (0.4-5.4); Lymphocytes % (auto) 13.6 % (10.0-50.0); Mean Corpuscular Hemoglobin 29.4 pg (28.0-32.0); Mean Corpuscular Hgb Conc. 33.9 g/dL (32.0-36.0); Mean Corpuscular Volume 86.9 fL (80.0-100.0); Monocytes # (auto) 0.1 10 ^3/uL (0-1.3); Monocytes % (auto) 0.9 % (0.0-12.0); Neutrophils # (auto) 4.6 10 ^3/uL (1.6-8.6); Neutrophils % (auto) 85.3 % (37.0-80.0); Red Blood Cells 3.95 10^6/uL (4.0-5.20); Red Cell Distribution Width 14.8 % (11.8-14.3); White Blood Cell 5.4 10^3/uL (4.4-10.8)
[2023-10-08 06:10] LABS: Anion Gap 5 (5-15); Carbon Dioxide 26 mmol/L (20-30); Chloride 107 mmol/L (98-107); Sodium 138 mmol/L (136-145)
[2023-10-08 06:11] LABS: Calcium 9.1 mg/dL (8.5-10.1)
[2023-10-08 06:16] LABS: Blood Urea Nitrogen 10 mg/dL (9-23); Glucose 124 mg/dL (74-106)
[2023-10-08 08:00] VITALS: PULSE 40; PULSE 50; RESP 16; O2SAT 97
[2023-10-08 08:31] VITALS: BP 130/56; PULSE 50; RESP 16; TEMP 98.9; O2SAT 97
[2023-10-08] MEDS ORDERED: PANTOPRAZOLE 40 MG/10 ML VIAL INJ IV SCH (10:00)
[2023-10-08] MEDS: DICYCLOMINE HCL 10 MG CAP PO PRN (11:38)
[2023-10-08 12:33] VITALS: BP 128/88; PULSE 50; RESP 16; TEMP 98.2; O2SAT 92
[2023-10-08 16:48] VITALS: BP 103/49; PULSE 58; RESP 16; TEMP 98.4; O2SAT 92
[2023-10-08] MEDS: LOPERAMIDE HCL 2 MG CAP/TAB PO ONE (16:48)
[2023-10-08] MEDS: ALPRAZolam 0.25 MG TAB PO ONE (16:48)
[2023-10-08 17:09] VITALS: BP 130/56; PULSE 50; TEMP 36.9
== END 2023-10-08 18:30 | disposition home or self-care (01) | DRG 690 ==
LOC: ER 14:16 → TELE 18:25 → TELE-WESTW 10-06 02:03
PROVIDERS: ADMIT Nurse Practitioner Family; ATTEND Internal Medicine
PROC: 0DJD8ZZ Inspection of Lower Intestinal Tract, Via Natural or Artificial Opening Endoscopic (ICD-10-PCS; principal; 2023-10-07 14:55)
DX: N30.00 Acute cystitis without hematuria (principal); K51.90 Ulcerative colitis, unspecified, without complications; Q43.8 Other specified congenital malformations of intestine; I11.0 Hypertensive heart disease with heart failure; I48.91 Unspecified atrial fibrillation; E78.5 Hyperlipidemia, unspecified; J43.9 Emphysema, unspecified; E03.9 Hypothyroidism, unspecified; E86.0 Dehydration; G89.29 Other chronic pain; K64.8 Other hemorrhoids; R13.10 Dysphagia, unspecified; I50.9 Heart failure, unspecified; F03.90 Unspecified dementia, unspecified severity, without behavioral disturbance, psychotic disturbance, mood disturbance, and anxiety; Z96.652 Presence of left artificial knee joint; I25.2 Old myocardial infarction; Z91.013 Allergy to seafood; Z91.011 Allergy to milk products; Z88.2 Allergy status to sulfonamides; Z88.8 Allergy status to other drugs, medicaments and biological substances
CPT/HCPCS: 36415; 71045; 74176; 80048; 80053; 81001; 82270; 83690; 83735; 85014; 85018; 85025; 85048; 85610; 85652; 85730; 86141; 86803; 86850; 86900; 86901; 87086; 87177; 87340; 93005; 96365; C9113; G0378; J2250; J2405; J2704

== ENCOUNTER 2023-12-18 13:31 | Inpatient (IN) | payer OTHER ==
[~2023-12-18] VITALS: Ht 157.5 cm; Wt 60.3 kg
[~2023-12-18 13:31] MED LIST changes: +CEPH250C PO; -DICY10CA12 PO; +HYDR12.59 PO; +HYDR50TA69 PO; -TRAM50TA2 PO
[2023-12-18 14:00] VITALS: PULSE 71; RESP 18; O2SAT 100
[2023-12-18] MEDS: SODIUM CHLORIDE 0.9% 500 ML IV ONE (14:40)
[2023-12-18 15:05] LABS: Basophils # (auto) 0.1 10 ^3/uL (0-0.2); Basophils % (auto) 1.1 % (0.0-2.0); Eosinophils # (auto) 0 10 ^3/uL (0-0.8); Hematocrit 38.2 % (36.0-46.0); Hemoglobin 12.7 g/dL (12.2-16.2); Lymphocytes # (auto) 1.6 10 ^3/uL (0.4-5.4); Lymphocytes % (auto) 23.1 % (10.0-50.0); Mean Corpuscular Hemoglobin 29.1 pg (28.0-32.0); Mean Corpuscular Hgb Conc. 33.4 g/dL (32.0-36.0); Mean Corpuscular Volume 87.2 fL (80.0-100.0); Monocytes # (auto) 0.6 10 ^3/uL (0-1.3); Monocytes % (auto) 8.4 % (0.0-12.0); Neutrophils # (auto) 4.6 10 ^3/uL (1.6-8.6); Neutrophils % (auto) 67.4 % (37.0-80.0); Nucleated Red Blood Cells % 0.4 %; Red Blood Cells 4.38 10^6/uL (4.0-5.20); Red Cell Distribution Width 15.6 % (11.8-14.3); White Blood Cell 6.8 10^3/uL (4.4-10.8)
[2023-12-18 15:19] LABS: INR 0.99 (0.9-1.15); Partial Thromboplastin Time 27.1 SEC (24.5-34.5); Prothrombin Time 10.5 sec (9.3-11.8)
[2023-12-18 15:23] LABS: Alanine Aminotransferase 30 U/L (7-40); Albumin 4.1 g/dL (3.2-4.8); Alkaline Phosphatase 108 U/L (46-116); Anion Gap 8 (5-15); Aspartate Aminotransferase 34 U/L (13-40); BUN/Creatinine Ratio 14.3 (10.0-20.0); Blood Urea Nitrogen 16 mg/dL (9-23); Carbon Dioxide 25 mmol/L (20-30); Chloride 105 mmol/L (98-107); Glucose 162 mg/dL (74-106); Lipase 31 U/L (12-53); Magnesium 1.9 mg/dL (1.6-2.6); Potassium 3.9 mmol/L (3.5-5.1); Sodium 138 mmol/L (136-145)
[2023-12-18 15:24] LABS: Bilirubin, Total 1.3 mg/dL (0.2-1.0); Total Protein 6.9 g/dL (5.7-8.2)
[2023-12-18] MEDS: IOHEXOL 300 MG/ML 100ML BOTTLE IJ ONE (18:34)
[2023-12-18] MEDS: SODIUM CHLORIDE 0.9% 500 ML IVB ONE (18:37)
[2023-12-18] MEDS: SODIUM CHLORIDE 0.9% 1,000 ML IV ONE (18:38)
[2023-12-18] MEDS ORDERED: DOCUSATE SOD 100 MG CAP PO PRN (19:15)
[2023-12-18] MEDS: SODIUM CHLORIDE 0.9% 1,000 ML IV SCH (19:38)
[2023-12-18 19:45] VITALS: O2SAT 94
[2023-12-18] MEDS ORDERED: NITROGLYCERIN 0.4 MG SL TAB SL PRN (20:00)
[2023-12-18] MEDS: ACETAMINOPHEN 325 MG TAB PO PRN (21:25)
[2023-12-18] MEDS: PANTOPRAZOLE 40 MG/10 ML VIAL INJ IV SCH (21:43)
[2023-12-18] MEDS: DONEPEZIL HYDROCHLORIDE 5 MG TAB PO SCH (21:43)
[2023-12-19] VITALS (12 sets, daily range): BP systolic 129–153; BP diastolic 75–89; PULSE 62–98; RESP 16–19; TEMP 97.5–98.7; O2SAT 95–99
[2023-12-19] MEDS: LEVOTHYROXINE SODIUM 100 MCG TAB PO SCH (05:50)
[2023-12-19 06:31] LABS: Basophils # (auto) 0.1 10 ^3/uL (0-0.2); Basophils % (auto) 0.9 % (0.0-2.0); Eosinophils # (auto) 0 10 ^3/uL (0-0.8); Hematocrit 30.8 % (36.0-46.0); Hemoglobin 10.5 g/dL (12.2-16.2); Lymphocytes % (auto) 29.1 % (10.0-50.0); Mean Corpuscular Hemoglobin 29.8 pg (28.0-32.0); Mean Corpuscular Volume 87.7 fL (80.0-100.0); Monocytes # (auto) 0.7 10 ^3/uL (0-1.3); Monocytes % (auto) 9.9 % (0.0-12.0); Neutrophils # (auto) 4.1 10 ^3/uL (1.6-8.6); Neutrophils % (auto) 60.1 % (37.0-80.0); Red Blood Cells 3.51 10^6/uL (4.0-5.20); Red Cell Distribution Width 15.7 % (11.8-14.3); White Blood Cell 6.8 10^3/uL (4.4-10.8)
[2023-12-19 06:54] LABS: Alanine Aminotransferase 22 U/L (7-40); Albumin 3.5 g/dL (3.2-4.8); Alkaline Phosphatase 83 U/L (46-116); Anion Gap 5 (5-15); BUN/Creatinine Ratio 16.7 (10.0-20.0); Bilirubin, Total 0.8 mg/dL (0.2-1.0); Blood Urea Nitrogen 16 mg/dL (9-23); Calcium 9.1 mg/dL (8.5-10.1); Carbon Dioxide 26 mmol/L (20-30); Chloride 109 mmol/L (98-107); Glucose 91 mg/dL (74-106); Potassium 3.8 mmol/L (3.5-5.1); Sodium 140 mmol/L (136-145); Total Protein 5.7 g/dL (5.7-8.2)
[2023-12-19 07:17] LABS: Aspartate Aminotransferase 29 U/L (13-40)
[2023-12-19] MEDS: MULTIPLE VITAMIN TAB PO SCH (08:33)
[2023-12-19 08:51] LABS: Urine Bacteria None Seen /hpf (None Seen)
[2023-12-19 09:06] LABS: Urine Blood Negative /uL (Negative); Urine Clarity Clear (Clear); Urine Color Light-Yellow (Yellow); Urine Protein, UAD Negative (Negative); Urine Specific Gravity 1.025 (1.001-1.035); Urine Urobilinogen Normal (Negative); Urine WBC 2 /hpf (0 - 5); Urine pH 5.5 (5.0-9.0)
[2023-12-19] MEDS ORDERED: LEVOTHYROXINE SODIUM 100 MCG TAB PO SCH (12:58)
[2023-12-19] MEDS ORDERED: MULTIPLE VITAMIN TAB PO SCH (12:59)
[2023-12-19] MEDS ORDERED: OMNIPAQUE 12mg/ml 500ml ORAL SOLUTION PO ONE (14:10)
[2023-12-19] MEDS: AMIODARONE HCL 200 MG TAB PO SCH (14:24)
[2023-12-19] MEDS: METOPROLOL SUCCINATE XL 50 MG TAB PO SCH (14:24)
[2023-12-19] MEDS: guaiFENesin-DM 100/10mg/5ml SYR PO PRN (15:17)
[2023-12-19] MEDS: hydrOXYzine 25 MG TAB or CAP PO SCH (15:17)
[2023-12-19] MEDS: ALBUTEROL SULF 2.5 MG/0.5ML(0.5%) NEB SOLN NEB PRN (20:09)
[2023-12-19] MEDS ORDERED: DONEPEZIL HYDROCHLORIDE 5 MG TAB PO SCH (22:00)
[2023-12-19] MEDS: OXcarbazepine 300 MG TAB PO SCH (22:50)
[2023-12-19] MEDS: ATORVASTATIN 20 MG TAB PO SCH (22:50)
[2023-12-19] MEDS: RANOLAZINE ER 500 MG TAB PO SCH (22:50)
[2023-12-19] MEDS: MESALAMINE 400mg Delayed Release Cap PO SCH (22:51)
[2023-12-20 05:00] VITALS: BP 155/63; PULSE 70; RESP 16; TEMP 98.2; O2SAT 92
[2023-12-20 06:15] LABS: Basophils # (auto) 0.1 10 ^3/uL (0-0.2); Eosinophils # (auto) 0 10 ^3/uL (0-0.8); Hematocrit 34.4 % (36.0-46.0); Hemoglobin 11.5 g/dL (12.2-16.2); Lymphocytes # (auto) 1.5 10 ^3/uL (0.4-5.4); Lymphocytes % (auto) 20.4 % (10.0-50.0); Mean Corpuscular Hemoglobin 29.3 pg (28.0-32.0); Mean Corpuscular Hgb Conc. 33.4 g/dL (32.0-36.0); Mean Corpuscular Volume 87.6 fL (80.0-100.0); Monocytes # (auto) 0.6 10 ^3/uL (0-1.3); Monocytes % (auto) 8.4 % (0.0-12.0); Neutrophils # (auto) 5.1 10 ^3/uL (1.6-8.6); Neutrophils % (auto) 70.2 % (37.0-80.0); Nucleated Red Blood Cells % 0.1 %; Red Blood Cells 3.92 10^6/uL (4.0-5.20); Red Cell Distribution Width 15.6 % (11.8-14.3); White Blood Cell 7.3 10^3/uL (4.4-10.8)
[2023-12-20 06:31] LABS: Calcium 9.5 mg/dL (8.7-10.4); Chloride 106 mmol/L (98-107); Potassium 3.9 mmol/L (3.5-5.1); Sodium 138 mmol/L (136-145)
[2023-12-20 06:32] LABS: Anion Gap 6 (5-15); Carbon Dioxide 26 mmol/L (20-30)
[2023-12-20 06:38] LABS: BUN/Creatinine Ratio 10.5 (10.0-20.0); Blood Urea Nitrogen 9 mg/dL (9-23); Glucose 90 mg/dL (74-106); Magnesium 1.7 mg/dL (1.6-2.6)
[2023-12-20 08:00] VITALS: PULSE 63
[2023-12-20 09:12] VITALS: BP 123/83; PULSE 73; RESP 18; TEMP 98.3; O2SAT 95
[2023-12-20] MEDS: FLUoxetine HCL 20 MG CAP PO SCH (09:44)
[2023-12-20] MEDS: predniSONE 20 MG TAB PO SCH (09:44)
[2023-12-20] MEDS: hydroCHLOROthiazide 25 MG TAB PO SCH (09:45)
[2023-12-20 10:00] VITALS: O2SAT 98
[2023-12-20] MEDS: ONDANSETRON HCL 4 MG/2 ML VIAL IV PRN (10:12)
[2023-12-20 13:18] VITALS: BP 105/54; PULSE 71; RESP 19; TEMP 98.1; O2SAT 97
[2023-12-20 14:35] VITALS: O2SAT 96
== END 2023-12-20 16:15 | disposition home or self-care (01) | DRG 378 ==
LOC: ER 13:31 → TELE 19:53 → TELE-EAST 23:17
PROVIDERS: ADMIT Nurse Practitioner Family; ATTEND Nurse Practitioner Family
DX: K92.2 Gastrointestinal hemorrhage, unspecified (principal); I13.0 Hypertensive heart and chronic kidney disease with heart failure and stage 1 through stage 4 chronic kidney disease, or unspecified chronic kidney disease; I50.32 Chronic diastolic (congestive) heart failure; I95.9 Hypotension, unspecified; E78.5 Hyperlipidemia, unspecified; E03.9 Hypothyroidism, unspecified; E11.22 Type 2 diabetes mellitus with diabetic chronic kidney disease; F03.90 Unspecified dementia, unspecified severity, without behavioral disturbance, psychotic disturbance, mood disturbance, and anxiety; I25.10 Atherosclerotic heart disease of native coronary artery without angina pectoris; N18.31 Chronic kidney disease, stage 3a; Z79.01 Long term (current) use of anticoagulants; I25.2 Old myocardial infarction; Z80.49 Family history of malignant neoplasm of other genital organs; Z82.49 Family history of ischemic heart disease and other diseases of the circulatory system; Z90.710 Acquired absence of both cervix and uterus; Z88.2 Allergy status to sulfonamides; Z88.8 Allergy status to other drugs, medicaments and biological substances; Z91.013 Allergy to seafood; Z91.011 Allergy to milk products; I48.0 Paroxysmal atrial fibrillation
CPT/HCPCS: 36415; 71045; 74176; 74177; 80048; 80053; 81001; 82270; 83036; 83690; 83735; 83986; 84443; 84484; 85025; 85048; 85610; 85730; 86850; 86900; 86901; 86920; 87045; 87427; 87493; 94640; 96360; 96361; C9113; G0378; J2405

== ENCOUNTER 2024-01-03 16:45 | Inpatient (IN) | payer OTHER ==
[~2024-01-03] VITALS: Ht 165.1 cm; Wt 72.9 kg
[~2024-01-03 16:45] MED LIST changes: -APIX5TAB PO; -CEPH250C PO
[2024-01-03 17:20] VITALS: PULSE 100; RESP 19; O2SAT 95
[2024-01-03 17:38] LABS: Basophils # (auto) 0.1 10 ^3/uL (0-0.2); Basophils % (auto) 0.9 % (0.0-2.0); Eosinophils # (auto) 0 10 ^3/uL (0-0.8); Hematocrit 39.2 % (36.0-46.0); Hemoglobin 13.4 g/dL (12.2-16.2); Lymphocytes # (auto) 1.5 10 ^3/uL (0.4-5.4); Lymphocytes % (auto) 19.2 % (10.0-50.0); Mean Corpuscular Hemoglobin 29.5 pg (28.0-32.0); Mean Corpuscular Hgb Conc. 34.2 g/dL (32.0-36.0); Mean Corpuscular Volume 86.3 fL (80.0-100.0); Monocytes # (auto) 0.3 10 ^3/uL (0-1.3); Monocytes % (auto) 4.4 % (0.0-12.0); Neutrophils % (auto) 75.5 % (37.0-80.0); Nucleated Red Blood Cells % 0.2 %; Red Blood Cells 4.55 10^6/uL (4.0-5.20); Red Cell Distribution Width 15.9 % (11.8-14.3)
[2024-01-03 17:39] LABS: Alanine Aminotransferase 37 U/L (7-40); Alkaline Phosphatase 97 U/L (46-116); Anion Gap 6 (5-15); Aspartate Aminotransferase 34 U/L (13-40); BUN/Creatinine Ratio 19.4 (10.0-20.0); Blood Urea Nitrogen 21 mg/dL (9-23); Carbon Dioxide 28 mmol/L (20-30); Chloride 105 mmol/L (98-107); Glucose 140 mg/dL (74-106); Magnesium 1.5 mg/dL (1.6-2.6); Potassium 3.7 mmol/L (3.5-5.1); Sodium 139 mmol/L (136-145)
[2024-01-03 17:40] LABS: Albumin 4.1 g/dL (3.2-4.8); Bilirubin, Total 0.8 mg/dL (0.2-1.0); Total Protein 6.7 g/dL (5.7-8.2)
[2024-01-03 17:46] LABS: INR 1.01 (0.9-1.15); Partial Thromboplastin Time 25.4 SEC (24.5-34.5); Prothrombin Time 10.7 sec (9.3-11.8)
[2024-01-03] MEDS ORDERED: dilTIAZem 25 MG/5 ML VIAL IV ONE (18:00)
[2024-01-03] MEDS: MAGNESIUM SULFATE 1GM/100ML 100 ML IV SCH (18:41)
[2024-01-03] MEDS ORDERED: MORPHINE SULFATE INJ 2 MG/ml SYRG IV PRN (18:45)
[2024-01-03] MEDS ORDERED: NITROGLYCERIN 0.4 MG SL TAB SL PRN (18:45)
[2024-01-03] MEDS ORDERED: ALBUTEROL SULF 2.5 MG/0.5ML(0.5%) NEB SOLN NEB PRN (18:45)
[2024-01-03] MEDS ORDERED: DOCUSATE SOD 100 MG CAP PO PRN (19:00)
[2024-01-03 20:35] LABS: COVID19 ANTIGEN SOFIA FIA NEGATIVE (NEGATIVE); Rapid Influenza A Negative (Negative); Rapid Influenza B Negative (Negative)
[2024-01-03] MEDS: ALBUTEROL SULF 2.5 MG/0.5ML(0.5%) NEB SOLN NEB SCH (21:35)
[2024-01-03] MEDS: IPRATROPIUM BROM 0.5 MG/2.5ML INH SOL NEB SCH (21:36)
[2024-01-03 21:59] VITALS: PULSE 76; RESP 18; O2SAT 96
[2024-01-03 22:01] VITALS: BP 118/66; PULSE 76; RESP 18; TEMP 97.9; O2SAT 96
[2024-01-03 22:06] VITALS: PULSE 78; RESP 18; O2SAT 98
[2024-01-03] MEDS: traMADol HCL 50 MG TAB PO SCH (22:43)
[2024-01-03] MEDS: RANOLAZINE ER 500 MG TAB PO SCH (22:43)
[2024-01-03] MEDS: OXcarbazepine 300 MG TAB PO SCH (22:43)
[2024-01-03] MEDS: DONEPEZIL HYDROCHLORIDE 5 MG TAB PO SCH (22:43)
[2024-01-04] VITALS (21 sets, daily range): BP systolic 89–148; BP diastolic 47–65; PULSE 58–75; RESP 16–20; TEMP 97.5–98.4; O2SAT 95–100
[2024-01-04] MEDS: PRAZOSIN HCL 1 MG CAP PO SCH (00:42)
[2024-01-04] MEDS: MELATONIN 5 MG TAB PO ONE (01:26)
[2024-01-04] MEDS: guaiFENesin-DM 100/10mg/5ml SYR PO PRN (01:26)
[2024-01-04] MEDS: HYDROcodone-ACET 5/325MG TAB PO PRN (01:28)
[2024-01-04 05:59] LABS: Basophils # (auto) 0.1 10 ^3/uL (0-0.2); Eosinophils # (auto) 0 10 ^3/uL (0-0.8); Hematocrit 33.5 % (36.0-46.0); Hemoglobin 11.2 g/dL (12.2-16.2); Lymphocytes # (auto) 1.8 10 ^3/uL (0.4-5.4); Mean Corpuscular Hemoglobin 29.7 pg (28.0-32.0); Mean Corpuscular Hgb Conc. 33.4 g/dL (32.0-36.0); Mean Corpuscular Volume 88.9 fL (80.0-100.0); Monocytes # (auto) 0.5 10 ^3/uL (0-1.3); Monocytes % (auto) 6.6 % (0.0-12.0); Neutrophils # (auto) 5.8 10 ^3/uL (1.6-8.6); Neutrophils % (auto) 70.4 % (37.0-80.0); Nucleated Red Blood Cells % 0.2 %; Red Blood Cells 3.77 10^6/uL (4.0-5.20); Red Cell Distribution Width 15.8 % (11.8-14.3); White Blood Cell 8.2 10^3/uL (4.4-10.8)
[2024-01-04 06:25] LABS: Alanine Aminotransferase 30 U/L (7-40); Albumin 3.6 g/dL (3.2-4.8); Alkaline Phosphatase 85 U/L (46-116); Anion Gap 4 (5-15); Aspartate Aminotransferase 34 U/L (13-40); Bilirubin, Total 0.7 mg/dL (0.2-1.0); Blood Urea Nitrogen 15 mg/dL (9-23); Calcium 9.4 mg/dL (8.5-10.1); Carbon Dioxide 28 mmol/L (20-30); Chloride 105 mmol/L (98-107); Glucose 94 mg/dL (74-106); Potassium 3.7 mmol/L (3.5-5.1); Sodium 137 mmol/L (136-145)
[2024-01-04 06:26] LABS: Total Protein 6.1 g/dL (5.7-8.2)
[2024-01-04] MEDS ORDERED: PATIENTS OWN MEDICATION (Hydrochlorothiazide 1 CAP) PO SCH (10:00)
[2024-01-04] MEDS ORDERED: FLUOXETINE HCL PO SCH (10:00)
[2024-01-04] MEDS: ENOXAPARIN SOD 40 MG/0.4 ML SYRINGE SC SCH (10:09)
[2024-01-04] MEDS: ASPirin-EC 81 mg tab PO SCH (10:09)
[2024-01-04] MEDS: LEVOTHYROXINE SODIUM 100 MCG TAB PO SCH (10:10)
[2024-01-04] MEDS: FLUoxetine HCL 20 MG CAP PO SCH (10:10)
[2024-01-04] MEDS: AMIODARONE HCL 200 MG TAB PO SCH (10:11)
[2024-01-04] MEDS: hydroCHLOROthiazide 25 MG TAB PO SCH (10:11)
[2024-01-04] MEDS: MULTIPLE VITAMIN TAB PO SCH (10:11)
[2024-01-04] MEDS: hydrOXYzine 25 MG TAB or CAP PO SCH (10:11)
[2024-01-04] MEDS: METOPROLOL SUCCINATE XL 50 MG TAB PO SCH (10:12)
[2024-01-04] MEDS: ACETAMINOPHEN 325 MG TAB PO PRN (10:23)
[2024-01-04] MEDS ORDERED: SIMVASTATIN PO SCH (18:00)
[2024-01-04] MEDS: methylPREDNISolone SOD SUCC 40 MG/ML VL IV SCH (21:57)
[2024-01-04] MEDS: ATORVASTATIN 20 MG TAB PO SCH (21:59)
[2024-01-05] VITALS (19 sets, daily range): BP systolic 96–134; BP diastolic 44–71; PULSE 60–88; RESP 15–20; TEMP 97.5–98.2; O2SAT 93–100
[2024-01-05 06:33] LABS: Basophils # (auto) 0 10 ^3/uL (0-0.2); Basophils % (auto) 0.2 % (0.0-2.0); Eosinophils # (auto) 0 10 ^3/uL (0-0.8); Hematocrit 35.3 % (36.0-46.0); Hemoglobin 11.9 g/dL (12.2-16.2); Lymphocytes # (auto) 0.5 10 ^3/uL (0.4-5.4); Mean Corpuscular Hemoglobin 29.6 pg (28.0-32.0); Mean Corpuscular Hgb Conc. 33.6 g/dL (32.0-36.0); Monocytes # (auto) 0 10 ^3/uL (0-1.3); Monocytes % (auto) 0.5 % (0.0-12.0); Neutrophils # (auto) 4.6 10 ^3/uL (1.6-8.6); Neutrophils % (auto) 90.3 % (37.0-80.0); Nucleated Red Blood Cells % 0.1 %; Red Blood Cells 4.01 10^6/uL (4.0-5.20); Red Cell Distribution Width 15.8 % (11.8-14.3); White Blood Cell 5.1 10^3/uL (4.4-10.8)
[2024-01-05 06:49] LABS: Alanine Aminotransferase 33 U/L (7-40); Albumin 4.1 g/dL (3.2-4.8); Alkaline Phosphatase 92 U/L (46-116); Anion Gap 7 (5-15); Aspartate Aminotransferase 37 U/L (13-40); BUN/Creatinine Ratio 17.2 (10.0-20.0); Blood Urea Nitrogen 20 mg/dL (9-23); Calcium 9.4 mg/dL (8.7-10.4); Carbon Dioxide 25 mmol/L (20-30); Chloride 100 mmol/L (98-107); Glucose 161 mg/dL (74-106); Potassium 4.3 mmol/L (3.5-5.1)
[2024-01-05 06:50] LABS: Bilirubin, Total 0.7 mg/dL (0.2-1.0)
[2024-01-05 07:00] LABS: Sodium 132 mmol/L (136-145)
[2024-01-05] MEDS ORDERED: DICY10CA PO (15:56)
[2024-01-05] MEDS ORDERED: APIX5TAB PO (15:56)
[2024-01-05] MEDS: ALBUTEROL SULF 2.5 MG/0.5ML(0.5%) NEB SOLN NEB SCH ×2 (19:30→23:21)
[2024-01-05] MEDS: IPRATROPIUM BROM 0.5 MG/2.5ML INH SOL NEB SCH (23:21)
[2024-01-06] VITALS (11 sets, daily range): BP systolic 98–124; BP diastolic 57–80; PULSE 63–87; RESP 16–20; TEMP 97.8–98.1; O2SAT 94–98
[2024-01-06] MEDS: IOHEXOL 350 MG/ML 100ML IJ ONE ×2 (06:50)
[2024-01-06 06:59] LABS: Calcium 9.4 mg/dL (8.5-10.1); Chloride 94 mmol/L (98-107); Potassium 4.3 mmol/L (3.5-5.1); Sodium 128 mmol/L (136-145)
[2024-01-06 07:00] LABS: Anion Gap 8 (5-15); Carbon Dioxide 26 mmol/L (20-30)
[2024-01-06 07:05] LABS: BUN/Creatinine Ratio 24.1 (10.0-20.0); Blood Urea Nitrogen 26 mg/dL (9-23); Glucose 156 mg/dL (74-106)
[2024-01-06] MEDS: ENOXAPARIN SOD 40 MG/0.4 ML SYRINGE SC SCH (09:24)
[2024-01-06] MEDS ORDERED: DOXY-286 PO (13:10)
[2024-01-06] MEDS ORDERED: PRED20TA2 PO (13:10)
[2024-01-06] MEDS ORDERED: PANT40T PO (13:10)
[2024-01-06] MEDS: ONDANSETRON HCL 4 MG/2 ML VIAL IV ONE (14:45)
[2024-01-07] MEDS ORDERED: methylPREDNISolone SOD SUCC 40 MG/ML VL IV SCH (10:00)
== END 2024-01-06 16:15 | disposition home or self-care (01) | DRG 191 ==
LOC: ER 16:45 → TELE 18:41 → TELE-EAST 23:50 → EAST 01-04 12:45
PROVIDERS: ADMIT Internal Medicine; ATTEND Emergency Medicine
DX: J44.1 Chronic obstructive pulmonary disease with (acute) exacerbation (principal); I50.40 Unspecified combined systolic (congestive) and diastolic (congestive) heart failure; I11.0 Hypertensive heart disease with heart failure; E03.9 Hypothyroidism, unspecified; E83.42 Hypomagnesemia; E78.5 Hyperlipidemia, unspecified; F03.90 Unspecified dementia, unspecified severity, without behavioral disturbance, psychotic disturbance, mood disturbance, and anxiety; Z20.822 Contact with and (suspected) exposure to COVID-19; I48.91 Unspecified atrial fibrillation; Z90.710 Acquired absence of both cervix and uterus; Z90.49 Acquired absence of other specified parts of digestive tract; Z82.49 Family history of ischemic heart disease and other diseases of the circulatory system; Z88.2 Allergy status to sulfonamides; Z88.8 Allergy status to other drugs, medicaments and biological substances; Z88.5 Allergy status to narcotic agent; Z91.013 Allergy to seafood; Z79.899 Other long term (current) drug therapy
CPT/HCPCS: 36415; 71045; 71275; 80048; 80053; 83735; 83880; 84484; 85025; 85379; 85610; 85730; 87081; 87426; 87804; 93005; 94640; 96365; 96366; 97110; 97116; 97163; 97530; 99291; G0378; J2405

== ENCOUNTER → 2024-05-12 | Outpatient (CLI) | payer OTHER ==
[~2024-05-12] MED LIST changes: +ALBUTEROL SULF 2.5 MG/0.5ML(0.5%) NEB SOLN ONE; +APIX5TAB PO; +DICY10CA PO; +DOXY-286 PO; +PANT40T PO; -PRA1C PO; +PRAZ1CAP2 PO; +PRED20TA2 PO
== END | disposition home or self-care (01) ==
LOC: RT 10:48
PROVIDERS: ATTEND Internal Medicine Pulmonary Disease
DX: R06.02 Shortness of breath (principal); R06.09 Other forms of dyspnea; R06.2 Wheezing
CPT/HCPCS: 94060; 94727; 94729

== ENCOUNTER 2024-05-25 14:54 | Inpatient (IN) | payer OTHER ==
[~2024-05-25] VITALS: Ht 162.6 cm; Wt 60.3 kg
[~2024-05-25 14:54] MED LIST changes: -ALBUTEROL SULF 2.5 MG/0.5ML(0.5%) NEB SOLN ONE
[2024-05-25 15:41] LABS: Basophils # (auto) 0.1 10 ^3/uL (0-0.2); Basophils % (auto) 0.5 % (0.0-2.0); Eosinophils # (auto) 0 10 ^3/uL (0-0.8); Hemoglobin 13.3 g/dL (12.2-16.2); Lymphocytes # (auto) 1.4 10 ^3/uL (0.4-5.4); Lymphocytes % (auto) 13.5 % (10.0-50.0); Mean Corpuscular Hemoglobin 31.6 pg (28.0-32.0); Mean Corpuscular Volume 92.9 fL (80.0-100.0); Monocytes # (auto) 0.6 10 ^3/uL (0-1.3); Monocytes % (auto) 5.7 % (0.0-12.0); Neutrophils # (auto) 8.1 10 ^3/uL (1.6-8.6); Neutrophils % (auto) 80.3 % (37.0-80.0); Nucleated Red Blood Cells % 0.1 %; Platelet Count (auto) 190 10^3/uL (140-450); Red Cell Distribution Width 13.6 % (11.8-14.3); White Blood Cell 10.1 10^3/uL (4.4-10.8)
[2024-05-25 15:44] LABS: Chloride 107 mmol/L (98-107); Potassium 4.3 mmol/L (3.5-5.1); Sodium 140 mmol/L (136-145)
[2024-05-25 15:45] LABS: Anion Gap 5 (5-15); Calcium 9.9 mg/dL (8.7-10.4); Carbon Dioxide 28 mmol/L (20-31)
[2024-05-25 15:50] LABS: Blood Urea Nitrogen 15 mg/dL (9-23); Glucose 102 mg/dL (74-106)
[2024-05-25 16:10] VITALS: PULSE 77; RESP 22; O2SAT 97
[2024-05-25] MEDS: SODIUM CHLORIDE 0.9% 500 ML IV ONE (16:31)
[2024-05-25] MEDS: PANTOPRAZOLE 40 MG/10 ML VIAL INJ IV ONE (16:31)
[2024-05-25 16:33] LABS: INR 0.98 (0.9-1.15); Partial Thromboplastin Time 24.2 SEC (24.5-34.5); Prothrombin Time 10.4 sec (9.3-11.8)
[2024-05-25 17:23] LABS: Alkaline Phosphatase 76 U/L (46-116)
[2024-05-25 17:25] LABS: Alanine Aminotransferase 33 U/L (7-40); Albumin 4.1 g/dL (3.2-4.8); Aspartate Aminotransferase 30 U/L (13-40); Bilirubin, Total 0.6 mg/dL (0.2-1.0); Total Protein 6.9 g/dL (5.7-8.2)
[2024-05-25 19:50] VITALS: PULSE 75; RESP 14; O2SAT 95
[2024-05-25] MEDS: FUROSEMIDE 20 MG/2 ML VIAL IV ONE (20:39)
[2024-05-25] MEDS ORDERED: DOCUSATE SOD 100 MG CAP PO PRN (20:45)
[2024-05-25] MEDS ORDERED: MORPHINE SULFATE INJ 2 MG/ml SYRG IV PRN (20:45)
[2024-05-25] MEDS ORDERED: NITROGLYCERIN 0.4 MG SL TAB SL PRN (20:45)
[2024-05-25] MEDS ORDERED: ONDANSETRON HCL 4 MG/2 ML VIAL IV PRN (20:45)
[2024-05-25 21:03] VITALS: BP 137/74; PULSE 75; RESP 20; O2SAT 96
[2024-05-25 21:31] LABS: Urine Bacteria FEW /hpf (None Seen); Urine Blood Negative /uL (Negative); Urine Clarity Clear (Clear); Urine Color Light-Yellow (Yellow); Urine Protein, UAD Negative (Negative); Urine Urobilinogen Normal (Negative); Urine WBC 35 /hpf (0 - 5)
[2024-05-25] MEDS: PRAZOSIN HCL 1 MG CAP PO SCH (22:00)
[2024-05-25] MEDS: SODIUM CHLOR 0.9% PF (SALINE LOCK) 10ML VIAL/SYR IV SCH (22:02)
[2024-05-25] MEDS: APIXABAN 5 MG TAB PO SCH (22:51)
[2024-05-26] VITALS (9 sets, daily range): BP systolic 103–135; BP diastolic 50–70; PULSE 49–88; RESP 16–18; TEMP 97.6–99; O2SAT 91–96
[2024-05-26] MEDS: LEVOTHYROXINE SODIUM 100 MCG TAB PO SCH (05:46)
[2024-05-26 06:55] LABS: Basophils # (auto) 0 10 ^3/uL (0-0.2); Basophils % (auto) 0.2 % (0.0-2.0); Eosinophils # (auto) 0 10 ^3/uL (0-0.8); Hematocrit 39.4 % (36.0-46.0); Hemoglobin 13.4 g/dL (12.2-16.2); Lymphocytes # (auto) 1.9 10 ^3/uL (0.4-5.4); Lymphocytes % (auto) 21.5 % (10.0-50.0); Mean Corpuscular Hemoglobin 31.5 pg (28.0-32.0); Mean Corpuscular Volume 92.5 fL (80.0-100.0); Monocytes # (auto) 0.5 10 ^3/uL (0-1.3); Monocytes % (auto) 5.7 % (0.0-12.0); Neutrophils # (auto) 6.4 10 ^3/uL (1.6-8.6); Neutrophils % (auto) 72.6 % (37.0-80.0); Nucleated Red Blood Cells % 0.1 %; Platelet Count (auto) 191 10^3/uL (140-450); Red Blood Cells 4.26 10^6/uL (4.0-5.20); Red Cell Distribution Width 13.5 % (11.8-14.3); White Blood Cell 8.8 10^3/uL (4.4-10.8)
[2024-05-26 07:46] LABS: Alanine Aminotransferase 42 U/L (7-40); Albumin 4.1 g/dL (3.2-4.8); Alkaline Phosphatase 82 U/L (46-116); Anion Gap 7 (5-15); Aspartate Aminotransferase 57 U/L (13-40); BUN/Creatinine Ratio 16.8 (10.0-20.0); Blood Urea Nitrogen 17 mg/dL (9-23); Calcium 9.8 mg/dL (8.7-10.4); Carbon Dioxide 28 mmol/L (20-31); Chloride 103 mmol/L (98-107); Glucose 103 mg/dL (74-106); Sodium 138 mmol/L (136-145); Total Protein 6.6 g/dL (5.7-8.2)
[2024-05-26] MEDS: methylPREDNISolone SOD SUCC 40 MG/ML VL IV SCH (08:29)
[2024-05-26] MEDS: AMIODARONE HCL 200 MG TAB PO SCH (08:30)
[2024-05-26] MEDS: FLUoxetine HCL 20 MG CAP PO SCH (08:30)
[2024-05-26] MEDS: traZODone HCL 50 MG TAB PO SCH (08:30)
[2024-05-26] MEDS: METOPROLOL SUCCINATE XL 50 MG TAB PO SCH (08:31)
[2024-05-26] MEDS: ACETAMINOPHEN 325 MG TAB PO PRN (12:37)
[2024-05-26] MEDS: cefTRIAXone 1GM/50ML D5W 50 ML IV SCH (12:37)
[2024-05-26] MEDS: FUROSEMIDE 20 MG/2 ML VIAL IV ONE (12:39)
[2024-05-26] MEDS: HYDROcodone-ACET 5/325MG TAB PO PRN (17:18)
[2024-05-26] MEDS: ATORVASTATIN 20 MG TAB PO SCH (17:27)
[2024-05-26] MEDS ORDERED: ATORVASTATIN 20 MG TAB PO SCH (18:00)
[2024-05-26] MEDS: AZITHROMYCIN 250 MG TAB PO ONE (19:53)
[2024-05-26 20:28] LABS: Alanine Aminotransferase 41 U/L (7-40); Albumin 4.5 g/dL (3.2-4.8); Alkaline Phosphatase 81 U/L (46-116); Anion Gap 7 (5-15); Aspartate Aminotransferase 51 U/L (13-40); BUN/Creatinine Ratio 15.7 (10.0-20.0); Bilirubin, Total 0.6 mg/dL (0.2-1.0); Blood Urea Nitrogen 21 mg/dL (9-23); Carbon Dioxide 25 mmol/L (20-31); Chloride 102 mmol/L (98-107); Glucose 158 mg/dL (74-106); Potassium 4.4 mmol/L (3.5-5.1); Sodium 134 mmol/L (136-145); Total Protein 7.4 g/dL (5.7-8.2)
[2024-05-26 21:55] LABS: COVID19 ANTIGEN SOFIA FIA NEGATIVE (NEGATIVE); Rapid Influenza A Negative (Negative); Rapid Influenza B Negative (Negative)
[2024-05-27] VITALS (9 sets, daily range): BP systolic 100–135; BP diastolic 44–68; PULSE 54–80; RESP 16–20; TEMP 97.6–98.6; O2SAT 90–97
[2024-05-27] MEDS: AZITHROMYCIN 250 MG TAB PO SCH (18:00)
[2024-05-28] VITALS (11 sets, daily range): BP systolic 107–147; BP diastolic 51–98; PULSE 52–78; RESP 16–22; TEMP 97–98.2; O2SAT 93–100
[2024-05-28 06:32] LABS: Alanine Aminotransferase 41 U/L (7-40); Albumin 4.1 g/dL (3.2-4.8); Alkaline Phosphatase 70 U/L (46-116); Anion Gap 6 (5-15); BUN/Creatinine Ratio 29.6 (10.0-20.0); Calcium 9.6 mg/dL (8.7-10.4); Carbon Dioxide 25 mmol/L (20-31); Chloride 106 mmol/L (98-107); Glucose 97 mg/dL (74-106); Potassium 3.9 mmol/L (3.5-5.1); Sodium 137 mmol/L (136-145)
[2024-05-28 06:33] LABS: Aspartate Aminotransferase 40 U/L (13-40); Bilirubin, Total 0.5 mg/dL (0.2-1.0); Total Protein 6.8 g/dL (5.7-8.2)
[2024-05-28 06:44] LABS: Blood Urea Nitrogen 34 mg/dL (9-23)
[2024-05-28] MEDS: IPRATROPIUM BROM 0.5 MG/2.5ML INH SOL NEB PRN (09:21)
[2024-05-28] MEDS: ALBUTEROL SULF 2.5 MG/0.5ML(0.5%) NEB SOLN NEB PRN (09:21)
[2024-05-28] MEDS: FUROSEMIDE 20 MG/2 ML VIAL IV ONE (12:10)
[2024-05-28] MEDS: CEPHALEXIN 250 MG CAP PO SCH (12:24)
[2024-05-28 12:33] LABS: Base Excess -1.9 mmol/L (-2.0-3.0)
[2024-05-29] VITALS (11 sets, daily range): BP systolic 106–119; BP diastolic 50–66; PULSE 57–67; RESP 15–19; TEMP 97.8–98.3; O2SAT 93–100
[2024-05-29 07:17] LABS: Alanine Aminotransferase 40 U/L (7-40); Albumin 3.9 g/dL (3.2-4.8); Alkaline Phosphatase 75 U/L (46-116); Anion Gap 6 (5-15); BUN/Creatinine Ratio 22.9 (10.0-20.0); Carbon Dioxide 26 mmol/L (20-31); Chloride 104 mmol/L (98-107); Glucose 104 mg/dL (74-106); Potassium 4.5 mmol/L (3.5-5.1); Sodium 136 mmol/L (136-145)
[2024-05-29 07:18] LABS: Aspartate Aminotransferase 37 U/L (13-40); Bilirubin, Total 0.5 mg/dL (0.2-1.0); Total Protein 6.9 g/dL (5.7-8.2)
[2024-05-29 07:50] LABS: Blood Urea Nitrogen 24 mg/dL (9-23)
[2024-05-29] MEDS: FUROSEMIDE 40 MG/4 ML VIAL IV ONE (17:18)
[2024-05-30] VITALS (8 sets, daily range): BP systolic 101–134; BP diastolic 52–68; PULSE 55–72; RESP 16–18; TEMP 97.5–98.2; O2SAT 94–97
[2024-05-30 05:45] LABS: Calcium 9.7 mg/dL (8.7-10.4)
[2024-05-30 05:46] LABS: Anion Gap 6 (5-15); Carbon Dioxide 27 mmol/L (20-31); Chloride 102 mmol/L (98-107); Potassium 4.1 mmol/L (3.5-5.1); Sodium 135 mmol/L (136-145)
[2024-05-30 05:52] LABS: BUN/Creatinine Ratio 20.3 (10.0-20.0); Blood Urea Nitrogen 29 mg/dL (9-23); Glucose 105 mg/dL (74-106)
[2024-05-30] MEDS ORDERED: CEPH250C PO (14:34)
== END 2024-05-30 14:05 | disposition home or self-care (01) | DRG 177 ==
LOC: ER 14:54 → OVERFLOW 20:40 → WEST WING 23:48
PROVIDERS: ADMIT Internal Medicine; ATTEND Internal Medicine
DX: J15.69 Pneumonia due to other Gram-negative bacteria (principal); I21.A1 Myocardial infarction type 2; J96.01 Acute respiratory failure with hypoxia; N17.0 Acute kidney failure with tubular necrosis; J44.1 Chronic obstructive pulmonary disease with (acute) exacerbation; N39.0 Urinary tract infection, site not specified; J44.0 Chronic obstructive pulmonary disease with (acute) lower respiratory infection; I50.30 Unspecified diastolic (congestive) heart failure; I11.0 Hypertensive heart disease with heart failure; J15.9 Unspecified bacterial pneumonia; Z20.822 Contact with and (suspected) exposure to COVID-19; E78.5 Hyperlipidemia, unspecified; E03.9 Hypothyroidism, unspecified; I48.91 Unspecified atrial fibrillation; F03.90 Unspecified dementia, unspecified severity, without behavioral disturbance, psychotic disturbance, mood disturbance, and anxiety; G47.00 Insomnia, unspecified; K59.00 Constipation, unspecified; F41.9 Anxiety disorder, unspecified; Z79.82 Long term (current) use of aspirin; Z90.710 Acquired absence of both cervix and uterus; Z90.49 Acquired absence of other specified parts of digestive tract; Z88.5 Allergy status to narcotic agent; Z88.2 Allergy status to sulfonamides; Z91.011 Allergy to milk products; Z91.013 Allergy to seafood; Z80.49 Family history of malignant neoplasm of other genital organs; Z82.49 Family history of ischemic heart disease and other diseases of the circulatory system
CPT/HCPCS: 36415; 36600; 71045; 74176; 80048; 80053; 81001; 82270; 82805; 83880; 84484; 85025; 85610; 85730; 87070; 87205; 87426; 87804; 93005; 93306; 94640; G0378; J2470

== ENCOUNTER → 2024-11-30 | Outpatient (CLI) | payer OTHER ==
[~2024-11-30] MED LIST changes: +CEPH250C PO; -DOXY-286 PO; -HYDR50TA69 PO; -PRED20TA2 PO; -TRAM-297 PO
[2024-11-30 11:02] LABS: Basophils # (auto) 0 10 ^3/uL (0-0.2); Basophils % (auto) 0.6 % (0.0-2.0); Eosinophils # (auto) 0 10 ^3/uL (0-0.8); Hematocrit 40.5 % (36.0-46.0); Hemoglobin 13.7 g/dL (12.2-16.2); Lymphocytes # (auto) 1.3 10 ^3/uL (0.4-5.4); Lymphocytes % (auto) 19.3 % (10.0-50.0); Mean Corpuscular Hemoglobin 30.6 pg (28.0-32.0); Mean Corpuscular Hgb Conc. 33.9 g/dL (32.0-36.0); Mean Corpuscular Volume 90.4 fL (80.0-100.0); Monocytes # (auto) 0.3 10 ^3/uL (0-1.3); Monocytes % (auto) 4.9 % (0.0-12.0); Neutrophils # (auto) 4.9 10 ^3/uL (1.6-8.6); Neutrophils % (auto) 75.2 % (37.0-80.0); Nucleated Red Blood Cells % 0.1 %; Platelet Count (auto) 174 10^3/uL (140-450); Red Blood Cells 4.48 10^6/uL (4.0-5.20); Red Cell Distribution Width 13.2 % (11.8-14.3); White Blood Cell 6.5 10^3/uL (4.4-10.8)
[2024-11-30 11:19] LABS: Alanine Aminotransferase 37 U/L (7-40); Albumin 4.3 g/dL (3.2-4.8); Alkaline Phosphatase 100 U/L (46-116); Anion Gap 5 (5-15); Aspartate Aminotransferase 36 U/L (13-40); BUN/Creatinine Ratio 17.4 (10.0-20.0); Blood Urea Nitrogen 15 mg/dL (9-23); Calcium 10.1 mg/dL (8.7-10.4); Carbon Dioxide 29 mmol/L (20-31); Chloride 107 mmol/L (98-107); Cholesterol 171 mg/dL (< 200); Glucose 94 mg/dL (74-106); LDL Cholesterol 82 mg/dL (< 100); Potassium 4.3 mmol/L (3.5-5.1); Sodium 141 mmol/L (136-145); Triglycerides 125 mg/dL (< 150)
[2024-11-30 11:20] LABS: Bilirubin, Total 0.9 mg/dL (0.2-1.0); HDL Cholesterol 66 mg/dL (40-59)
== END | disposition home or self-care (01) ==
LOC: LAB 10:30
PROVIDERS: ATTEND Nurse Practitioner Family
DX: I13.0 Hypertensive heart and chronic kidney disease with heart failure and stage 1 through stage 4 chronic kidney disease, or unspecified chronic kidney disease (principal); N18.30 Chronic kidney disease, stage 3 unspecified; I50.9 Heart failure, unspecified
CPT/HCPCS: 36415; 80053; 80061; 84439; 84443; 85025

== ENCOUNTER → 2025-01-30 | Outpatient (CLI) | payer OTHER | END | disposition home or self-care (01) | LOC: Rad HDHVI 07:59 | PROVIDERS: ATTEND Internal Medicine Cardiovascular Disease | DX: Z01.810 Encounter for preprocedural cardiovascular examination (principal); I08.0 Rheumatic disorders of both mitral and aortic valves | CPT/HCPCS: 93306 ==

== ENCOUNTER 2025-02-14 08:17 | Outpatient (CLI) | payer OTHER ==
[~2025-02-14] VITALS: Ht 165.1 cm; Wt 58.1 kg
[2025-02-14] MEDS ORDERED: ADENOSINE 90 MG/30 ML INJ IV ONE (08:50)
[2025-02-14] MEDS ORDERED: ADENOSINE 49 MG in GIVE UN-DILUTED 0 ML IV ONE (16:15)
== END 2025-02-14 17:00 | disposition home or self-care (01) ==
LOC: Rad HDHVI 08:17
PROVIDERS: ATTEND Internal Medicine Cardiovascular Disease
DX: I49.3 Ventricular premature depolarization (principal); I13.0 Hypertensive heart and chronic kidney disease with heart failure and stage 1 through stage 4 chronic kidney disease, or unspecified chronic kidney disease; N18.32 Chronic kidney disease, stage 3b; I50.32 Chronic diastolic (congestive) heart failure; I49.1 Atrial premature depolarization; I42.0 Dilated cardiomyopathy; I48.0 Paroxysmal atrial fibrillation; I20.9 Angina pectoris, unspecified; I25.5 Ischemic cardiomyopathy; E78.5 Hyperlipidemia, unspecified; J44.9 Chronic obstructive pulmonary disease, unspecified; Z82.49 Family history of ischemic heart disease and other diseases of the circulatory system; R07.9 Chest pain, unspecified; R06.00 Dyspnea, unspecified
CPT/HCPCS: 78452; 93017; A9500; J0153

== ENCOUNTER 2025-02-22 16:32 | Outpatient (CLI) | payer OTHER | END 2025-02-22 17:00 | disposition home or self-care (01) | LOC: LAB 16:32 | PROVIDERS: ATTEND Nurse Practitioner Family | DX: N39.0 Urinary tract infection, site not specified (principal) | CPT/HCPCS: 87086 ==

== ENCOUNTER 2025-03-02 11:17 | Inpatient (IN) | payer OTHER ==
[~2025-03-02] VITALS: Ht 162.6 cm; Wt 56.9 kg
--- NOTE | 2025-03-02 11:46 | ED.PDOC ---
History of Present Illness HPI Comments This is a 84 years old female with past medical history of ulcerative colitis, hypothyroidism, AFib on Eliquis, recent UTI presented to the ED with a chief complaint of per rectal bleeding with abdominal pain since morning prior to this visit. According to the patient she started taking Eliquis 3 days ago, today morning he saw fresh blood in the commode and also patient was complaining of bleeding during wiping. She also mentioned abdominal pain which is diffuse, nonradiating, colicky in nature, 01/10 and associated with nausea. She has a history of ulcerative colitis for last 35 years and last colonoscopy was few years ago which was normal according to the patient. PCP: Dr. Hassan Travel Attendants: Dr. Dillard Chief Complaint: GI Bleed Time Seen by MD: 11:23 Primary Care Provider: Tani PACHECO Allergies: Coded Allergies: Fish Allergy (Unverified Allergy, Severe, tongue swelling, 04/20/20) Gluten Meal (Unverified Allergy, Unknown, 03/31/18) Hydromorphone (Verified Allergy, Unknown, 02/26/16) Milk-related Compounds (Unverified Allergy, Unknown, 03/31/18) Quinine (Verified Allergy, Unknown, 02/26/16) Sulfa Antibiotics (Verified Allergy, Unknown, 02/26/16) Home Meds Active Scripts Cephalexin (KEFLEX CAPSULE) 250 Mg Cp, 500 MG PO TID for 5 Days, #15 CAP Prov:KEVIN DAS MD 05/30/24 Pantoprazole Sodium Sesquihydr (Pantoprazole Sodium) 40 Mg Tab, 40 MG PO DAILY for 7 Days, #7 TAB 0 Refills Prov:JACK YEH 01/06/24 Ranolazine (Ranexa) 500 Mg Tab, 500 MG PO BID for 30 Days, #60 TAB Prov:KEVIN DAS MD 09/03/22 Aspirin (Aspirin Low Dose) 81 Mg Tab, 81 MG PO DAILY for 30 Days, #30 TAB Prov:KEVIN DAS MD 09/03/22 Docusate Sodium (Colace) 100 Mg Cap, 1 CAP PO BID PRN, #30 CAP Prov:ARA KIM MD 01/23/21 Donepezil Hydrochloride (DONEPEZIL HCL) 5 Mg Tab, 5 MG PO HS for 30 Days, #30 TAB Prov:JAISON GEE MD 04/24/20 Oxcarbazepine (Trileptal) 600 Mg Tab, 1 TAB PO BID, #180 TAB 1 Refill Prov:Leslie Roach 04/19/20 Reported Medications Apixaban Base (ELIQUIS) 5 Mg Tab, 1 TAB PO BID 01/05/24 Dicyclomine Hcl (BENTYL CAPSULE) 10 Mg Cp, 1 CAP PO TID for 30 Days, #60 01/05/24 Hydrochlorothiazide (Hydrochlorothiazide) 12.5 Mg Cap, 1 CAP PO DAILY 10/07/23 Levothyroxine Sodium (Levothyroxine Sodium) 100 Mcg Tab, 1 TAB PO DAILY 03/02/23 Metoprolol Succinate (Toprol Xl) 50 Mg Tab, 1 TAB PO DAILY, #30 TAB 5 Refills 09/01/22 Prazosin Hcl (Minipres) 1 Mg Cp, 1 MG PO BID, CAP 09/01/22 Amiodarone Hcl (Amiodarone Hcl) 200 Mg Tab, 200 MG PO DAILY for 30 Days 09/01/22 Trazodone Hcl (Trazodone Hcl) 50 Mg Tab, 1 TAB PO DAILY 02/27/22 Cholecalciferol (D3) 400 Unit Cap, 400 UNIT PO, CAP 03/10/18 Multiple Vitamin (Multi-Day Vitamins) Vitamins Tab, 1 TAB PO DAILY, #30 TAB 03/10/18 Fluoxetine Hcl (Pmdd) (Fluoxetine) 20 Mg Cap, 1 CAP PO DAILY 03/10/18 Simvastatin (Zocor) 40 Mg Tab, 1 TAB PO QPM, #90 TAB 1 Refill 02/26/16 Information Source: Patient Mode of Arrival: Ambulatory Severity: Moderate Timing: Hours Duration: Since onset Prehospital treatment: None Past Medical History PAST MEDICAL HISTORY: Dementia, High Lipids, HTN, [place], Thyroid Past Medical History (Other): Ulcerative colitis, recent UTI Surgical History: , Hysterectomy, Pacemaker Surgical History (Other): Left knee surgery INSURANCE AGENT History: 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 History Family History Family History: Reviewed,noncontributory to illness, Family hx of heart denzel Social History Smoker: Non-Smoker Alcohol: Denies ETOH Use Drugs: Denies Drug Use Lives In: Home Constitutional: denies: chills, diaphoresis, fatigue, fever, malaise, sweats, weakness, others EENTM: denies: blurred vision, double vision, ear bleeding, ear discharge, ear drainage, ear pain, ear ringing, eye pain, eye redness, hearing loss, mouth pain, mouth swelling, nasal discharge, nose bleeding, nose congestion, nose pain, photophobia, tearing, throat pain, throat swelling, voice changes, others Respiratory: denies: cough, hemoptysis, orthopnea, SOB at rest, shortness of breath, SOB with excertion, stridor, wheezing, others Cardiovascular: reports: lightheadedness; denies: chest pain, dizzy spells, diaphoresis, Dyspnea on exertion, edema, irregular heart beat, left arm pain, palpitations, PND, syncope, others Gastrointestinal: reports: abdominal pain, diarrhea, rectal bleeding; denies: abdomen distended, blood streaked bowels, constipated, dysphagia, difficulty swallowing, hematemesis, melena, nausea, poor appetite, poor fluid intake, rectal pain, vomiting, others Genitourinary: denies: abnormal vagina bleeding, burning, dyspareunia, dysuria, flank pain, frequency, hematuria, incontinence, pain, , vagina discharge, urgency, others Neurological: reports: dizziness; denies: fainting, headache, left sided numbness, left sided weakness, numbness, paresthesia, pre-existing deficit, right sided numbness, right sided weakness, seizure, speech problems, tingling, tremors, weakness, others Integumetry: denies: bruises, change in color, change in hair/nails, dryness, laceration, lesions, lumps, rash, wounds, others Allergic/Immunocompromised: denies: Difficulty Healing, Frequent Infections, Hives, Itching, others Hematologic/Lymphatic: denies: anemia, blood clots, easy bleeding, easy bruising, swollen glands, others Endocrine: denies: excessive hunger, excessive sweating, excessive thirst, excessive urination, flushing, intolerance to cold, intolerance to heat, unexplained weight gain, unexplained weight loss, others Psychiatric: denies: anxiety, bipolar disorder, depression, hopeless, panic disorder, schizophrenia, sleepless, suicidal, others Physical Exam General Appearance: Mild Distress HEENT: Normal ENT Inspection, Pharynx Normal, TMs Normal Neck: Full Range of Motion, Non-Tender, Normal, Normal Inspection Respiratory: Chest Non-Tender, Lungs Clear, No Accessory Muscle Use, No Respiratory Distress, Normal Breath Sounds Cardiovascular: No Edema, No JVD, No Murmur, No Gallop, Normal Peripheral Pulses, Regular Rate/Rhythm Breast Exam: Deferred Gastrointestinal: Diffuse, Normal Bowel Sounds, Tenderness Genitalia: Deferred Pelvic: Deferred Rectal: Deferred Extremities: No calf tenderness, Normal capillary refill, Normal inspection, Normal range of motion, Non-tender, No pedal edema Neurologic: NOT DONE Cerebellar Function: NOT DONE Reflexes: NOT DONE Skin: NOT DONE Peripheral Pulses: 2+ carotid (R), 2+ carotid (L), 2+ femoral (R), 2+ femoral (L), 2+ dorsalis pedis (R), 2+ dorsalis pedis (L), 2+ Radial (R), 2+ Radial (L), 2+ Brachial (R), 2+ Brachial (L) Lymphatic: NOT DONE Was a procedure done? Was a procedure done?: No Differential Dx Considerations may include: Lower GI bleeding, flare-up of ulcerative colitis, bleeding diathesis. X-Ray, Labs, Meds, VS Vital Signs Date Time Temp Pulse Resp B/P (MAP) Pulse Ox O2 Delivery O2 Flow Rate FiO2 03/02/25 16:04 97.4 64 18 125/77 (93) 96 97.4 03/02/25 13:45 97.6 73 16 143/72 (95) 94 97.6 03/02/25 13:45 73 16 94 Room Air* 0 21 03/02/25 11:18 97.6 87 20 126/71 94 97.6 Lab Test 03/02/25 13:08 03/02/25 12:00 Range/Units Troponin I High Sensitivity 7 10 </=34 ng/L White Blood Count 6.5 4.4-10.8 10^3/uL Red Blood Count 4.84 4.0-5.20 10^6/uL Hemoglobin 14.5 12.2-16.2 g/dL Hematocrit 43.0 36.0-46.0 % Mean Corpuscular Volume 88.8 80.0-100.0 fL Mean Corpuscular Hemoglobin 30.0 28.0-32.0 pg Mean Corpuscular Hemoglobin Concent 33.8 32.0-36.0 g/dL Red Cell Distribution Width 13.6 11.8-14.3 % Platelet Count 182 140-450 10^3/uL Mean Platelet Volume 8.0 6.9-10.8 fL Neutrophils (%) (Auto) 72.0 37.0-80.0 % Lymphocytes (%) (Auto) 21.5 10.0-50.0 % Monocytes (%) (Auto) 5.7 0.0-12.0 % Eosinophils (%) (Auto) 0.0 0.0-7.0 % Basophils (%) (Auto) 0.8 0.0-2.0 % Neutrophils # (Auto) 4.7 1.6-8.6 10 ^3/uL Lymphocytes # (Auto) 1.4 0.4-5.4 10 ^3/uL Monocytes # (Auto) 0.4 0-1.3 10 ^3/uL Eosinophils # (Auto) 0 0-0.8 10 ^3/uL Basophils # (Auto) 0.1 0-0.2 10 ^3/uL Nucleated Red Blood Cells 0.1 % Prothrombin Time 10.5 9.3-11.8 sec Prothrombin Time INR 0.99 0.9-1.15 Activated Partial Thromboplast Time 25.9 24.5-34.5 SEC Sodium Level 140 136-145 mmol/L Potassium Level 4.5 3.5-5.1 mmol/L Chloride Level 104 98-107 mmol/L Carbon Dioxide Level 26 20-31 mmol/L Anion Gap 10 5-15 Blood Urea Nitrogen 24 H 9-23 mg/dL Creatinine 1.11 H 0.550-1.02 mg/dL Glomerular Filtration Rate Calc 50 >90 mL/min BUN/Creatinine Ratio 21.6 H 10.0-20.0 Serum Glucose 110 H 74-106 mg/dL Calcium Level 10.6 H 8.7-10.4 mg/dL Total Bilirubin 1.1 H 0.2-1.0 mg/dL Aspartate Amino Transferase (AST) 40 13-40 U/L Alanine Aminotransferase (ALT) 30 7-40 U/L Alkaline Phosphatase 88 46-116 U/L B-Type Natriuretic Peptide 18.34 0-100 pg/mL Total Protein 7.3 5.7-8.2 g/dL Albumin 4.7 3.2-4.8 g/dL Current Medications Medications (Trade) Dose Ordered Sig/Lenore Route Start Time Stop Time Status Last Admin Sodium Chloride 500 ml @ 500 mls/hr Q1H ONCE IV 03/02/25 11:45 03/02/25 12:44 DC 03/02/25 14:05 Pantoprazole Sodium (Protonix) 40 mg ONCE ONCE IV 03/02/25 11:45 03/02/25 11:46 DC 03/02/25 14:06 X-Ray, Labs, Meds, VS Comment CT scan of the abdomen pelvis with IV contrast demonstrated rectal wall thickening which can be seen with proctocolitis. Hyperdensity in the left aspect of the rectal wall which could represent active bleeding Images Reviewed?: Images reviewed and evaluated by me Time of 1ST Reevaluation: 17:30 Reevaluation 1ST: Unchanged Patient Education/Counseling: Diagnosis, Treatment Family Education/Counseling: Diagnosis, Treatment SEPSIS Sepsis Screen Date sepsis recognized/suspect: Mar 02, 2025 Time Sepsis recognized/suspect: 1120 Recent Procedure: No On Antibiotic Therapy: No Respiratory Rate >20: No Heart Rate >90: No Temp<36 C (96.8 F) or >38.3 C: No SBP <90 or MAP <65 mmHG: No New Acute Mental Status Change: No Is the patient on CPAP, BIPAP,: No Physician Orders Urinalysis (03/02/25 11:41) Stool Occult Blood (03/02/25 11:41) Ct Ab Pel With Iv Con Only (03/02/25 11:41) Saline Lock (03/02/25 13:53) Vital Signs Date Time Temp Pulse Resp B/P (MAP) Pulse Ox O2 Delivery O2 Flow Rate FiO2 03/02/25 16:04 97.4 64 18 125/77 (93) 96 97.4 03/02/25 13:45 97.6 73 16 143/72 (95) 94 97.6 03/02/25 13:45 73 16 94 Room Air* 0 21 03/02/25 11:18 97.6 87 20 126/71 94 97.6 Laboratory Tests Test 03/02/25 12:00 White Blood Count 6.5 10^3/uL (4.4-10.8) Medications Medications Dose Ordered Sig/Lenore Route Start Time Stop Time Status Last Admin Dose Admin Pantoprazole Sodium 40 mg ONCE ONCE IV 03/02/25 11:45 03/02/25 11:46 DC 03/02/25 14:06 Sodium Chloride 500 ml @ 500 mls/hr Q1H ONCE IV 03/02/25 11:45 03/02/25 12:44 DC 03/02/25 14:05 Departure 1 Departure Time of Disposition: 17:30 Impression: Primary Impression: Lower GI bleed Additional Impression: Proctocolitis with rectal bleeding Disposition: 30 STILL A PATIENT Admit to: Med Surg Condition: Guarded Critical Care Note Critical Care Time?: No Stability Stability form required: SERAFIN Hull RESIDENT Mar 02, 2025 11:46
[2025-03-02 12:22] LABS: Hematocrit 43.0 % (36.0-46.0); Hemoglobin 14.5 g/dL (12.2-16.2); Mean Corpuscular Hemoglobin 30.0 pg (28.0-32.0); Mean Corpuscular Volume 88.8 fL (80.0-100.0); Nucleated Red Blood Cells % 0.1 %
[2025-03-02 12:37] LABS: INR 0.99 (0.9-1.15); Partial Thromboplastin Time 25.9 SEC (24.5-34.5); Prothrombin Time 10.5 sec (9.3-11.8)
[2025-03-02 12:44] LABS: Alanine Aminotransferase 30 U/L (7-40); Albumin 4.7 g/dL (3.2-4.8); Alkaline Phosphatase 88 U/L (46-116); Anion Gap 10 (5-15); BUN/Creatinine Ratio 21.6 (10.0-20.0); Carbon Dioxide 26 mmol/L (20-31); Chloride 104 mmol/L (98-107); Potassium 4.5 mmol/L (3.5-5.1); Sodium 140 mmol/L (136-145); Total Protein 7.3 g/dL (5.7-8.2)
[2025-03-02 12:45] LABS: Bilirubin, Total 1.1 mg/dL (0.2-1.0); Blood Urea Nitrogen 24 mg/dL (9-23); Calcium 10.6 mg/dL (8.7-10.4); Glucose 110 mg/dL (74-106)
[2025-03-02 13:45] VITALS: PULSE 73; RESP 16; O2SAT 94
[2025-03-02] MEDS: SODIUM CHLORIDE 0.9% 500 ML IV ONE (14:05)
[2025-03-02] MEDS: PANTOPRAZOLE 40 MG/10 ML VIAL INJ IV ONE (14:06)
[2025-03-02] MEDS: IOHEXOL 300 MG/ML 100ML BOTTLE IJ ONE (14:32)
--- NOTE | 2025-03-02 15:05 | DVH ---
Indication: per rectal bleeding Technique: CT axial images of the abdomen and pelvis are obtained with intravenous contrast. Coronal and sagittal reformats were obtained. Radiation Dose Information: CTDI volume is 5.54 mGy. Dose-length product is 3.92 mGy*cm Comparison: CT CT AB PEL WO CON-NO ORAL OR IV on DOS: 05/25/24, FINDINGS: Lung bases demonstrate no pleural effusion. Breast implants with capsular calcifications. Adrenal glands, spleen unremarkable. Pancreatic head region calcifications likely sequela of chronic pancreatitis changes. No enhancing hepatic lesion. No CT evidence for cholelithiasis. No hydronephrosis. Stomach is partially distended. Small bowel loops are normal in caliber. Rectal wall thickening. There is also hyperdensity within the rectum. Moderate volume stool in the c olon. No secondary signs for appendicitis. Abdominal aortic atherosclerotic disease and tortuosity. Bladder partially distended. No free pelvic fluid. No inguinal lymphadenopathy. [id number] bilateral sacroiliac degenerative joint disease. Thoracic neurostimulator leads. Sev ere thoracolumbar degenerative disc disease. Posterior fixation changes L3, L4. Posterior decompres terry L3 through L5. Interbody disc spacer at L4-5. Thoracolumbar levocurvature. Similar appearing po stoperative changes in the posterior paraspinal lumbar tissues as the previous examination IMPRESSION: Rectal wall thickening which can be seen with proctocolitis. Hyperdensity in the left aspect of the rectal wall which could represent active bleeding. Recommend GI consultation to further evaluate. Atherosclerotic disease. Other chronic findings as described.
[2025-03-02] MEDS ORDERED: ONDANSETRON HCL 4 MG/2 ML VIAL IV PRN (17:45)
--- NOTE | 2025-03-02 19:41 | DVHHP2 ---
History of Present Illness Reason for Visit: Rectal bleeding History of Present Illness 84-year-old female presents for evaluation of rectal bleeding. Patient with a history of ulcerative colitis currently on Eliquis presents for evaluation of rectal bleeding that has been ongoing for the past two days. Patient denies dizziness, chest pain or shortness for breath. No hematuria. No other acute complaints reported. Past Medical History Atrial fibrillation, mi, thyroid, dyslipidemia, dementia Past Surgical History Pacemaker, hysterectomy, , left knee surgery Family History Noncontributory Smoke: No ALCOHOL: none Drugs: None Review of Systems Review of Systems Review of systems are currently negative otherwise addressed in HPI. Allergies: Coded Allergies: Fish Allergy (Unverified Allergy, Severe, tongue swelling, 04/20/20) Gluten Meal (Unverified Allergy, Unknown, 03/31/18) Hydromorphone (Verified Allergy, Unknown, 02/26/16) Milk-related Compounds (Unverified Allergy, Unknown, 03/31/18) Quinine (Verified Allergy, Unknown, 02/26/16) Sulfa Antibiotics (Verified Allergy, Unknown, 02/26/16) Medications Current Medications Medications Dose Ordered Sig/Lenore Route Start Time Stop Time Status Last Admin Dose Admin Donepezil HCl 5 mg HS PO 03/02/25 22:00 Levothyroxine Sodium 100 mcg QAM@0600 PO 03/03/25 06:00 Amiodarone HCl 200 mg DAILY PO 03/03/25 10:00 Ranolazine 500 mg BID PO 03/02/25 22:00 Atorvastatin Calcium 40 mg HS PO 03/02/25 22:00 Pantoprazole Sodium 40 mg DAILY IV 03/03/25 10:00 Ondansetron HCl 4 mg Q4HP PRN IV 03/02/25 17:45 Exam Vital Signs Vital Signs Date Time Temp Pulse Resp B/P (MAP) Pulse Ox O2 Delivery O2 Flow Rate FiO2 03/02/25 17:10 98.4 89 22 125/62 (83) 95 98.4 03/02/25 13:45 Room Air* 0 21 Exam Gen: 84-year-old female in mild Skin: Warm, dry, normal color and texture, no rash. HEENT: Normocephalic atraumatic, mucous membranes moist and pink. Neck: Cervical and supraclavicular nodes normal without enlargement, trachea is midline, thyroid gland is normal without masses. Pulmonary: Clear to auscultation and percussion bilaterally. Cardiac: Regular rate and rhythm. No murmur Abdomen: Soft, nontender, nondistended, bowel sounds present all 4 quadrants, no guarding, no rigidity, no organomegaly. Extremities: No cyanosis, clubbing, no edema Neuro: Cranial nerves II through XII grossly intact, normal affect and speech, no focal motor deficits. Labs/Xrays ORDERING PHYSICIAN: SERAFIN DAVIS RESIDENT PROCEDURE(s): ABPLIV - CT AB PEL WITH IV CON ONLY REASON: per rectal bleeding ORDER NUMBER(s): [id number], ACCESSION NUMBER(s): [id number] Indication: per rectal bleeding Technique: CT axial images of the abdomen and pelvis are obtained with intravenous contrast. Coronal and sagittal reformats were obtained. Radiation Dose Information: CTDI volume is 5.54 mGy. Dose-length product is 3.92 mGy*cm Comparison: CT CT AB PEL WO CON-NO ORAL OR IV on DOS: 05/25/24, FINDINGS: Lung bases demonstrate no pleural effusion. Breast implants with capsular calcifications. Adrenal glands, spleen unremarkable. Pancreatic head region calcifications likely sequela of chronic pancreatitis changes. No enhancing hepatic lesion. No CT evidence for cholelithiasis. No hydronephrosis. Stomach is partially distended. Small bowel loops are normal in caliber. Rectal wall thickening. There is also hyperdensity within the rectum. Moderate volume stool in the colon. No secondary signs for appendicitis. Abdominal aortic atherosclerotic disease and tortuosity. Bladder partially distended. No free pelvic fluid. No inguinal lymphadenopathy. [id number] bilateral sacroiliac degenerative joint disease. Thoracic neurostimulator leads. Severe thoracolumbar degenerative disc disease. Posterior fixation changes L3, L4. Posterior decompression L3 through L5. Interbody disc spacer at L4-5. Thoracolumbar levocurvature. Similar appearing postoperative changes in the posterior paraspinal lumbar tissues as the previous examination IMPRESSION: Rectal wall thickening which can be seen with proctocolitis. Hyperdensity in the left aspect of the rectal wall which could represent active bleeding. Recommend GI consultation to further evaluate. Atherosclerotic disease. Other chronic findings as described. ATED BY: JOSE ERAZO MD Labs Test 03/02/25 13:08 03/02/25 12:00 Range/Units Troponin I High Sensitivity 7 </=34 ng/L White Blood Count 6.5 4.4-10.8 10^3/uL Red Blood Count 4.84 4.0-5.20 10^6/uL Hemoglobin 14.5 12.2-16.2 g/dL Hematocrit 43.0 36.0-46.0 % Mean Corpuscular Volume 88.8 80.0-100.0 fL Mean Corpuscular Hemoglobin 30.0 28.0-32.0 pg Mean Corpuscular Hemoglobin Concent 33.8 32.0-36.0 g/dL Red Cell Distribution Width 13.6 11.8-14.3 % Platelet Count 182 140-450 10^3/uL Mean Platelet Volume 8.0 6.9-10.8 fL Neutrophils (%) (Auto) 72.0 37.0-80.0 % Lymphocytes (%) (Auto) 21.5 10.0-50.0 % Monocytes (%) (Auto) 5.7 0.0-12.0 % Eosinophils (%) (Auto) 0.0 0.0-7.0 % Basophils (%) (Auto) 0.8 0.0-2.0 % Neutrophils # (Auto) 4.7 1.6-8.6 10 ^3/uL Lymphocytes # (Auto) 1.4 0.4-5.4 10 ^3/uL Monocytes # (Auto) 0.4 0-1.3 10 ^3/uL Eosinophils # (Auto) 0 0-0.8 10 ^3/uL Basophils # (Auto) 0.1 0-0.2 10 ^3/uL Nucleated Red Blood Cells 0.1 % Prothrombin Time 10.5 9.3-11.8 sec Prothrombin Time INR 0.99 0.9-1.15 Activated Partial Thromboplast Time 25.9 24.5-34.5 SEC Sodium Level 140 136-145 mmol/L Potassium Level 4.5 3.5-5.1 mmol/L Chloride Level 104 98-107 mmol/L Carbon Dioxide Level 26 20-31 mmol/L Anion Gap 10 5-15 Blood Urea Nitrogen 24 H 9-23 mg/dL Creatinine 1.11 H 0.550-1.02 mg/dL Glomerular Filtration Rate Calc 50 >90 mL/min BUN/Creatinine Ratio 21.6 H 10.0-20.0 Serum Glucose 110 H 74-106 mg/dL Calcium Level 10.6 H 8.7-10.4 mg/dL Total Bilirubin 1.1 H 0.2-1.0 mg/dL Aspartate Amino Transferase (AST) 40 13-40 U/L Alanine Aminotransferase (ALT) 30 7-40 U/L Alkaline Phosphatase 88 46-116 U/L B-Type Natriuretic Peptide 18.34 0-100 pg/mL Total Protein 7.3 5.7-8.2 g/dL Albumin 4.7 3.2-4.8 g/dL SEPSIS Sepsis Screen Date sepsis recognized/suspect: Mar 02, 2025 Time Sepsis recognized/suspect: 1119 Recent Procedure: No On Antibiotic Therapy: No Respiratory Rate >20: No Heart Rate >90: No Temp<36 C (96.8 F) or >38.3 C: No SBP <90 or MAP <65 mmHG: No New Acute Mental Status Change: No Is the patient on CPAP, BIPAP,: No Physician Orders Urinalysis (03/02/25 11:41) Stool Occult Blood (03/02/25 11:41) Ct Ab Pel With Iv Con Only (03/02/25 11:41) Saline Lock (03/02/25 13:53) * Gi Dvh Wringer Operator (03/02/25 17:39) Donepezil Tablet (Aricept Tablet) (03/02/25 22:00) Levothyroxine Tablet (Synthroid Tablet) (03/03/25 06:00) Amiodarone Tablet (Cordarone Tablet) (03/03/25 10:00) Ranolazine (Ranexa Er) (03/02/25 22:00) Atorvastatin (Lipitor) (03/02/25 22:00) Basic Metabolic Panel (03/03/25 04:00) Pantoprazole (Protonix) (03/03/25 10:00) Admit (03/02/25 17:39) Ondansetron Hcl (Zofran) (03/02/25 17:45) Complete Blood Count (03/03/25 04:00) Condition: Stable (03/02/25 17:39) Clear Liq Diet (03/02/25 Dinner) Bedrest With Bathroom Privileg (03/02/25 17:39) Type And Screen (03/02/25 17:39) Vital Signs Date Time Temp Pulse Resp B/P (MAP) Pulse Ox O2 Delivery O2 Flow Rate FiO2 03/02/25 17:10 98.4 89 22 125/62 (83) 95 98.4 03/02/25 16:04 97.4 64 18 125/77 (93) 96 97.4 03/02/25 13:45 97.6 73 16 143/72 (95) 94 97.6 03/02/25 13:45 73 16 94 Room Air* 0 21 Laboratory Tests Test 03/02/25 12:00 White Blood Count 6.5 10^3/uL (4.4-10.8) Medications Medications Dose Ordered Sig/Lenore Route Start Time Stop Time Status Last Admin Dose Admin Pantoprazole Sodium 40 mg ONCE ONCE IV 03/02/25 11:45 03/02/25 11:46 DC 03/02/25 14:06 40 MG Sodium Chloride 500 ml @ 500 mls/hr Q1H ONCE IV 03/02/25 11:45 03/02/25 12:44 DC 03/02/25 14:05 500 MLS/HR Assessment/Plan Assessment/Plan Assessment Rectal bleed Hypertension Dementia Plan Admit the patient to [facility] to the hospitalist GI consult Clear liquid diet Continue treatment per orders. Plan discussed with: Patient My Orders Orders - BERNADINE ONEAL Procedure Category Date Status Time * Gi Dvh Wringer Operator CONS 03/02/25 Transmitted 17:39 Donepezil Tablet PHA 03/02/25 In Process (Aricept Tablet) 22:00 Levothyroxine Tablet PHA 03/03/25 In Process (Synthroid Tablet) 06:00 Amiodarone Tablet PHA 03/03/25 In Process (Cordarone Tablet) 10:00 Ranolazine (Ranexa Er) PHA 03/02/25 In Process 22:00 Atorvastatin (Lipitor) PHA 03/02/25 In Process 22:00 Basic Metabolic Panel LAB 03/03/25 Verified 04:00 Pantoprazole PHA 03/03/25 In Process (Protonix) 10:00 Admit ADMIT 03/02/25 Transmitted 17:39 Ondansetron Hcl PHA 03/02/25 In Process (Zofran) 17:45 Complete Blood Count LAB 03/03/25 Verified 04:00 Condition: Stable MARY 03/02/25 In Process 17:39 Clear Liq Diet DIET 03/02/25 Transmitted Dinner Bedrest With Bathroom MARY 03/02/25 In Process Privileg 17:39 Type And Screen BBK 03/02/25 In Process 17:39 Date of Service: Mar 02, 2025 Billing Provider: BERNADINE ONEAL Common Visit Codes: [id number] INP/OBS CARE (HIGH) BERNADINE ONEAL Mar 02, 2025 19:41
[2025-03-02 20:00] VITALS: PULSE 68; RESP 12; O2SAT 95
[2025-03-02 20:47] LABS: Hematocrit 38.0 % (36.0-46.0); Hemoglobin 13.0 g/dL (12.2-16.2)
[2025-03-02] MEDS: DONEPEZIL HYDROCHLORIDE 5 MG TAB PO SCH (22:14)
[2025-03-02] MEDS: ATORVASTATIN 20 MG TAB PO SCH (22:14)
[2025-03-02] MEDS: RANOLAZINE ER 500 MG TAB PO SCH (22:14)
[2025-03-02 22:31] VITALS: BP 140/85; PULSE 55; RESP 17; TEMP 98.5; O2SAT 92
[2025-03-02 22:50] VITALS: BP 140/85; PULSE 58; RESP 16; TEMP 98.5; O2SAT 93
[2025-03-03 01:00] VITALS: BP 140/58; PULSE 66; RESP 17; TEMP 97.7; O2SAT 95
[2025-03-03 01:19] LABS: Urine Protein, UAD Negative (Negative)
[2025-03-03 05:00] VITALS: BP 118/61; PULSE 56; RESP 16; TEMP 98; O2SAT 94
[2025-03-03] MEDS: ACETAMINOPHEN 325 MG TAB PO PRN (05:38)
[2025-03-03] MEDS: LEVOTHYROXINE SODIUM 100 MCG TAB PO SCH (05:38)
[2025-03-03 06:32] LABS: Hematocrit 38.4 % (36.0-46.0); Hemoglobin 13.5 g/dL (12.2-16.2); Mean Corpuscular Hemoglobin 31.1 pg (28.0-32.0); Mean Corpuscular Volume 88.2 fL (80.0-100.0); Nucleated Red Blood Cells % 0.1 %
[2025-03-03 06:39] LABS: Chloride 103 mmol/L (98-107); Potassium 4.0 mmol/L (3.5-5.1); Sodium 140 mmol/L (136-145)
[2025-03-03 06:40] LABS: Anion Gap 10 (5-15); Carbon Dioxide 27 mmol/L (20-31)
[2025-03-03 06:41] LABS: Calcium 10.3 mg/dL (8.7-10.4)
[2025-03-03 06:46] LABS: BUN/Creatinine Ratio 18.9 (10.0-20.0); Blood Urea Nitrogen 20 mg/dL (9-23); Glucose 80 mg/dL (74-106)
[2025-03-03 09:00] VITALS: BP 146/73; PULSE 64; RESP 16; TEMP 97.5; O2SAT 93
[2025-03-03] MEDS: PANTOPRAZOLE 40 MG/10 ML VIAL INJ IV SCH (10:40)
[2025-03-03] MEDS: AMIODARONE HCL 200 MG TAB PO SCH (10:41)
--- NOTE | 2025-03-03 12:58 | DVHINCON2 ---
BALJIT YANG 03/03/25 1258: GI Consult Consult Note GI consult note Date of Consultation: 03/03/2025 Chief Complaint: Rectal bleed Referring Physician: Abran PERRY H&P: 84-year-old female admitted with rectal bleeding. Patient complaining of generalized abdominal pain for one day which is a constant pain. No nausea or vomiting. Denies hematemesis. Patient having regular bowel movements with red blood in stool. Diagnosed with ulcerative colitis 10 years ago. Last colonoscopy 10/07/2023 Dr. Hopkins. Not on any treatment for ulcerative colitis. Patient takes Eliquis for history of atrial fibrillation DATE OF OPERATION: 10/07/23 PROCEDURE: Diagnostic colonoscopy. PREOPERATIVE INDICATION: The patient is a 83 -year-old female undergoing colonoscopy for history of blood-streaked stools and some change in bowel habits POSTOPERATIVE DIAGNOSES: 1. Trace internal hemorrhoids; no fresh or old blood in the colon 2. Moderate tortuosity and redundancy of the colon 3. Otherwise complete and normal colonoscopy examination up to the terminal ileum without evidence of colitis or ileitis Past Medical History: Atrial fibrillation, mi, thyroid, dyslipidemia, dementia Past Surgical History: Pacemaker, hysterectomy, , left knee surgery Social History: NO smoking, drinking ETOH and use of illegal drugs. Family History: Noncontributory Review of Systems: Constitutional: no fever, chill, weight loss HEENT: no eye pain, no hearing loss, no oral lesion, no scleral icterus Heart: no chest pain, no chest pressure Lung: no cough, no dyspnea with exertion Abdomen: see HPI Physical exam: General: NAD, AAOX3 Chest: lung causey clear to auscultation Heart: RRR, no murmur Abdomen: non-distended, mild generalized tenderness to palpation, +BS Labs: Labs Test 03/03/25 05:15 03/03/25 01:00 03/02/25 13:08 03/02/25 12:00 Range/Units White Blood Count 6.4 4.4-10.8 10^3/uL Red Blood Count 4.35 4.0-5.20 10^6/uL Hemoglobin 13.5 12.2-16.2 g/dL Hematocrit 38.4 36.0-46.0 % Mean Corpuscular Volume 88.2 80.0-100.0 fL Mean Corpuscular Hemoglobin 31.1 28.0-32.0 pg Mean Corpuscular Hemoglobin Concent 35.3 32.0-36.0 g/dL Red Cell Distribution Width 13.4 11.8-14.3 % Platelet Count 176 140-450 10^3/uL Mean Platelet Volume 8.2 6.9-10.8 fL Neutrophils (%) (Auto) 61.9 37.0-80.0 % Lymphocytes (%) (Auto) 29.6 10.0-50.0 % Monocytes (%) (Auto) 7.6 0.0-12.0 % Eosinophils (%) (Auto) 0.0 0.0-7.0 % Basophils (%) (Auto) 0.9 0.0-2.0 % Neutrophils # (Auto) 4.0 1.6-8.6 10 ^3/uL Lymphocytes # (Auto) 1.9 0.4-5.4 10 ^3/uL Monocytes # (Auto) 0.5 0-1.3 10 ^3/uL Eosinophils # (Auto) 0 0-0.8 10 ^3/uL Basophils # (Auto) 0.1 0-0.2 10 ^3/uL Nucleated Red Blood Cells 0.1 % Sodium Level 140 136-145 mmol/L Potassium Level 4.0 3.5-5.1 mmol/L Chloride Level 103 98-107 mmol/L Carbon Dioxide Level 27 20-31 mmol/L Anion Gap 10 5-15 Blood Urea Nitrogen 20 9-23 mg/dL Creatinine 1.06 H 0.550-1.02 mg/dL Glomerular Filtration Rate Calc 52 >90 mL/min BUN/Creatinine Ratio 18.9 10.0-20.0 Serum Glucose 80 74-106 mg/dL Calcium Level 10.3 8.7-10.4 mg/dL Urine Color Light-yellow Yellow Urine Clarity Clear Clear Urine pH 6.0 5.0-9.0 Urine Specific [place] 1.044 H 1.001-1.035 Urine Protein Negative Negative Urine Ketones 1+ H Negative Urine Blood Negative Negative /uL Urine Nitrite Negative Negative Urine Bilirubin Negative Negative Urine Urobilinogen Normal Negative mg/dL Urine Leukocyte Esterase Trace Negative /uL Urine RBC 1 0 - 4 /hpf Urine Microscopic WBC 4 0-5 /HPF Urine Squamous Epithelial Cells Few <5 /hpf Urine Bacteria None seen None Seen /hpf Urine Glucose 3+ H Normal mg/dL Troponin I High Sensitivity 7 </=34 ng/L Prothrombin Time 10.5 9.3-11.8 sec Prothrombin Time INR 0.99 0.9-1.15 Activated Partial Thromboplast Time 25.9 24.5-34.5 SEC Total Bilirubin 1.1 H 0.2-1.0 mg/dL Aspartate Amino Transferase (AST) 40 13-40 U/L Alanine Aminotransferase (ALT) 30 7-40 U/L Alkaline Phosphatase 88 46-116 U/L B-Type Natriuretic Peptide 18.34 0-100 pg/mL Total Protein 7.3 5.7-8.2 g/dL Albumin 4.7 3.2-4.8 g/dL Imaging: CT abdomen pelvis IMPRESSION: Rectal wall thickening which can be seen with proctocolitis. Hyperdensity in the left aspect of the rectal wall which could represent active bleeding. Recommend GI consultation to further evaluate. Atherosclerotic disease. Other chronic findings as described. Assessment: Abdominal pain Rectal bleeding History of ulcerative colitis Possible proctocolitis Plan: Discussed with Dr. Pat Null Monitor labs IV antibiotics IV steroids Supportive care recommended at this time We will continue to monitor patient Discussed plan with patient RN and Dr. Brewer or hospitalist Thank you for this consult Date of Service: Mar 03, 2025 Billing Provider: BALJIT YANG Common Visit Codes: CONSULT ONLY Consultation Codes: [id number] CONSULT <60MIN PAT NULL MD 03/06/25 0615: GI Consult Consult Note pt seen and examined 03/04/25 --agree with dx and plan BALJIT YANG Mar 03, 2025 12:58 PAT NULL MD Mar 06, 2025 06:15
[2025-03-03 13:00] VITALS: BP 150/78; PULSE 56; RESP 18; TEMP 98; O2SAT 96
[2025-03-03] MEDS: cefTRIAXone 1GM/50ML D5W 50 ML IV ONE (14:39)
[2025-03-03] MEDS: methylPREDNISolone SOD SUCC 40 MG/ML VL IM ONE (14:39)
[2025-03-03 17:03] VITALS: BP 143/55; PULSE 66; RESP 18; TEMP 97.8; O2SAT 95
--- NOTE | 2025-03-03 17:50 | DVHPN2 ---
Subjective denies any complaints now/had 4 bloody bm today/5 yesterday Changes from previous H/P or p: No Changes Objective Vitals Vital Signs Date Time Temp Pulse Resp B/P (MAP) Pulse Ox O2 Delivery O2 Flow Rate FiO2 03/03/25 17:03 97.8 66 18 143/55 (84) 95 97.8 03/03/25 08:00 Room Air* 0 21 Intake/Output Intake and Output 03/03/25 07:00 Intake Total 740 ml Balance 740 ml Intake Oral 240 ml IV Total 500 ml # Voids 2 General Appearance: Alert, Oriented X3, Cooperative, No acute distress Cardiovascular: Regular rate, Normal S1, Normal S2 Abdomen: Normal bowel sounds, Soft, No tenderness Musculoskeletal: Normal sensory function, Normal motor function Neuro: Normal speech, Strength at 5/5 X4 ext, Normal tone, Sensation intact Psych/Mental Status: Mental status NL, Mood NL Medications Current Medications Medications Dose Ordered Sig/Lenore Route Start Time Stop Time Status Last Admin Dose Admin Donepezil HCl 5 mg HS PO 03/02/25 22:00 03/02/25 22:14 5 MG Levothyroxine Sodium 100 mcg QAM@0600 PO 03/03/25 06:00 03/03/25 05:38 100 MCG Amiodarone HCl 200 mg DAILY PO 03/03/25 10:00 03/03/25 10:41 200 MG Ranolazine 500 mg BID PO 03/02/25 22:00 03/02/25 22:14 500 MG Atorvastatin Calcium 40 mg HS PO 03/02/25 22:00 03/02/25 22:14 40 MG Pantoprazole Sodium 40 mg DAILY IV 03/03/25 10:00 03/03/25 10:40 40 MG Ondansetron HCl 4 mg Q4HP PRN IV 03/02/25 17:45 Acetaminophen 650 mg Q6HP PRN PO 03/03/25 01:30 03/03/25 14:52 650 MG Methylprednisolone Sodium Succinate 40 mg BID IV 03/03/25 22:00 Ceftriaxone Sodium 50 ml @ 100 mls/hr DAILY@09 IV 03/04/25 09:00 Metronidazole 100 ml @ 100 mls/hr Q8HR IV 03/03/25 22:00 Laboratory Results Laboratory Tests 03/03/25 05:15 Chemistry Test 03/03/25 05:15 Calcium Level 10.3 mg/dL (8.7-10.4) Urinalysis Test 03/03/25 01:00 Urine Color Light-yellow (Yellow) Urine Clarity Clear (Clear) Urine pH 6.0 (5.0-9.0) Urine Specific [place] 1.044 (1.001-1.035) Urine Protein Negative (Negative) Urine Ketones 1+ (Negative) H Urine Blood Negative /uL (Negative) Urine Nitrite Negative (Negative) Urine Bilirubin Negative (Negative) Urine Urobilinogen Normal mg/dL (Negative) Urine Leukocyte Esterase Trace /uL (Negative) Urine RBC 1 /hpf (0 - 4) Urine Microscopic WBC 4 /HPF (0-5) Urine Squamous Epithelial Cells Few /hpf (<5) Urine Bacteria None seen /hpf (None Seen) Urine Glucose 3+ mg/dL (Normal) H Labs and/or images reviewed: Labs reviewed by me, Image(s) reviewed by me Assessment/Plan Assessment/Plan flare up of ulceraive colitis- add steroids/antibiotics/gi consulted.hold anticoagulation ? dementia per records- pt alert./awake.oriented hypothyroidism atrial fibrillation Plan discussed with: Patient, Other My Orders Orders - SETH BAH MD Procedure Category Date Status Time Methylprednisolone PHA 03/03/25 In Process Sod Succ (Solu Medrol 22:00 Ceftriaxone 1gm/50ml PHA 03/04/25 In Process D5w (Rocephin) 09:00 Metronidazole PHA 03/03/25 In Process 500mg/100ml (Flagyl 22:00 Up In Chair Qid MARY 03/03/25 In Process 11:42 Complete Blood Count LAB 03/04/25 Verified 04:00 Basic Metabolic Panel LAB 03/04/25 Verified 04:00 Date of Service: Mar 03, 2025 Billing Provider: SETH BHA MD Common Visit Codes: [id number] INP/OBS CARE(MOD) SETH BAH MD Mar 03, 2025 17:50
[2025-03-03 21:01] VITALS: BP 144/81; PULSE 63; RESP 16; TEMP 98; O2SAT 95
[2025-03-03] MEDS: methylPREDNISolone SOD SUCC 40 MG/ML VL IV SCH (21:51)
[2025-03-04 01:00] VITALS: BP 138/88; PULSE 76; RESP 16; TEMP 98.1; O2SAT 94
[2025-03-04 05:00] VITALS: BP 119/66; PULSE 57; RESP 16; TEMP 98.1; O2SAT 94
[2025-03-04 07:12] LABS: Hematocrit 40.4 % (36.0-46.0); Hemoglobin 14.0 g/dL (12.2-16.2); Mean Corpuscular Hemoglobin 30.7 pg (28.0-32.0); Mean Corpuscular Volume 88.8 fL (80.0-100.0); Nucleated Red Blood Cells % 0.1 %
[2025-03-04 07:17] LABS: Anion Gap 9 (5-15); Carbon Dioxide 26 mmol/L (20-31); Chloride 102 mmol/L (98-107); Potassium 5.0 mmol/L (3.5-5.1); Sodium 137 mmol/L (136-145)
[2025-03-04 07:19] LABS: Calcium 9.7 mg/dL (8.7-10.4)
[2025-03-04 07:23] LABS: BUN/Creatinine Ratio 16.5 (10.0-20.0); Blood Urea Nitrogen 18 mg/dL (9-23)
[2025-03-04 07:27] LABS: Glucose 185 mg/dL (74-106)
[2025-03-04 09:00] VITALS: BP 122/62; PULSE 51; RESP 18; TEMP 97.6; O2SAT 96
[2025-03-04] MEDS: cefTRIAXone 1GM/50ML D5W 50 ML IV SCH (09:23)
[2025-03-04 13:00] VITALS: BP 146/77; PULSE 60; RESP 18; TEMP 97.6; O2SAT 94
[2025-03-04 17:10] VITALS: BP 132/77; PULSE 63; RESP 19; TEMP 97.8; O2SAT 96
--- NOTE | 2025-03-04 17:21 | DVHPN2 ---
Subjective denies any complaints now/had 3 bloody bm today/5 yesterday Changes from previous H/P or p: No Changes Objective Vitals Vital Signs Date Time Temp Pulse Resp B/P (MAP) Pulse Ox O2 Delivery O2 Flow Rate FiO2 03/04/25 17:10 97.8 63 19 132/77 (95) 96 97.8 03/04/25 07:45 Room Air* 0 21 Intake/Output Intake and Output 03/04/25 07:00 Intake Total 1000 ml Balance 1000 ml Intake Oral 900 ml IV Total 100 ml # Voids 9 General Appearance: Alert, Oriented X3, Cooperative, No acute distress Cardiovascular: Regular rate, Normal S1, Normal S2 Abdomen: Normal bowel sounds, Soft, No tenderness Musculoskeletal: Normal sensory function, Normal motor function Neuro: Normal speech, Strength at 5/5 X4 ext, Normal tone, Sensation intact Psych/Mental Status: Mental status NL, Mood NL Medications Current Medications Medications Dose Ordered Sig/Lenore Route Start Time Stop Time Status Last Admin Dose Admin Donepezil HCl 5 mg HS PO 03/02/25 22:00 03/03/25 21:51 5 MG Levothyroxine Sodium 100 mcg QAM@0600 PO 03/03/25 06:00 03/04/25 06:03 100 MCG Amiodarone HCl 200 mg DAILY PO 03/03/25 10:00 03/04/25 09:22 200 MG Ranolazine 500 mg BID PO 03/02/25 22:00 03/03/25 21:50 500 MG Atorvastatin Calcium 40 mg HS PO 03/02/25 22:00 03/03/25 21:51 40 MG Pantoprazole Sodium 40 mg DAILY IV 03/03/25 10:00 03/04/25 09:22 40 MG Ondansetron HCl 4 mg Q4HP PRN IV 03/02/25 17:45 Acetaminophen 650 mg Q6HP PRN PO 03/03/25 01:30 03/04/25 09:41 650 MG Methylprednisolone Sodium Succinate 40 mg BID IV 03/03/25 22:00 03/04/25 09:22 40 MG Ceftriaxone Sodium 50 ml @ 100 mls/hr DAILY@09 IV 03/04/25 09:00 03/04/25 09:23 100 MLS/HR Metronidazole 100 ml @ 100 mls/hr Q8HR IV 03/03/25 22:00 03/04/25 15:21 100 MLS/HR Laboratory Results Laboratory Tests 03/04/25 05:26 Chemistry Test 03/04/25 05:26 Calcium Level 9.7 mg/dL (8.7-10.4) Urinalysis Test 03/03/25 01:00 Urine Color Light-yellow (Yellow) Urine Clarity Clear (Clear) Urine pH 6.0 (5.0-9.0) Urine Specific [place] 1.044 (1.001-1.035) Urine Protein Negative (Negative) Urine Ketones 1+ (Negative) H Urine Blood Negative /uL (Negative) Urine Nitrite Negative (Negative) Urine Bilirubin Negative (Negative) Urine Urobilinogen Normal mg/dL (Negative) Urine Leukocyte Esterase Trace /uL (Negative) Urine RBC 1 /hpf (0 - 4) Urine Microscopic WBC 4 /HPF (0-5) Urine Squamous Epithelial Cells Few /hpf (<5) Urine Bacteria None seen /hpf (None Seen) Urine Glucose 3+ mg/dL (Normal) H Labs and/or images reviewed: Labs reviewed by me Assessment/Plan Assessment/Plan flare up of ulceraive colitis- add steroids/antibiotics/gi consulted.hold anticoagulation ? dementia per records- pt alert./awake.oriented hypothyroidism atrial fibrillation Plan discussed with: Patient, Other My Orders Orders - SETH BAH MD Procedure Category Date Status Time Tramadol Hcl (Ultram) PHA 03/04/25 Verified 17:30 Date of Service: Mar 04, 2025 Billing Provider: SETH BAH MD Common Visit Codes: [id number] INP/OBS CARE(MOD) SETH BAH MD Mar 04, 2025 17:21
[2025-03-04 21:00] VITALS: BP 168/83; PULSE 65; RESP 17; TEMP 98.3; O2SAT 94
[2025-03-05 01:00] VITALS: BP 140/76; PULSE 64; RESP 16; TEMP 97.9; O2SAT 96
[2025-03-05 05:00] VITALS: BP 143/75; PULSE 66; RESP 17; TEMP 97.5; O2SAT 97
[2025-03-05 09:00] VITALS: BP 144/83; PULSE 68; RESP 16; TEMP 97.4; O2SAT 95
--- NOTE | 2025-03-05 10:18 | DVHPN2 ---
Progress Note - Dictate Date Seen: Mar 05, 2025 Medical Necessity Reason Pt with a Central, PICC or Fol: No Subjective The patient continues to have symptoms vital signs Vital Sign Date Time Temp Pulse Resp B/P (MAP) Pulse Ox O2 Delivery O2 Flow Rate FiO2 03/05/25 09:00 97.4 68 16 144/83 (103) 95 97.4 03/04/25 20:00 Room Air* 0 21 Total Intake and Output 03/04/25 03/04/25 03/05/25 15:00 23:00 07:00 Intake Total 150 ml 1180 ml 300 ml Balance 150 ml 1180 ml 300 ml medications Current Medications Medications Dose Ordered Sig/Lenore Route Start Time Stop Time Status Last Admin Dose Admin Donepezil HCl 5 mg HS PO 03/02/25 22:00 03/04/25 22:09 5 MG Levothyroxine Sodium 100 mcg QAM@0600 PO 03/03/25 06:00 03/05/25 05:41 100 MCG Amiodarone HCl 200 mg DAILY PO 03/03/25 10:00 03/04/25 09:22 200 MG Ranolazine 500 mg BID PO 03/02/25 22:00 03/04/25 22:09 500 MG Atorvastatin Calcium 40 mg HS PO 03/02/25 22:00 03/04/25 22:09 40 MG Pantoprazole Sodium 40 mg DAILY IV 03/03/25 10:00 03/04/25 09:22 40 MG Ondansetron HCl 4 mg Q4HP PRN IV 03/02/25 17:45 Acetaminophen 650 mg Q6HP PRN PO 03/03/25 01:30 03/04/25 09:41 650 MG Methylprednisolone Sodium Succinate 40 mg BID IV 03/03/25 22:00 03/04/25 22:08 40 MG Ceftriaxone Sodium 50 ml @ 100 mls/hr DAILY@09 IV 03/04/25 09:00 03/04/25 09:23 100 MLS/HR Metronidazole 100 ml @ 100 mls/hr Q8HR IV 03/03/25 22:00 03/05/25 05:41 100 MLS/HR Tramadol HCl 50 mg Q6HP PRN PO 03/04/25 17:30 03/04/25 23:34 50 MG objective General: Well-developed well-nourished HEENT: NC/AT EOMI PERRLA O/P clear, no JVD or cervical lymphadenopathy, no scleral icterus Heart: Regular rate and rhythm, no murmurs rubs or gallops Lungs: Clear to auscultation bilaterally, no wheezes rales or rhonchi Abdomen: Soft, nontender, nondistended, no organomegaly, normoactive bowel sounds Extremity: No clubbing cyanosis or edema, no rashes or bruises Neuro: Cranial nerves 2-12 grossly intact, moves all four extremities, no asterixis laboratory and microbiology Laboratory Tests 03/04/25 05:26 Test 03/04/25 05:26 Range/Units Serum Glucose 185 H 74-106 mg/dL Problem List 1. History of anticoagulant use 2. Possible proctocolitis 3. Rectal bleeding 4. History of internal hemorrhoids Differential diagnosis includes proctitis versus hemorrhoids versus other Recommendations: 1. Continue with antibiotics and steroids 2. Diet as tolerated 3. If the patient does not improve consider sigmoidoscopy 4. I will follow Problems(with codes): (1) Gastrointestinal bleeding, lower Plan discussed with: Patient PAT NULL MD Mar 05, 2025 10:18
[2025-03-05 13:00] VITALS: BP 156/84; PULSE 64; RESP 16; TEMP 97.6; O2SAT 97
--- NOTE | 2025-03-05 16:22 | DVHPN2 ---
Subjective denies any complaints now/had 3 bloody bm today/5 yesterday Changes from previous H/P or p: No Changes Objective Vitals Vital Signs Date Time Temp Pulse Resp B/P (MAP) Pulse Ox O2 Delivery O2 Flow Rate FiO2 03/05/25 13:00 97.6 64 16 156/84 (108) 97 97.6 03/05/25 08:00 Room Air* 0 21 Intake/Output Intake and Output 03/05/25 07:00 Intake Total 1630 ml Balance 1630 ml Intake Oral 1380 ml IV Total 250 ml # Voids 6 # Bowel Movements 3 General Appearance: Alert, Oriented X3, Cooperative, No acute distress Cardiovascular: Regular rate, Normal S1, Normal S2 Abdomen: Normal bowel sounds, Soft, No tenderness Musculoskeletal: Normal sensory function, Normal motor function Neuro: Normal speech, Strength at 5/5 X4 ext, Normal tone, Sensation intact Psych/Mental Status: Mental status NL, Mood NL Medications Current Medications Medications Dose Ordered Sig/Lenore Route Start Time Stop Time Status Last Admin Dose Admin Donepezil HCl 5 mg HS PO 03/02/25 22:00 03/04/25 22:09 5 MG Levothyroxine Sodium 100 mcg QAM@0600 PO 03/03/25 06:00 03/05/25 05:41 100 MCG Amiodarone HCl 200 mg DAILY PO 03/03/25 10:00 03/05/25 12:29 200 MG Ranolazine 500 mg BID PO 03/02/25 22:00 03/05/25 10:39 500 MG Atorvastatin Calcium 40 mg HS PO 03/02/25 22:00 03/04/25 22:09 40 MG Pantoprazole Sodium 40 mg DAILY IV 03/03/25 10:00 03/05/25 10:40 40 MG Ondansetron HCl 4 mg Q4HP PRN IV 03/02/25 17:45 Acetaminophen 650 mg Q6HP PRN PO 03/03/25 01:30 03/05/25 15:23 650 MG Methylprednisolone Sodium Succinate 40 mg BID IV 03/03/25 22:00 03/05/25 10:40 40 MG Ceftriaxone Sodium 50 ml @ 100 mls/hr DAILY@09 IV 03/04/25 09:00 03/05/25 10:39 100 MLS/HR Metronidazole 100 ml @ 100 mls/hr Q8HR IV 03/03/25 22:00 03/05/25 15:23 100 MLS/HR Tramadol HCl 50 mg Q6HP PRN PO 03/04/25 17:30 03/05/25 10:39 50 MG Laboratory Results Laboratory Tests 03/04/25 05:26 Urinalysis Test 03/03/25 01:00 Urine Color Light-yellow (Yellow) Urine Clarity Clear (Clear) Urine pH 6.0 (5.0-9.0) Urine Specific [place] 1.044 (1.001-1.035) Urine Protein Negative (Negative) Urine Ketones 1+ (Negative) H Urine Blood Negative /uL (Negative) Urine Nitrite Negative (Negative) Urine Bilirubin Negative (Negative) Urine Urobilinogen Normal mg/dL (Negative) Urine Leukocyte Esterase Trace /uL (Negative) Urine RBC 1 /hpf (0 - 4) Urine Microscopic WBC 4 /HPF (0-5) Urine Squamous Epithelial Cells Few /hpf (<5) Urine Bacteria None seen /hpf (None Seen) Urine Glucose 3+ mg/dL (Normal) H Labs and/or images reviewed: Labs reviewed by me, Image(s) reviewed by me Assessment/Plan Assessment/Plan flare up of ulceraive colitis- add steroids/antibiotics/gi consulted.hold anticoagulation//gi input appreciated in not better in 48 hrs gi may plan on sigmoidoscopy per gi notes ? mild/early if dementia per records- pt alert./awake.oriented hypothyroidism atrial fibrillation-rate controlled/anticoagulation on hold Plan discussed with: Patient, Other My Orders Orders - SETH BAH MD Procedure Category Date Status Time Tramadol Hcl (Ultram) PHA 03/04/25 In Process 17:30 Date of Service: Mar 05, 2025 Billing Provider: SETH BAH MD Common Visit Codes: [id number] INP/OBS CARE(MOD) SETH BAH MD Mar 05, 2025 16:22
[2025-03-05 17:00] VITALS: BP 136/73; PULSE 57; RESP 16; TEMP 98; O2SAT 94
[2025-03-05 21:00] VITALS: BP 154/75; PULSE 68; RESP 18; TEMP 97; O2SAT 95
[2025-03-06] VITALS (7 sets, daily range): BP systolic 130–166; BP diastolic 64–96; PULSE 54–147; RESP 15–86; TEMP 96.1–98.1; O2SAT 93–96
[2025-03-06 11:42] LABS: Hematocrit 42.0 % (36.0-46.0); Hemoglobin 14.2 g/dL (12.2-16.2); Mean Corpuscular Hemoglobin 30.3 pg (28.0-32.0); Mean Corpuscular Volume 89.3 fL (80.0-100.0); Nucleated Red Blood Cells % 0.1 %
[2025-03-06] MEDS: METOPROLOL TARTRATE 25 MG TAB PO ONE (11:43)
--- NOTE | 2025-03-06 12:45 | DVHPN2 ---
Subjective Patient admits to feeling better Last bowel movement this a.m., still having slight red blood in her stool No abdominal pain Changes from previous H/P or p: No Changes Objective Vitals Vital Signs Date Time Temp Pulse Resp B/P (MAP) Pulse Ox O2 Delivery O2 Flow Rate FiO2 03/06/25 11:43 66 173/86 03/06/25 09:00 97.7 15 94 97.7 03/06/25 07:40 Room Air* 0 21 Intake/Output Intake and Output 03/06/25 07:00 Intake Total 1420 ml Output Total 0 ml Balance 1420 ml Intake Oral 1170 ml IV Total 250 ml Output Urine Total 0 ml # Voids 4 # Bowel Movements 4 General Appearance: Alert, Oriented X3, Cooperative, No acute distress, mild distress, moderate distress, severe distress, Other Lungs: Clear to auscultation, Normal air movement, Other Cardiovascular: Regular rate, Normal S1, Normal S2, No murmurs, Gallops, Rubs, Other Abdomen: Normal bowel sounds, Soft, No tenderness, No hepatospenomegaly, No masses, Other Musculoskeletal: Normal sensory function, Normal motor function Neuro: Normal speech, Strength at 5/5 X4 ext, Normal tone, Sensation intact Psych/Mental Status: Mental status NL, Mood NL Medications Current Medications Medications Dose Ordered Sig/Lenore Route Start Time Stop Time Status Last Admin Dose Admin Donepezil HCl 5 mg HS PO 03/02/25 22:00 03/05/25 21:51 5 MG Levothyroxine Sodium 100 mcg QAM@0600 PO 03/03/25 06:00 03/06/25 05:08 100 MCG Amiodarone HCl 200 mg DAILY PO 03/03/25 10:00 03/06/25 09:05 200 MG Ranolazine 500 mg BID PO 03/02/25 22:00 03/06/25 09:05 500 MG Atorvastatin Calcium 40 mg HS PO 03/02/25 22:00 03/05/25 21:51 40 MG Pantoprazole Sodium 40 mg DAILY IV 03/03/25 10:00 03/06/25 09:05 40 MG Ondansetron HCl 4 mg Q4HP PRN IV 03/02/25 17:45 Acetaminophen 650 mg Q6HP PRN PO 03/03/25 01:30 03/05/25 15:23 650 MG Methylprednisolone Sodium Succinate 40 mg BID IV 03/03/25 22:00 03/06/25 09:05 40 MG Ceftriaxone Sodium 50 ml @ 100 mls/hr DAILY@09 IV 03/04/25 09:00 03/06/25 09:05 100 MLS/HR Metronidazole 100 ml @ 100 mls/hr Q8HR IV 03/03/25 22:00 03/06/25 05:08 100 MLS/HR Tramadol HCl 50 mg Q6HP PRN PO 03/04/25 17:30 03/05/25 10:39 50 MG Metoprolol Tartrate 25 mg BID PO 03/06/25 22:00 Laboratory Results Laboratory Tests 03/04/25 05:26 03/06/25 10:57 Urinalysis Test 03/03/25 01:00 Urine Color Light-yellow (Yellow) Urine Clarity Clear (Clear) Urine pH 6.0 (5.0-9.0) Urine Specific [place] 1.044 (1.001-1.035) Urine Protein Negative (Negative) Urine Ketones 1+ (Negative) H Urine Blood Negative /uL (Negative) Urine Nitrite Negative (Negative) Urine Bilirubin Negative (Negative) Urine Urobilinogen Normal mg/dL (Negative) Urine Leukocyte Esterase Trace /uL (Negative) Urine RBC 1 /hpf (0 - 4) Urine Microscopic WBC 4 /HPF (0-5) Urine Squamous Epithelial Cells Few /hpf (<5) Urine Bacteria None seen /hpf (None Seen) Urine Glucose 3+ mg/dL (Normal) H Labs and/or images reviewed: Labs reviewed by me, Image(s) reviewed by me Assessment/Plan Assessment/Plan Possible proctocolitis Rectal bleed History of anticoagulant use for AFib History of internal hemorrhoids Ulcerative colitis Plan Discussed with Dr. John Greer Continue antibiotics and steroids Possible sigmoidoscopy if symptoms persist Monitor labs We will continue to follow patient Plan discussed with: Patient, Other (RN) Date of Service: Mar 06, 2025 Billing Provider: BALJIT YANG Common Visit Codes: [id number] INP/OBS CARE(HIGH) BALJIT YANG Mar 06, 2025 12:45
[2025-03-06] MEDS ORDERED: hydrALAZINE HCL 20 MG/ML VL IV PRN ×2 (14:45→16:45)
[2025-03-06] MEDS: LOPERAMIDE HCL 2 MG CAP/TAB PO PRN (17:28)
--- NOTE | 2025-03-06 18:30 | DVHPN2 ---
Subjective Feeling better, has some abdominal pain. Reviewed: H&P Changes from previous H/P or p: No Changes General: Per HPI Objective Vitals Vital Signs Date Time Temp Pulse Resp B/P (MAP) Pulse Ox O2 Delivery O2 Flow Rate FiO2 03/06/25 17:00 98.1 66 18 159/96 (117) 96 98.1 03/06/25 07:40 Room Air* 0 21 Intake/Output Intake and Output 03/06/25 07:00 Intake Total 1420 ml Output Total 0 ml Balance 1420 ml Intake Oral 1170 ml IV Total 250 ml Output Urine Total 0 ml # Voids 4 # Bowel Movements 4 General Appearance: Alert, Oriented X3, Cooperative, No acute distress, mild distress, moderate distress, severe distress, Other Lungs: Clear to auscultation, Normal air movement, Other Cardiovascular: Regular rate, Normal S1, Normal S2, No murmurs, Gallops, Rubs, Other Abdomen: Normal bowel sounds, Soft, No tenderness, No hepatospenomegaly, No masses, Other Musculoskeletal: Normal sensory function, Normal motor function Neuro: Normal speech, Strength at 5/5 X4 ext, Normal tone, Sensation intact Psych/Mental Status: Mental status NL, Mood NL Medications Current Medications Medications Dose Ordered Sig/Lenore Route Start Time Stop Time Status Last Admin Dose Admin Donepezil HCl 5 mg HS PO 03/02/25 22:00 03/05/25 21:51 5 MG Levothyroxine Sodium 100 mcg QAM@0600 PO 03/03/25 06:00 03/06/25 05:08 100 MCG Amiodarone HCl 200 mg DAILY PO 03/03/25 10:00 03/06/25 09:05 200 MG Ranolazine 500 mg BID PO 03/02/25 22:00 03/06/25 09:05 500 MG Atorvastatin Calcium 40 mg HS PO 03/02/25 22:00 03/05/25 21:51 40 MG Pantoprazole Sodium 40 mg DAILY IV 03/03/25 10:00 03/06/25 09:05 40 MG Ondansetron HCl 4 mg Q4HP PRN IV 03/02/25 17:45 Acetaminophen 650 mg Q6HP PRN PO 03/03/25 01:30 03/05/25 15:23 650 MG Methylprednisolone Sodium Succinate 40 mg BID IV 03/03/25 22:00 03/06/25 09:05 40 MG Ceftriaxone Sodium 50 ml @ 100 mls/hr DAILY@09 IV 03/04/25 09:00 03/06/25 09:05 100 MLS/HR Metronidazole 100 ml @ 100 mls/hr Q8HR IV 03/03/25 22:00 03/06/25 13:41 100 MLS/HR Tramadol HCl 50 mg Q6HP PRN PO 03/04/25 17:30 03/05/25 10:39 50 MG Metoprolol Tartrate 25 mg BID PO 03/06/25 22:00 Hydralazine HCl 5 mg Q6HP PRN IV 03/06/25 16:45 Loperamide HCl 4 mg Q8HP PRN PO 03/06/25 17:00 03/06/25 17:28 4 MG Laboratory Results Laboratory Tests 03/04/25 05:26 03/06/25 10:57 Urinalysis Test 03/03/25 01:00 Urine Color Light-yellow (Yellow) Urine Clarity Clear (Clear) Urine pH 6.0 (5.0-9.0) Urine Specific [place] 1.044 (1.001-1.035) Urine Protein Negative (Negative) Urine Ketones 1+ (Negative) H Urine Blood Negative /uL (Negative) Urine Nitrite Negative (Negative) Urine Bilirubin Negative (Negative) Urine Urobilinogen Normal mg/dL (Negative) Urine Leukocyte Esterase Trace /uL (Negative) Urine RBC 1 /hpf (0 - 4) Urine Microscopic WBC 4 /HPF (0-5) Urine Squamous Epithelial Cells Few /hpf (<5) Urine Bacteria None seen /hpf (None Seen) Urine Glucose 3+ mg/dL (Normal) H Labs and/or images reviewed: Labs reviewed by me, Image(s) reviewed by me Assessment/Plan Assessment/Plan 03/06: Patient is still having some abdominal pain appears to be epigastric tender to palpation. She has bowel sounds intact. She had bowel movement this morning and was melanotic. Over weekend GI was consulted no current plan or for any colonoscopy/lower endoscopy. I will update GI today. CT patient had proctocolitis. Per patient patient has history of UC. No maintenance meds. Currently on antibiotics and steroids. Can possibly discharge tomorrow with outpatient antibiotics and steroids. Lower GI bleed History of UC,? Exacerbation/flare-up ulcerative colitis Hypothyroidism AFib -IV antibiotics - IV Solu-Medrol 40 IV b.i.d. - continue other home medications Diet Med surge Full code Plan discussed with: Patient My Orders Orders - YAZMIN MAC MD Procedure Category Date Status Time Hydralazine Injection PHA 03/06/25 In Process (Apresoline Inject 16:45 Loperamide Capsule PHA 03/06/25 In Process (Imodium Capsule) 17:00 Date of Service: Mar 06, 2025 Billing Provider: YAZMIN MAC MD Common Visit Codes: [id number] INP/OBS CARE(HIGH) YAZMIN MAC MD Mar 06, 2025 18:30
[2025-03-06] MEDS: METOPROLOL TARTRATE 25 MG TAB PO SCH (20:47)
[2025-03-07] VITALS (8 sets, daily range): BP systolic 129–164; BP diastolic 78–93; PULSE 55–64; RESP 13–20; TEMP 97–98.2; O2SAT 95–99
[2025-03-07] MEDS ORDERED: hydrOXYzine HCL 10 MG TAB PO PRN (09:45)
--- NOTE | 2025-03-07 10:05 | DVHPN2 ---
Subjective Feeling better, has some abdominal pain. Reviewed: H&P Changes from previous H/P or p: No Changes General: Per HPI Objective Vitals Vital Signs Date Time Temp Pulse Resp B/P (MAP) Pulse Ox O2 Delivery O2 Flow Rate FiO2 03/07/25 08:59 61 151/81 03/07/25 05:00 97.0 18 95 97.0 03/06/25 20:00 Room Air* 0 21 Intake/Output Intake and Output 03/07/25 07:00 Intake Total 2170 ml Output Total 700 ml Balance 1470 ml Intake Oral 2020 ml IV Total 150 ml Output Urine Total 700 ml # Voids 4 General Appearance: Alert, Oriented X3, Cooperative, No acute distress, mild distress, moderate distress, severe distress, Other Lungs: Clear to auscultation, Normal air movement, Other Cardiovascular: Regular rate, Normal S1, Normal S2, No murmurs, Gallops, Rubs, Other Abdomen: Normal bowel sounds, Soft, No tenderness, No hepatospenomegaly, No masses, Other Musculoskeletal: Normal sensory function, Normal motor function Neuro: Normal speech, Strength at 5/5 X4 ext, Normal tone, Sensation intact Psych/Mental Status: Mental status NL, Mood NL Medications Current Medications Medications Dose Ordered Sig/Lenore Route Start Time Stop Time Status Last Admin Dose Admin Donepezil HCl 5 mg HS PO 03/02/25 22:00 03/06/25 20:46 5 MG Levothyroxine Sodium 100 mcg QAM@0600 PO 03/03/25 06:00 03/07/25 05:36 100 MCG Amiodarone HCl 200 mg DAILY PO 03/03/25 10:00 03/07/25 08:55 200 MG Ranolazine 500 mg BID PO 03/02/25 22:00 03/07/25 08:59 500 MG Atorvastatin Calcium 40 mg HS PO 03/02/25 22:00 03/06/25 20:47 40 MG Pantoprazole Sodium 40 mg DAILY IV 03/03/25 10:00 03/07/25 08:54 40 MG Ondansetron HCl 4 mg Q4HP PRN IV 03/02/25 17:45 Acetaminophen 650 mg Q6HP PRN PO 03/03/25 01:30 03/05/25 15:23 650 MG Methylprednisolone Sodium Succinate 40 mg BID IV 03/03/25 22:00 03/07/25 08:54 40 MG Ceftriaxone Sodium 50 ml @ 100 mls/hr DAILY@09 IV 03/04/25 09:00 03/07/25 08:52 100 MLS/HR Metronidazole 100 ml @ 100 mls/hr Q8HR IV 03/03/25 22:00 03/07/25 05:36 100 MLS/HR Tramadol HCl 50 mg Q6HP PRN PO 03/04/25 17:30 03/05/25 10:39 50 MG Metoprolol Tartrate 25 mg BID PO 03/06/25 22:00 03/07/25 08:59 25 MG Hydralazine HCl 5 mg Q6HP PRN IV 03/06/25 16:45 Loperamide HCl 4 mg Q8HP PRN PO 03/06/25 17:00 03/06/25 17:28 4 MG Hydroxyzine HCl 10 mg Q6HP PRN PO 03/07/25 09:45 UNV Laboratory Results Laboratory Tests 03/04/25 05:26 03/06/25 10:57 Urinalysis Test 03/03/25 01:00 Urine Color Light-yellow (Yellow) Urine Clarity Clear (Clear) Urine pH 6.0 (5.0-9.0) Urine Specific [place] 1.044 (1.001-1.035) Urine Protein Negative (Negative) Urine Ketones 1+ (Negative) H Urine Blood Negative /uL (Negative) Urine Nitrite Negative (Negative) Urine Bilirubin Negative (Negative) Urine Urobilinogen Normal mg/dL (Negative) Urine Leukocyte Esterase Trace /uL (Negative) Urine RBC 1 /hpf (0 - 4) Urine Microscopic WBC 4 /HPF (0-5) Urine Squamous Epithelial Cells Few /hpf (<5) Urine Bacteria None seen /hpf (None Seen) Urine Glucose 3+ mg/dL (Normal) H Labs and/or images reviewed: Labs reviewed by me, Image(s) reviewed by me Assessment/Plan Assessment/Plan 03/06: Patient is still having some abdominal pain appears to be epigastric tender to palpation. She has bowel sounds intact. She had bowel movement this morning and was melanotic. Over weekend GI was consulted no current plan or for any colonoscopy/lower endoscopy. I will update GI today. CT patient had proctocolitis. Per patient patient has history of UC. No maintenance meds. Currently on antibiotics and steroids. Can possibly discharge tomorrow with outpatient antibiotics and steroids. 03/07: Patient has dementia she is unable to completely recall how many times she had bowel movement, she complains that bowel movements still has blood but this is unconfirmed by RN as patient forgets and flushes the BM. GI today wants to conduct anoscopy. We will discuss discharge plan with GI. Labs were ordered, pending? Lower GI bleed History of UC,? Exacerbation/flare-up ulcerative colitis Hypothyroidism AFib -IV antibiotics - IV Solu-Medrol 40 IV b.i.d. - continue other home medications Diet Med surge Full code Plan discussed with: Patient My Orders Orders - YAZMIN MAC MD Procedure Category Date Status Time Hydralazine Injection PHA 03/06/25 In Process (Apresoline Inject 16:45 Loperamide Capsule PHA 03/06/25 In Process (Imodium Capsule) 17:00 Complete Blood Count LAB 03/07/25 Logged 04:00 Hydroxyzine Oral PHA 03/07/25 Logged (Vistaril Oral) 09:45 Date of Service: Mar 07, 2025 Billing Provider: YAZMIN MAC MD Common Visit Codes: [id number] INP/OBS CARE(HIGH) YAZMIN MAC MD Mar 07, 2025 10:05
[2025-03-07 10:41] LABS: Hematocrit 40.7 % (36.0-46.0); Hemoglobin 14.0 g/dL (12.2-16.2); Mean Corpuscular Hemoglobin 30.4 pg (28.0-32.0); Mean Corpuscular Volume 88.1 fL (80.0-100.0); Nucleated Red Blood Cells % 0.1 %
[2025-03-07] MEDS: FLEET ENEMA(ADULT) 135 ML PR ONE ×2 (14:17)
[2025-03-07] MEDS ORDERED: LIDOCAINE VISCOUS 2% 15ML UD ONE (14:54)
[2025-03-07] MEDS ORDERED: SODIUM CHLORIDE LOCK 10 ML ONE (14:54)
[2025-03-07] MEDS: MIDAZOLAM HCL 5 MG/ML-1ML VIAL ONE (15:42)
[2025-03-07] MEDS: diphenhdrAMINE HCL 50 MG/1 ML VL ONE (15:42)
[2025-03-07] MEDS: fentaNYL CITRATE 100 MCG/2 ML VL ONE (15:42)
--- NOTE | 2025-03-07 15:56 | DVHOP2 ---
Operative Report DATE OF OPERATION: 03/07/25 PROCEDURE: Diagnostic flexible sigmoidoscopy PREOPERATIVE INDICATION: The patient is a 84 -year-old female undergoing colonoscopy for evaluation of rectal bleeding and abnormal finding GI tract imaging POSTOPERATIVE DIAGNOSES: 1. Patient had 1+ internal hemorrhoids with slight inflammatory changes and superficial excoriation 2. Mild sigmoid fixation and tortuosity 3. Otherwise normal examination up to about 30 cm above the anal verge with some normal stool above and no GI bleeding PROCEDURE PERFORMED BY: Lilly Hopkins M.D. SCOPE: Olympus videocolonoscope. ASA CLASS: 3. PREOPERATIVE MEDICATIONS: Versed 2 mg, Fentanyl 25 mcg, Benadryl 25 mg PROCEDURE IN DETAIL: After obtaining an informed consent, the patient was placed on left lateral decubitus position. She was then sedated with the above medications. A rectal examination was performed that was normal. The colonoscope was then passed through the anus into the rectosigmoid up to 35 cm above the anal verge The patient had mild sigmoid fixation and tortuosity. Above this level the patient had normal brown stool There was no fresh or old blood in the lower GI tract. There was no proctitis and no rectal bleeding On retroflexion and straight on view she had 1+ internal hemorrhoids with superf icial inflammatory changes. The colonoscope was then withdrawn. The patient tolerated the procedure well without difficulty. WITHDRAWAL TIME: Not applicable QUALITY OF THE PREP: [place] Bowel Prep score: Not applicable COMPLICATIONS : None SPECIMENS: None DISPOSITION: Transfer back to the floor Stable PLAN: 1. Soft mechanical diet 2. Local anorectal hemorrhoidal care 3. Maintain on stool softeners 4. Discharge planning as per hospitalist 5. Outpatient follow up with me in 4-6 weeks to review results and discuss further management LILLY HOPKINS MD Mar 07, 2025 15:56
[2025-03-07] MEDS ORDERED: DOCU-94 PO (16:53)
[2025-03-07] MEDS ORDERED: PSYL0.526 PO (16:53)
--- NOTE | 2025-03-07 16:55 | DVHDS2 ---
Discharge Summary Date of Admission Mar 02, 2025 at 17:39 Date of Discharge: Mar 07, 2025 Labs/Diagnostic Data: Laboratory Results Test 03/07/25 08:43 03/06/25 10:57 03/05/25 05:48 03/04/25 05:26 White Blood Count 11.0 10^3/uL (4.4-10.8) Red Blood Count 4.62 10^6/uL (4.0-5.20) Hemoglobin 14.0 g/dL (12.2-16.2) Hematocrit 40.7 % (36.0-46.0) Mean Corpuscular Volume 88.1 fL (80.0-100.0) Mean Corpuscular Hemoglobin 30.4 pg (28.0-32.0) Mean Corpuscular Hemoglobin Concent 34.5 g/dL (32.0-36.0) Red Cell Distribution Width 13.4 % (11.8-14.3) Platelet Count 173 10^3/uL (140-450) Mean Platelet Volume 8.6 fL (6.9-10.8) Neutrophils (%) (Auto) 70.2 % (37.0-80.0) Lymphocytes (%) (Auto) 21.6 % (10.0-50.0) Monocytes (%) (Auto) 8.1 % (0.0-12.0) Eosinophils (%) (Auto) 0.0 % (0.0-7.0) Basophils (%) (Auto) 0.1 % (0.0-2.0) Neutrophils # (Auto) 7.7 10 ^3/uL (1.6-8.6) Lymphocytes # (Auto) 2.4 10 ^3/uL (0.4-5.4) Monocytes # (Auto) 0.9 10 ^3/uL (0-1.3) Eosinophils # (Auto) 0 10 ^3/uL (0-0.8) Basophils # (Auto) 0 10 ^3/uL (0-0.2) Nucleated Red Blood Cells 0.1 % Potassium Level 4.7 mmol/L (3.5-5.1) Stool Occult Blood Negative (Negative) Stool Occult Blood Sample #3 (Negative) Sodium Level 137 mmol/L (136-145) Chloride Level 102 mmol/L (98-107) Carbon Dioxide Level 26 mmol/L (20-31) Anion Gap 9 (5-15) Blood Urea Nitrogen 18 mg/dL (9-23) Creatinine 1.09 mg/dL (0.550-1.02) Glomerular Filtration Rate Calc 51 mL/min (>90) BUN/Creatinine Ratio 16.5 (10.0-20.0) Serum Glucose 185 mg/dL (74-106) Calcium Level 9.7 mg/dL (8.7-10.4) Test 03/03/25 01:00 03/02/25 13:08 03/02/25 12:00 Urine Color Light-yellow (Yellow) Urine Clarity Clear (Clear) Urine pH 6.0 (5.0-9.0) Urine Specific [place] 1.044 (1.001-1.035) Urine Protein Negative (Negative) Urine Ketones 1+ (Negative) Urine Blood Negative /uL (Negative) Urine Nitrite Negative (Negative) Urine Bilirubin Negative (Negative) Urine Urobilinogen Normal mg/dL (Negative) Urine Leukocyte Esterase Trace /uL (Negative) Urine RBC 1 /hpf (0 - 4) Urine Microscopic WBC 4 /HPF (0-5) Urine Squamous Epithelial Cells Few /hpf (<5) Urine Bacteria None seen /hpf (None Seen) Urine Glucose 3+ mg/dL (Normal) Troponin I High Sensitivity 7 ng/L (</=34) Prothrombin Time 10.5 sec (9.3-11.8) Prothrombin Time INR 0.99 (0.9-1.15) Activated Partial Thromboplast Time 25.9 SEC (24.5-34.5) Total Bilirubin 1.1 mg/dL (0.2-1.0) Aspartate Amino Transferase (AST) 40 U/L (13-40) Alanine Aminotransferase (ALT) 30 U/L (7-40) Alkaline Phosphatase 88 U/L (46-116) B-Type Natriuretic Peptide 18.34 pg/mL (0-100) Total Protein 7.3 g/dL (5.7-8.2) Albumin 4.7 g/dL (3.2-4.8) Other Laboratory Tests 03/07/25 08:43 03/06/25 10:57 03/04/25 05:26 Brief Hx & Hospital Course: 84-year-old female With PMH Atrial fibrillation, mi, thyroid, dyslipidemia, dementia presents for evaluation of rectal bleeding. Patient with a history of ulcerative colitis currently on Eliquis presents for evaluation of rectal bleeding that has been ongoing for the past two days. Patient denies dizziness, chest pain or shortness for breath. No hematuria. No other acute complaints reported. 03/06: Patient is still having some abdominal pain appears to be epigastric tender to palpation. She has bowel sounds intact. She had bowel movement this morning and was melanotic. Over weekend GI was consulted no current plan or for any colonoscopy/lower endoscopy. I will update GI today. CT patient had proctocolitis. Per patient patient has history of UC. No maintenance meds. Currently on antibiotics and steroids. Can possibly discharge tomorrow with outpatient antibiotics and steroids. 03/07: Patient has dementia she is unable to completely recall how many times she had bowel movement, she complains that bowel movements still has blood but this is unconfirmed by RN as patient forgets and flushes the BM. GI today wants to conduct anoscopy. We will discuss discharge plan with GI. Labs were ordered, pending? Diagnosis: internal hemorrhoids with inflammation Lower GI bleed History of UC, Exacerbation/flare-up ulcerative colitis ruled out Hypothyroidism Atrial fibrillation, history of mi, dyslipidemia, dementia Discharge plan: Docusate suppository daily - avoid straining while on commode Sitz bath daily 15 minutes High-fiber diet ( Metamucil [id number]) -- okay to use lidocaine hemorrhoid cream - follow up with GI outpatient Follow up with PCP outpatient 1-2 weeks -Continue other home medications not mentioned above Condition at Discharge: Fair Final Diagnosis/Problems List internal hemorrhoids with inflammation Lower GI bleed History of UC, Exacerbation/flare-up ulcerative colitis ruled out Hypothyroidism Atrial fibrillation, history of mi, dyslipidemia, dementia Discharge Disposition: Home Discharge Instruct/Medications Diet: See Comment Diet comment: high fiber Activity: No Restrictions, As Tolerated Follow Up/Referral: pcp, gi Medications: see below Scheduled Amiodarone Hcl (Amiodarone Hcl), 200 MG PO DAILY, (Reported) Apixaban Base (Eliquis), 1 TAB PO BID, (Reported) Aspirin (Aspirin Low Dose), 81 MG PO DAILY Cephalexin (Keflex Capsule), 500 MG PO TID Dicyclomine Hcl (Bentyl Capsule), 1 CAP PO TID, (Reported) Docusate Sodium (Colace), 1 CAP PO DAILY Donepezil Hydrochloride (Donepezil Hcl), 5 MG PO HS Fluoxetine Hcl (Pmdd) (Fluoxetine), 1 CAP PO DAILY, (Reported) Hydrochlorothiazide (Hydrochlorothiazide), 1 CAP PO DAILY, (Reported) Levothyroxine Sodium (Levothyroxine Sodium), 1 TAB PO DAILY, (Reported) Metoprolol Succinate (Toprol Xl), 1 TAB PO DAILY, (Reported) Multiple Vitamin (Multi-Day Vitamins), 1 TAB PO DAILY, (Reported) Oxcarbazepine (Trileptal), 1 TAB PO BID Pantoprazole Sodium Sesquihydr (Pantoprazole Sodium), 40 MG PO DAILY Prazosin Hcl (Minipres), 1 MG PO BID, (Reported) Psyllium (Metamucil 3-in-1 Daily Fi), 400 MG PO DAILY Ranolazine (Ranexa), 500 MG PO BID Simvastatin (Zocor), 1 TAB PO QPM, (Reported) Trazodone Hcl (Trazodone Hcl), 1 TAB PO DAILY, (Reported) Scheduled PRN Docusate Sodium (Colace), 1 CAP PO BID PRN Miscellaneous Medications Cholecalciferol (D3), 400 UNIT PO, (Reported) Discharge Statement: "Patient was advised to return to the ER or call 911 if any headaches, dizziness, shortness of breath, chest pain, abdominal pain, bleeding, fevers, or worsening of medical condition. Patient was counseled about treatment plan, medications, possible side effects, patientverbalized understanding. All questions were answered to the best of my ability. This discharge took greater then 30 minutes in planning, reviewing documentation, counseling the patient, and discussing with other team members." Date of Service: Mar 07, 2025 Billing Provider: YAZMIN MAC MD Common Visit Codes: [id number] DISCH DAY >30min YAZMIN MAC MD Mar 07, 2025 16:55
== END 2025-03-07 20:17 | disposition home or self-care (01) | DRG 395 ==
LOC: ER 11:17 → OVERFLOW 17:39 → WEST WING 22:40
PROVIDERS: ADMIT Student in an Organized Health Care Education/Training Program; ATTEND Student in an Organized Health Care Education/Training Program
PROC: 0DJD8ZZ Inspection of Lower Intestinal Tract, Via Natural or Artificial Opening Endoscopic (ICD-10-PCS; principal; 2025-03-07 15:35)
DX: K64.8 Other hemorrhoids (principal); F03.90 Unspecified dementia, unspecified severity, without behavioral disturbance, psychotic disturbance, mood disturbance, and anxiety; I10 Essential (primary) hypertension; I48.91 Unspecified atrial fibrillation; E03.9 Hypothyroidism, unspecified; E78.5 Hyperlipidemia, unspecified; Z88.5 Allergy status to narcotic agent; Z91.011 Allergy to milk products; Z91.013 Allergy to seafood; Z88.2 Allergy status to sulfonamides; Z91.018 Allergy to other foods; Z79.2 Long term (current) use of antibiotics; Z79.01 Long term (current) use of anticoagulants; Z79.899 Other long term (current) drug therapy; Z90.710 Acquired absence of both cervix and uterus; Z98.891 History of uterine scar from previous surgery; I25.2 Old myocardial infarction; Z79.82 Long term (current) use of aspirin
CPT/HCPCS: 36415; 45330; 74177; 80048; 80053; 81001; 82270; 83880; 84132; 84484; 85014; 85018; 85025; 85610; 85730; 86850; 86900; 86901; G0378; J2250; J2470; J3490

== ENCOUNTER 2025-04-15 19:28 | Emergency (ER) | payer OTHER ==
[~2025-04-15] VITALS: Ht 170.2 cm; Wt 61.2 kg
[~2025-04-15 19:28] MED LIST changes: +PSYL0.526 PO
[2025-04-15 19:41] VITALS: TEMP 97.9
--- NOTE | 2025-04-15 20:06 | ED.PDOC ---
History of Present Illness HPI Comments 84 y/o F presents with right, posterior chest wall pain s/p mechanical fall and injury. Patient endorses on hitting her right, posterior chest wall after falling down 3x steps following lost of balance. Denial of any blood thinner use or head injuries. Denial of any shortness of breath or further associated symptoms. Chief Complaint: Fall Injury Time Seen by MD: 19:30 Primary Care Provider: Tani PACHECO Reviewed Notes: Nurses Notes, Derrick Boat Captain Notes, Medications, Allergies Allergies: Coded Allergies: Fish Allergy (Unverified Allergy, Severe, tongue swelling, 04/20/20) Gluten Meal (Unverified Allergy, Unknown, 03/31/18) Hydromorphone (Verified Allergy, Unknown, 02/26/16) Milk-related Compounds (Unverified Allergy, Unknown, 03/31/18) Quinine (Verified Allergy, Unknown, 02/26/16) Sulfa Antibiotics (Verified Allergy, Unknown, 02/26/16) Home Meds Active Scripts Docusate Sodium (Colace) 100 Mg Cap, 1 CAP PO DAILY for 30 Days, #30 CAP 0 Refills Prov:YAZMIN MAC MD 03/07/25 Psyllium (Metamucil 3-in-1 Daily Fi) 400 Mg Cap, 400 MG PO DAILY for 30 Days, #30 CAP 0 Refills Prov:YAZMIN MAC MD 03/07/25 Cephalexin (KEFLEX CAPSULE) 250 Mg Cp, 500 MG PO TID for 5 Days, #15 CAP Prov:KEVIN DAS MD 05/30/24 Pantoprazole Sodium Sesquihydr (Pantoprazole Sodium) 40 Mg Tab, 40 MG PO DAILY for 7 Days, #7 TAB 0 Refills Prov:JACK YEH 01/06/24 Ranolazine (Ranexa) 500 Mg Tab, 500 MG PO BID for 30 Days, #60 TAB Prov:KEVIN DAS MD 09/03/22 Aspirin (Aspirin Low Dose) 81 Mg Tab, 81 MG PO DAILY for 30 Days, #30 TAB Prov:KEVIN DAS MD 09/03/22 Docusate Sodium (Colace) 100 Mg Cap, 1 CAP PO BID PRN, #30 CAP Prov:ARA KIM MD 01/23/21 Donepezil Hydrochloride (DONEPEZIL HCL) 5 Mg Tab, 5 MG PO HS for 30 Days, #30 TAB Prov:JAISON GEE MD 04/24/20 Oxcarbazepine (Trileptal) 600 Mg Tab, 1 TAB PO BID, #180 TAB 1 Refill Prov:Leslie Roach 04/19/20 Reported Medications Apixaban Base (ELIQUIS) 5 Mg Tab, 1 TAB PO BID 01/05/24 Dicyclomine Hcl (BENTYL CAPSULE) 10 Mg Cp, 1 CAP PO TID for 30 Days, #60 01/05/24 Hydrochlorothiazide (Hydrochlorothiazide) 12.5 Mg Cap, 1 CAP PO DAILY 10/07/23 Levothyroxine Sodium (Levothyroxine Sodium) 100 Mcg Tab, 1 TAB PO DAILY 03/02/23 Metoprolol Succinate (Toprol Xl) 50 Mg Tab, 1 TAB PO DAILY, #30 TAB 5 Refills 09/01/22 Prazosin Hcl (Minipres) 1 Mg Cp, 1 MG PO BID, CAP 09/01/22 Amiodarone Hcl (Amiodarone Hcl) 200 Mg Tab, 200 MG PO DAILY for 30 Days 09/01/22 Trazodone Hcl (Trazodone Hcl) 50 Mg Tab, 1 TAB PO DAILY 02/27/22 Cholecalciferol (D3) 400 Unit Cap, 400 UNIT PO, CAP 03/10/18 Multiple Vitamin (Multi-Day Vitamins) Vitamins Tab, 1 TAB PO DAILY, #30 TAB 03/10/18 Fluoxetine Hcl (Pmdd) (Fluoxetine) 20 Mg Cap, 1 CAP PO DAILY 03/10/18 Simvastatin (Zocor) 40 Mg Tab, 1 TAB PO QPM, #90 TAB 1 Refill 02/26/16 Information Source: Patient, Emergency Med Personnel Mode of Arrival: EMS Past Medical History PAST MEDICAL HISTORY: Dementia, High Lipids, HTN, [place], Thyroid Surgical History: , Hysterectomy, Pacemaker SPEECH PATHOLOGY ASSISTANT History: No Pertinent SPEECH PATHOLOGY ASSISTANT History Family History Family History: Reviewed,noncontributory to illness, Family hx of heart denzel Social History Smoker: Non-Smoker Alcohol: Denies ETOH Use Drugs: Denies Drug Use Lives In: Home All Other Systems: Reviewed and Negative (as per PHI) Physical Exam General Appearance: No Apparent Distress, Normal HEENT: Normal ENT Inspection, Pharynx Normal, TMs Normal Neck: Full Range of Motion, Non-Tender, Normal, Normal Inspection Respiratory: Lungs Clear, No Accessory Muscle Use, No Respiratory Distress, Normal Breath Sounds Cardiovascular: No Edema, No JVD, No Murmur, No Gallop, Normal Peripheral Pulses, Regular Rate/Rhythm Breast Exam: Deferred Gastrointestinal: No Organomegaly, Non Tender, No Pulsatile Mass, Normal Bowel Sounds, Soft Genitalia: Deferred Pelvic: Deferred Rectal: Deferred Extremities: No calf tenderness, Normal capillary refill, Normal inspection, Normal range of motion, Non-tender, No pedal edema Musculoskeletal : Location: Right Extremity Location: Chest (right posterior-lateral side of chest wall ) Apperance: Normal, Tenderness Neurologic: Alert, road builder II-XII nml as Tested, No Motor Deficits, Normal Affect, Normal Mood, No Sensory Deficits Cerebellar Function: Normal Reflexes: Normal Skin: Dry, Normal Color, Warm Lymphatic: No Adenopathy Was a procedure done? Was a procedure done?: No Differential Dx Considerations may include: ptx, fractures, dislocation, contusions, bruising, sprain, among others X-Ray, Labs, Meds, VS Vital Signs Date Time Temp Pulse Resp B/P (MAP) Pulse Ox O2 Delivery O2 Flow Rate FiO2 04/15/25 19:41 97.9 72 16 135/72 93 97.9 Current Medications Medications (Trade) Dose Ordered Sig/Lenore Route Start Time Stop Time Status Last Admin Ketorolac Tromethamine (Toradol Injection) 60 mg ONCE ONCE IM 04/15/25 20:30 04/15/25 20:31 DC 04/15/25 23:52 Time of 1ST Reevaluation: 20:00 Reevaluation 1ST: Unchanged Patient Education/Counseling: Diagnosis, Treatment, Need For Follow Up Family Education/Counseling: No Family Present Additional Information The following tests were ordered, and results were reviewed by me: Additional Information was gathered from interviewing the following independent historians: N/A I reviewed and agreed with the following test results read by other providers: I discussed treatment and results with medical personnel and: patient SEPSIS Sepsis Screen Date sepsis recognized/suspect: Apr 15, 2025 Time Sepsis recognized/suspect: 1942 Recent Procedure: No On Antibiotic Therapy: No Respiratory Rate >20: No Heart Rate >90: No Temp<36 C (96.8 F) or >38.3 C: No SBP <90 or MAP <65 mmHG: No New Acute Mental Status Change: No Is the patient on CPAP, BIPAP,: No Physician Orders R Rib Xray (04/15/25 20:17) Vital Signs Date Time Temp Pulse Resp B/P (MAP) Pulse Ox O2 Delivery O2 Flow Rate FiO2 04/15/25 19:41 97.9 72 16 135/72 93 97.9 Medications Medications Dose Ordered Sig/Lenore Route Start Time Stop Time Status Last Admin Dose Admin Ketorolac Tromethamine 60 mg ONCE ONCE IM 04/15/25 20:30 04/15/25 20:31 DC 04/15/25 23:52 Departure 1 Departure Time of Disposition: 00:34 Impression: Primary Impression: Rib fracture Qualified Codes: S22.31XA - Fracture of one rib, right side, initial encounter for closed fracture Disposition: 01 HOME / SELF CARE / HOMELESS Condition: Good e-Prescriptions Hydrocodone-Acetaminophen (Hydrocodone Bitartrate/AC 5-325 mg) 1 Tab Tab 1 TAB PO Q8HP PRN for 3 Days, #9 TAB Prov: SALMA SALES MD 04/16/25 Discharged With: Self Critical Care Note Critical Care Time?: No Stability Stability form required: No Heart Score Heart Score: Heart Score Response (Comments) Value History N/A 0 EKG N/A 0 Age N/A 0 Risk Factors N/A 0 Troponin N/A 0 Total 0 I personally scribed for SALMA SALES MD ([email or web address]) on 04/15/25 at 20:05. Electronically submitted by Nate Quinn [email or web address]). SALMA SALES MD Apr 15, 2025 20:05
--- NOTE | 2025-04-15 21:07 | DVH ---
EXAMINATION: XY R RIB XRAY INDICATION: falling COMPARISON: XY L RIB X RAY on DOS: 04/16/23 TECHNIQUE: 5 views FINDINGS: No focal consolidation, pleural effusion or significant pneumothorax. Normal cardiomediastinal silhou ette. Subtle minimally displaced fractures of the right 5th and 6th ribs, with adjacent nondisplaced fractu re is also possible. A thoracic spinal column stimulator device, and lumbosacral spinal hardware are present. Bilateral breast implants. IMPRESSION: 1. No acute cardiopulmonary disease. 2. Nondisplaced right rib fractures.
[2025-04-15] MEDS ORDERED: KETOROLAC TROMETH 30 MG/ML 1ML VIAL ONE (23:48)
[2025-04-15] MEDS: KETOROLAC TROMETH 60MG/2ML VIAL IM ONE (23:52)
[2025-04-16] MEDS ORDERED: HYDR-4902 PO (00:35)
[2025-04-16 01:20] VITALS: BP 108/69; PULSE 59; RESP 20; O2SAT 97
== END 2025-04-16 01:30 | disposition home or self-care (01) ==
LOC: EDBD 19:28 → EDUNIT# 19:28 → ER 19:28
DX: S22.41XA Multiple fractures of ribs, right side, initial encounter for closed fracture (principal); Z90.710 Acquired absence of both cervix and uterus; Z88.5 Allergy status to narcotic agent; Z79.899 Other long term (current) drug therapy; Z88.2 Allergy status to sulfonamides; W01.10XA Fall on same level from slipping, tripping and stumbling with subsequent striking against unspecified object, initial encounter; Y93.89 Activity, other specified; Y92.89 Other specified places as the place of occurrence of the external cause; Y99.8 Other external cause status
CPT/HCPCS: 71101; 96372; 99283; J1885

== ENCOUNTER 2025-05-19 12:25 | Emergency (ER) | payer OTHER ==
[~2025-05-19] VITALS: Ht 152.4 cm; Wt 54.5 kg
[~2025-05-19 12:25] MED LIST changes: +HYDR-4902 PO
--- NOTE | 2025-05-19 13:37 | ED.PDOC ---
Musculoskeletal HPI Comments A 85 YEAR OLD FEMALE PRESENTS TO THE ED WITH COMPLAINT OF LEFT WRIST PAIN STATUS POST FALL. PATIENT STATES SHE ACCIDENTALLY TRIPPED AND FELL AND HIT HER LEFT WRIST ON THE WALL YESTERDAY. PATIENT REPORTS SHE IS NOW EXPERIENCING LEFT WRIST PAIN WITH SWELLING AND BRUISING. PATIENT NOTES SHE ALSO SUSTAINED A SMALL LACERATION ON HER LEFT WRIST DUE TO HITTING HER LEFT WRIST ON A BOX. PATIENT DENIES HEAD INJURY, NECK INJURY, LOC, FEVER, CHILLS, SHORTNESS OF BREATH, CHEST PAIN, ABDOMINAL PAIN, NAUSEA, VOMITING, HEADACHE, OR OTHER COMPLAINTS. NO OTHER SYMPTOMS OR MODIFYING FACTORS AT THIS TIME. PATIENT IS ALERT, ORIENTED X 4, AND HAS STEADY GAIT. Chief Complaint: Upper Extremity Time Seen by MD: 12:52 Primary Care Provider: Tani PACHECO Reviewed Notes: Nurses Notes, Medications, Allergies Allergies: Coded Allergies: Fish Allergy (Unverified Allergy, Severe, tongue swelling, 04/20/20) Gluten Meal (Unverified Allergy, Unknown, 03/31/18) Hydromorphone (Verified Allergy, Unknown, 02/26/16) Milk-related Compounds (Unverified Allergy, Unknown, 03/31/18) Quinine (Verified Allergy, Unknown, 02/26/16) Sulfa Antibiotics (Verified Allergy, Unknown, 02/26/16) Home Meds Active Scripts Acetaminophen (Tylenol 8 Hour Arthritis) 650 Mg Tab, 650 MG PO TID, #30 TAB Prov:GUILLERMO SOTO 05/19/25 Cephalexin Monohydrate (Cephalexin) 500 Mg Cap, 1 CAP PO TID, #21 CAP Prov:GUILLERMO SOTO 05/19/25 Hydrocodone-Acetaminophen (Hydrocodone Bitartrate/AC 5-325 mg) 1 Tab Tab, 1 TAB PO Q8HP PRN for 3 Days, #9 TAB Prov:SALMA SALES MD 04/16/25 Docusate Sodium (Colace) 100 Mg Cap, 1 CAP PO DAILY for 30 Days, #30 CAP 0 Refills Prov:YAZMIN MAC MD 03/07/25 Psyllium (Metamucil 3-in-1 Daily Fi) 400 Mg Cap, 400 MG PO DAILY for 30 Days, #30 CAP 0 Refills Prov:YAZMIN MAC MD 03/07/25 Cephalexin (KEFLEX CAPSULE) 250 Mg Cp, 500 MG PO TID for 5 Days, #15 CAP Prov:KEVIN DAS MD 05/30/24 Pantoprazole Sodium Sesquihydr (Pantoprazole Sodium) 40 Mg Tab, 40 MG PO DAILY for 7 Days, #7 TAB 0 Refills Prov:JACK YEH [facility] [place] 01/06/24 Ranolazine (Ranexa) 500 Mg Tab, 500 MG PO BID for 30 Days, #60 TAB Prov:KEVIN DAS MD 09/03/22 Aspirin (Aspirin Low Dose) 81 Mg Tab, 81 MG PO DAILY for 30 Days, #30 TAB Prov:KEVIN DAS MD 09/03/22 Docusate Sodium (Colace) 100 Mg Cap, 1 CAP PO BID PRN, #30 CAP Prov:ARA KIM MD 01/23/21 Donepezil Hydrochloride (DONEPEZIL HCL) 5 Mg Tab, 5 MG PO HS for 30 Days, #30 TAB Prov:JAISON GEE MD 04/24/20 Oxcarbazepine (Trileptal) 600 Mg Tab, 1 TAB PO BID, #180 TAB 1 Refill Prov:Leslie Roach 04/19/20 Reported Medications Apixaban Base (ELIQUIS) 5 Mg Tab, 1 TAB PO BID 01/05/24 Dicyclomine Hcl (BENTYL CAPSULE) 10 Mg Cp, 1 CAP PO TID for 30 Days, #60 01/05/24 Hydrochlorothiazide (Hydrochlorothiazide) 12.5 Mg Cap, 1 CAP PO DAILY 10/07/23 Levothyroxine Sodium (Levothyroxine Sodium) 100 Mcg Tab, 1 TAB PO DAILY 03/02/23 Metoprolol Succinate (Toprol Xl) 50 Mg Tab, 1 TAB PO DAILY, #30 TAB 5 Refills 09/01/22 Prazosin Hcl (Minipres) 1 Mg Cp, 1 MG PO BID, CAP 09/01/22 Amiodarone Hcl (Amiodarone Hcl) 200 Mg Tab, 200 MG PO DAILY for 30 Days 09/01/22 Trazodone Hcl (Trazodone Hcl) 50 Mg Tab, 1 TAB PO DAILY 02/27/22 Cholecalciferol (D3) 400 Unit Cap, 400 UNIT PO, CAP 8/8/18 Multiple Vitamin (Multi-Day Vitamins) Vitamins Tab, 1 TAB PO DAILY, #30 TAB 03/10/18 Fluoxetine Hcl (Pmdd) (Fluoxetine) 20 Mg Cap, 1 CAP PO DAILY 03/10/18 Simvastatin (Zocor) 40 Mg Tab, 1 TAB PO QPM, #90 TAB 1 Refill 02/26/16 Information Source: Patient Mode of Arrival: Ambulatory Location: Left Extremity Location: Wrist Timing: Days Prehospital treatment: None Severity: Moderate Able to Move Extremity: Yes Bear Weight: Fully Pain: Moderate Mechanism: No Trauma Circumstances: Fall Onset of Symptoms: After Trauma Symptoms: Swelling, Pain DVT Risk Factors: NONE Last Tetanus: Unknown Associated signs and symptoms: Wrist pain Past Medical History PAST MEDICAL HISTORY: Dementia, High Lipids, HTN, [place], Thyroid Surgical History: , Hysterectomy, Pacemaker CREW ATTENDANT History: No Pertinent CREW ATTENDANT History Family History Family History: Reviewed,noncontributory to illness, Family hx of heart denzel Social History Smoker: Non-Smoker Alcohol: Denies ETOH Use Drugs: Denies Drug Use Lives In: Home Constitutional: denies: chills, diaphoresis, fatigue, fever, malaise, sweats, weakness, others EENTM: denies: blurred vision, double vision, ear bleeding, ear discharge, ear drainage, ear pain, ear ringing, eye pain, eye redness, hearing loss, mouth pain, mouth swelling, nasal discharge, nose bleeding, nose congestion, nose pain, photophobia, tearing, throat pain, throat swelling, voice changes, others Respiratory: denies: cough, hemoptysis, orthopnea, SOB at rest, shortness of breath, SOB with excertion, stridor, wheezing, others Cardiovascular: denies: chest pain, dizzy spells, diaphoresis, Dyspnea on exertion, edema, irregular heart beat, left arm pain, lightheadedness, palpitations, PND, syncope, others Gastrointestinal: denies: abdomen distended, abdominal pain, blood streaked bowels, constipated, diarrhea, dysphagia, difficulty swallowing, hematemesis, melena, nausea, poor appetite, poor fluid intake, rectal bleeding, rectal pain, vomiting, others Genitourinary: denies: abnormal vagina bleeding, burning, dyspareunia, dysuria, flank pain, frequency, hematuria, incontinence, pain, , vagina discharge, urgency, others Neurological: denies: dizziness, fainting, headache, left sided numbness, left sided weakness, numbness, paresthesia, pre-existing deficit, right sided numbness, right sided weakness, seizure, speech problems, tingling, tremors, weakness, others Musculoskeletal: reports: others (LEFT WRIST PAIN AND SWELLING); denies: back pain, gout, joint pain, joint swelling, muscle pain, muscle stiffness, neck pain Integumetry: reports: laceration (LACERATION OF LEFT WRIST); denies: bruises, change in color, change in hair/nails, dryness, lesions, lumps, rash, wounds, others Allergic/Immunocompromised: denies: Difficulty Healing, Frequent Infections, Hives, Itching, others Hematologic/Lymphatic: denies: anemia, blood clots, easy bleeding, easy bruising, swollen glands, others Endocrine: denies: excessive hunger, excessive sweating, excessive thirst, excessive urination, flushing, intolerance to cold, intolerance to heat, unexplained weight gain, unexplained weight loss, others Psychiatric: denies: anxiety, bipolar disorder, depression, hopeless, panic disorder, schizophrenia, sleepless, suicidal, others All Other Systems: Reviewed and Negative Physical Exam General Appearance: No Apparent Distress, Normal HEENT: Normal ENT Inspection, PERRL/EOMI, Pharynx Normal, TMs Normal Neck: Full Range of Motion, Non-Tender, Normal, Normal Inspection Respiratory: Chest Non-Tender, Lungs Clear, No Accessory Muscle Use, No Respiratory Distress, Normal Breath Sounds Cardiovascular: No Edema, No JVD, No Murmur, No Gallop, Normal Peripheral Pulses, Regular Rate/Rhythm Breast Exam: Deferred Gastrointestinal: No Organomegaly, Non Tender, No Pulsatile Mass, Normal Bowel Sounds, Soft Genitalia: Deferred Pelvic: Deferred Rectal: Deferred Extremities: No calf tenderness, Normal capillary refill, Normal range of motion, No pedal edema, Swelling (TENDERNESS AND SWELLING WITH CONTUSION ON LEFT DORSAL WRIST, NO BONY TENDERNESS AND DEFORMITY. NORMAL ROM. ), Tender Musculoskeletal : Apperance: Normal Neurologic: Alert, cathead operator II-XII nml as Tested, No Motor Deficits, Normal Affect, Normal Mood, No Sensory Deficits Cerebellar Function: Normal Reflexes: Normal Skin: Bruises (LEFT DORSAL WRIST. ), Dry, Lacerations (2CM LACERATION ON LEFT DORSAL WRIST, NO BLEEDING AND FB. ), Normal Color, Warm Peripheral Pulses: 2+ carotid (R), 2+ carotid (L), 2+ Radial (R), 2+ Radial (L) Lymphatic: No Adenopathy Was a procedure done? Was a procedure done?: Yes Sedation Sedation?: No Laceration Repair : Location LEFT WRIST Length 2CM Anesthetic: Lidocaine, Without epi Laceration Repair Prep: Saline, by Irrigation Laceration Repair Wound Comple: epidermis/dermis repair Laceration Repair: Number of sutures, Skin, SQ, Size (4-0 ETHILON), Nylon, Simple, Gauze Informed consent obtained: No Risks, benefits, and alternati: Yes Images 1 - Differential Diagnosis EXT Differential Diagnosis: Fracture, Sprain, Dislocation, DJD, Contusion, Strain, Arthritis X-Ray, Labs, Meds, VS Vital Signs Date Time Temp Pulse Resp B/P (MAP) Pulse Ox O2 Delivery O2 Flow Rate FiO2 05/19/25 12:27 97.3 69 15 144/93 95 97.3 CLINICAL INDICATION: HIT THE WALL TECHNIQUE: 3 radiographic views of the left wrist were obtained. 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 Narrowing of the carpal radial joint spaces seen calcification in the triangular fibrocartilage (chondrocalcinosis) at the carpal ulnar joint space. Soft tissue swelling is noted of the carpal ulnar joint space. No acute fractures or dislocations. ATED BY: JENNIFER LESTER Jr., DO DICTATED DATE/TIME: 05/19/251410 SIGNED BY: JENNIFER LESTER Jr., SIGNED DATE/TIME: 05/19/251410 CC: X-Ray, Labs, Meds, VS Comment EXTERNAL MEDICAL RECORDS REVIEWED: [NONE] INDEPENDENT HISTORIANS: [NONE] SOCIAL DETERMINANTS OF HEALTH: [NONE] LABS ORDERED: NONE REVIEWED AND INTERPRETED RESULTS: NONE IMAGING ORDERED: XR WRIST LT TREATMENTS ORDERED: LACERATION REPAIR, SEE PROCEDURE SECTION. PROCEDURES PERFORMED: LACERATION REPAIR, SEE PROCEDURE SECTION. CRITICAL CARE TIME: NONE I HAVE DISCUSSED THE PATIENT WITH THE ATTENDING PHYSICIAN DR. ELLIS AND HE AGREES WITH THE PATIENT'S PLAN OF CARE AND DISPOSITION. BASED ON HISTORY OF PRESENT ILLNESS, AND PHYSICAL EXAM, PATIENT WILL BE DISCHARGED HOME. DISCUSSED PLAN FOR DISCHARGE HOME WITH RX []. MEDICATION WARNINGS GIVEN. SHARED DECISION MAKING: PATIENT INSTRUCTED TO FOLLOW UP WITH PRIMARY CARE PROVIDER IN 1-2 DAYS FOR RE-EVALUATION OF SYMPTOMS. PATIENT VERBALIZES UNDERSTANDING TO RETURN TO ED FOR NEW OR WORSENING SYMPTOMS OR IF FOLLOW UP WITH PCP CANNOT BE OBTAINED. PATIENT FEELS COMFORTABLE GOING HOME AT THIS TIME. ALL QUESTIONS ADDRESSED AT TIME OF DISCHARGE. Images Reviewed?: Images reviewed and evaluated by me Time of 1ST Reevaluation: 14:39 Reevaluation 1ST: Improved Patient Education/Counseling: Diagnosis, Treatment, Need For Follow Up Family Education/Counseling: Diagnosis, Treatment, Need For Follow Up Medical Screening: No EMC Exist At This Time Departure 1 Departure Time of Disposition: 14:40 Impression: Primary Impression: Contusion of left wrist Qualified Codes: S60.212A - Contusion of left wrist, initial encounter Additional Impressions: Laceration of left wrist Qualified Codes: S61.512A - Laceration without foreign body of left wrist, initial encounter Status post fall Disposition: 01 HOME / SELF CARE / HOMELESS Condition: Stable Additional Instructions: FOLLOW-UP WITH PCP IN 1 TO 2 DAYS. TAKE MEDICATIONS PRESCRIBED. RETURN TO ED FOR ANY NEW OR WORSENING SYMPTOMS. e-Prescriptions Acetaminophen (Tylenol 8 Hour Arthritis) 650 Mg Tab 650 MG PO TID, #30 TAB Prov: GUILLERMO SOTO 05/19/25 Cephalexin Monohydrate (Cephalexin) 500 Mg Cap 1 CAP PO TID, #21 CAP Prov: GUILLERMO SOTO 05/19/25 Discharged With: Self, Relative Critical Care Note Critical Care Time?: No Stability Stability form required: No I personally scribed for GUILLERMO SOTO ([email or web address]) on 05/19/25 at 13:37. Electronically submitted by David Farris ([email or web address]). I personally scribed for GUILLERMO SOTO ([email or web address]) on 05/19/25 at 14:17. Electronically submitted by David Farris ([email or web address]). I personally scribed for GUILLERMO SOTO ([email or web address]) on 05/19/25 at 14:30. Electronically submitted by David Farris ([email or web address]). GUILLERMO SOTO May 19, 2025 13:37
--- NOTE | 2025-05-19 14:13 | DVH ---
CLINICAL INDICATION: HIT THE WALL TECHNIQUE: 3 radiographic views of the left wrist were obtained. 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 Narrowing of the carpal radial joint spaces seen calcification in the triangular fibrocartilage (jewell drocalcinosis) at the carpal ulnar joint space. Soft tissue swelling is noted of the carpal ulnar joint space. No acute fractures or dislocations.
[2025-05-19 14:36] VITALS: BP 138/81; PULSE 63; RESP 16; TEMP 98.2; O2SAT 96
[2025-05-19] MEDS ORDERED: ACET-1080 PO (14:36)
[2025-05-19] MEDS ORDERED: CEPH500C PO (14:36)
== END 2025-05-19 14:39 | disposition home or self-care (01) ==
LOC: ER 12:25
DX: S61.512A Laceration without foreign body of left wrist, initial encounter (principal); S60.212A Contusion of left wrist, initial encounter; I10 Essential (primary) hypertension; E78.5 Hyperlipidemia, unspecified; Z79.899 Other long term (current) drug therapy; Z79.890 Hormone replacement therapy; Z79.82 Long term (current) use of aspirin; Z79.01 Long term (current) use of anticoagulants; Z88.2 Allergy status to sulfonamides; Z88.5 Allergy status to narcotic agent; Z90.710 Acquired absence of both cervix and uterus; Z91.0110 Allergy to milk products, unspecified; Z95.0 Presence of cardiac pacemaker; W01.198A Fall on same level from slipping, tripping and stumbling with subsequent striking against other object, initial encounter; Y93.89 Activity, other specified; Y92.89 Other specified places as the place of occurrence of the external cause; Y99.8 Other external cause status
CPT/HCPCS: 12001; 73110

== ENCOUNTER → 2025-05-29 | Outpatient (CLI) | payer OTHER ==
[~2025-05-29] MED LIST changes: +ACET-1080 PO; +CEPH500C PO
[2025-05-29 11:36] LABS: Hematocrit 38.2 % (36.0-46.0); Hemoglobin 12.8 g/dL (12.2-16.2); Mean Corpuscular Hemoglobin 30.2 pg (28.0-32.0); Mean Corpuscular Volume 90.0 fL (80.0-100.0); Nucleated Red Blood Cells % 0.1 %
[2025-05-29 11:42] LABS: Iron 64.0 ug/dL (50-170)
[2025-05-29 11:45] LABS: Total Iron Binding Capacity 303.0 ug/dL (250-425)
== END | disposition home or self-care (01) ==
LOC: LAB 10:33
PROVIDERS: ATTEND Nurse Practitioner Family
DX: K92.2 Gastrointestinal hemorrhage, unspecified (principal)
CPT/HCPCS: 36415; 83540; 83550; 85025